=== PATIENT | female | born 1965 | race Two or more races ===

== ENCOUNTER → 2020-12-23 11:13 | Outpatient (BNVA) | payer OTHER, SELFPAY | PROVIDERS: PCP Pediatrics; Referring Provider Pediatrics; Visit Provider Nurse Practitioner | DX: Z76.89 Persons encountering health services in other specified circumstances (principal) | CPT/HCPCS: Q3014 ==

== ENCOUNTER 2020-12-27 15:46 | Outpatient (REF) | payer OTHER, SELFPAY ==
[2020-12-27 16:15] LABS: MANUAL DIFF FLAG NO
[2020-12-27 16:19] LABS: Basophils Percent Auto 0.4 % (0-2); Eosinophils Absolute Auto 0.1 X10*3/uL (0.0-0.4); Eosinophils Percent Auto 1.5 % (0-4); Hematocrit 36.5 % (37-47); Hemoglobin 11.9 g/dl (12.0-16.0); Imm Gran Abs Auto 0.01 X10*3/uL (0.00-0.03); Imm Gran Pct Auto 0.2 % (0.0-0.4); Lymphocytes Absolute Auto 1.8 X10*3/uL (1.2-4.9); Lymphocytes Percent Auto 39.9 % (20-40); Mean Corpuscular HGB Conc 32.6 g/dl (31.0-35.0); Mean Corpuscular Hemoglobin 30.1 pg (27.0-33.0); Mean Corpuscular Volume 92.4 fL (80-98); Mean Platelet Volume 10.5 fL (9.4-12.3); Monocytes Absolute Auto 0.4 X10*3/uL (0.1-1.2); Monocytes Percent Auto 9.3 % (2-11); Neutrophils Absolute Auto 2.2 X10*3/uL (2.0-8.3); Neutrophils Percent Auto 48.7 % (45-73); Platelet Count 189 X10*3/uL (160-400); Red Blood Count 3.95 X10*6/uL (4.20-5.50); Red Cell Distribution Width 12.8 % (11.0-16.0); White Blood Count 4.6 X10*3/uL (4.8-10.8)
[2020-12-27 16:40] LABS: Alanine Aminotransferase 29 U/L (0-31); Albumin Level 4.2 g/dL (3.5-5.0); Alkaline Phosphatase 90 U/L (39-117); Amylase 84 U/L (28-100); Anion Gap 12 (12-20); Aspartate Amino Transferase 21 U/L (5-31); Bilirubin Total 0.5 mg/dL (0.0-1.0); Blood Urea Nitrogen 18 mg/dL (9-16); Calcium 9.1 mg/dL (8.4-10.2); Carbon Dioxide 32 mmol/L (22-29); Chloride 103 mmol/L (96-108); Estimated Glomerular Filt Rate 47; Glucose Random 99 mg/dL (60-115); Lipase 49 U/L (8-78); Potassium 4.2 mmol/L (3.3-5.1); Sodium 143 mmol/L (135-145); Total Protein 6.7 g/dL (6.5-8.0)
== END 2020-12-27 15:47 | disposition home or self-care (01) ==
LOC: HO.LAB 15:46
PROVIDERS: Visit Provider Nurse Practitioner
DX: K21.9 Gastro-esophageal reflux disease without esophagitis (principal); K22.4 Dyskinesia of esophagus; R13.10 Dysphagia, unspecified; R63.4 Abnormal weight loss
CPT/HCPCS: 36415; 80053; 82150; 83690; 85025

== ENCOUNTER → 2021-03-09 09:37 | Outpatient (BNVA) | payer OTHER, SELFPAY | PROVIDERS: PCP Pediatrics; Visit Provider Nurse Practitioner | DX: R13.10 Dysphagia, unspecified (principal); K22.4 Dyskinesia of esophagus; K21.9 Gastro-esophageal reflux disease without esophagitis; K59.00 Constipation, unspecified; R63.4 Abnormal weight loss; R14.0 Abdominal distension (gaseous) | CPT/HCPCS: Q3014 ==

== ENCOUNTER 2021-07-07 11:04 | Outpatient (REF) | payer OTHER, SELFPAY ==
--- NOTE | ~2021-07-07 | XR_ITS ---
EXAMINATION: XR FOOT, LEFT CLINICAL INFORMATION: Left foot pain COMPARISON: None TECHNIQUE: AP, lateral, and oblique views of the left foot. FINDINGS: The bones and soft tissues are normal. No fracture. Alignment is anatomic. Joint spaces are maintained. XR/XR foot LT min 3V IMPRESSION: Normal left foot.
== END 2021-07-07 11:05 | disposition home or self-care (01) ==
LOC: HO.XRAY 11:04
PROVIDERS: PCP Pediatrics; Visit Provider Pediatrics
DX: M79.671 Pain in right foot (principal); M79.672 Pain in left foot
CPT/HCPCS: 73630

== ENCOUNTER → 2021-09-12 09:57 | Outpatient (BNVA) | payer OTHER, SELFPAY | PROVIDERS: PCP Pediatrics; Referring Provider Pediatrics; Visit Provider Nurse Practitioner | DX: K59.00 Constipation, unspecified (principal); K22.4 Dyskinesia of esophagus; K21.9 Gastro-esophageal reflux disease without esophagitis; R14.0 Abdominal distension (gaseous); R13.10 Dysphagia, unspecified | CPT/HCPCS: 99212 ==

== ENCOUNTER → 2021-12-14 10:23 | Outpatient (BNVA) | payer OTHER, SELFPAY | PROVIDERS: PCP Pediatrics; Referring Provider Pediatrics; Visit Provider Nurse Practitioner | DX: K22.4 Dyskinesia of esophagus (principal); K21.9 Gastro-esophageal reflux disease without esophagitis; K59.00 Constipation, unspecified; R13.10 Dysphagia, unspecified; R14.0 Abdominal distension (gaseous); R07.9 Chest pain, unspecified; M81.0 Age-related osteoporosis without current pathological fracture | CPT/HCPCS: 99212 ==

== ENCOUNTER 2022-02-06 10:11 | Outpatient (REF) | payer OTHER, SELFPAY ==
--- NOTE | ~2022-02-06 | FL_ITS ---
EXAMINATION: FL BARIUM SWALLOW CLINICAL INFORMATION: Dysphagia COMPARISON: None TECHNIQUE: Barium swallow examination is performed using fluoroscopic evaluation in addition to multiple fluoroscopic spot views. The patient is imaged both upright and prone and using both thick and thin sulfate along with effervescent granules. Barium was also administered. Fluoroscopy time: 0.7 minutes DAP: 7.4 Gycm2 Images: 37 FINDINGS: The swallowing mechanism is normal. No aspiration or penetration is seen. Esophageal motility is normal. There is a small sliding type hiatal hernia. No esophageal mass stricture or mucosal irregularity is seen. No reflux is seen. The barium tablet passed freely into the stomach. FL/FL barium swallow IMPRESSION: Small sliding hiatal hernia otherwise unremarkable exam.
== END 2022-02-06 10:12 | disposition home or self-care (01) ==
LOC: HO.XRAY 10:11
PROVIDERS: PCP Pediatrics; Visit Provider Nurse Practitioner
DX: R13.10 Dysphagia, unspecified (principal); R07.9 Chest pain, unspecified
CPT/HCPCS: 74220

== ENCOUNTER → 2022-08-24 14:31 | Outpatient (BNVA) | payer OTHER, SELFPAY | PROVIDERS: PCP Pediatrics; Visit Provider Nurse Practitioner | DX: K21.9 Gastro-esophageal reflux disease without esophagitis (principal); K59.00 Constipation, unspecified; K22.4 Dyskinesia of esophagus; R13.10 Dysphagia, unspecified | CPT/HCPCS: 99212 ==

== ENCOUNTER 2023-01-25 11:53 | Outpatient (REF) | payer OTHER, SELFPAY ==
--- NOTE | ~2023-01-25 | XR_ITS ---
EXAMINATION: XR THORACOLUMBAR SPINE CLINICAL INFORMATION: Mid back pain. COMPARISON: Chest radiograph 02/10/2019. TECHNIQUE: 3 views thoracic spine. FINDINGS: The vertebral alignment is normal. No intrinsic bony abnormality. The disc heights and neural foramina are well maintained. The endplates and posterior elements are normal. No fracture or subluxation. The surrounding prevertebral soft tissues are unremarkable. Since the prior study, a left chest wall pacemaker has been placed with three leads, one in the atria, one in the coronary sinus and one in the right ventricle. XR/XR thoracic spine 2V IMPRESSION: Unremarkable examination of the thoracic spine.
== END 2023-01-25 11:54 | disposition home or self-care (01) ==
LOC: HO.XRAY 11:53
PROVIDERS: PCP Pediatrics; Visit Provider Pediatrics
DX: M54.6 Pain in thoracic spine (principal)
CPT/HCPCS: 72070

== ENCOUNTER → 2023-02-22 13:54 | Outpatient (BNVA) | payer OTHER, SELFPAY | PROVIDERS: PCP Pediatrics; Visit Provider Nurse Practitioner | DX: K59.00 Constipation, unspecified (principal); K21.9 Gastro-esophageal reflux disease without esophagitis; K22.4 Dyskinesia of esophagus; R10.11 Right upper quadrant pain; R13.10 Dysphagia, unspecified; M54.2 Cervicalgia; M54.50 Low back pain, unspecified | CPT/HCPCS: 99212 ==

== ENCOUNTER 2023-02-26 16:07 | Outpatient (REF) | payer OTHER, SELFPAY ==
--- NOTE | ~2023-02-26 | XR_ITS ---
EXAMINATION: XR CERVICAL SPINE XR LUMBAR SPINE CLINICAL INDICATIONS: Neck pain and back pain. COMPARISON: Lumbar spine 06/13/2018. TECHNIQUE: Lumbar spine 3 views. Cervical spine 3 views. FINDINGS: LUMBAR SPINE: There is normal lumbar lordosis. There is loss of L2-L3 disc height with ventral spondylosis. The rest of the disc heights, vertebral heights and alignment is normal. No visible acute fracture, dislocation or subluxation seen. No aggressive lytic or sclerotic process. The SI joints are symmetrical and normal. The paravertebral soft tissues are normal. CERVICAL SPINE: There is normal cervical lordosis. The vertebral heights, alignment and disc heights are normal. There is a soft tissue density in the right mid neck on AP view, question neck mass. XR/XR cervical spine 2V IMPRESSION: Degenerative disc changes L2-L2 disc levels with mild ventral spondylosis. No visible acute fracture or dislocation seen. Unremarkable cervical spine exam except for a soft tissue mass right mid neck. Correlate with CT or ultrasound of the neck.
--- NOTE | ~2023-02-26 | XR_ITS ---
EXAMINATION: XR CERVICAL SPINE XR LUMBAR SPINE CLINICAL INDICATIONS: Neck pain and back pain. COMPARISON: Lumbar spine 06/13/2018. TECHNIQUE: Lumbar spine 3 views. Cervical spine 3 views. FINDINGS: LUMBAR SPINE: There is normal lumbar lordosis. There is loss of L2-L3 disc height with ventral spondylosis. The rest of the disc heights, vertebral heights and alignment is normal. No visible acute fracture, dislocation or subluxation seen. No aggressive lytic or sclerotic process. The SI joints are symmetrical and normal. The paravertebral soft tissues are normal. CERVICAL SPINE: There is normal cervical lordosis. The vertebral heights, alignment and disc heights are normal. There is a soft tissue density in the right mid neck on AP view, question neck mass. XR/XR lumbar spine 2-3V IMPRESSION: Degenerative disc changes L2-L2 disc levels with mild ventral spondylosis. No visible acute fracture or dislocation seen. Unremarkable cervical spine exam except for a soft tissue mass right mid neck. Correlate with CT or ultrasound of the neck.
== END 2023-02-26 16:08 | disposition home or self-care (01) ==
LOC: HO.XRAY 16:07
PROVIDERS: PCP Pediatrics; Visit Provider Nurse Practitioner
DX: M54.2 Cervicalgia (principal); M54.50 Low back pain, unspecified
CPT/HCPCS: 72040; 72100

== ENCOUNTER 2023-03-29 09:08 | Outpatient (REF) | payer OTHER, SELFPAY ==
--- NOTE | ~2023-03-29 | US_ITS ---
EXAMINATION: US ABDOMEN COMPLETE CLINICAL INFORMATION: Right upper quadrant pain. COMPARISON: CT abdomen and pelvis 10/17/2018. Ultrasound abdomen complete 09/17/2018. TECHNIQUE: Real-time imaging of the abdominal viscera. FINDINGS: PANCREAS: Normal. ABDOMINAL AORTA: The proximal, mid, and distal segments are normal in caliber. INFERIOR VENA CAVA: Visualized portions are normal. LIVER: The liver is normal in size. The liver contour is normal. There is diffuse increased liver parenchymal echogenicity. No focal hepatic lesion. There is no intrahepatic biliary duct dilatation seen. GALLBLADDER: The gallbladder is physiologically distended. Multiple mobile gallstones are present. No evidence of gallbladder wall thickening or pericholecystic fluid. COMMON BILE DUCT: Normal in caliber measuring 0.5 cm in diameter. RIGHT KIDNEY: At the interpolar aspect medially, a 2.5 cm in maximal diameter benign, simple cyst is seen, for which no imaging follow-up is recommended. No hydronephrosis or renal calculi. The kidney measures 11.4 cm in maximum dimension. LEFT KIDNEY: Normal. No hydronephrosis. No renal calculi or focal parenchymal lesions. The kidney measures 11.2 cm in maximum dimension. SPLEEN: Normal. The spleen measures 9.5 cm in maximum dimension. FREE FLUID: None. US/US abdomen complete IMPRESSION: 1. There is cholelithiasis, without cholecystitis or choledocholithiasis. 2. There is generalized increase in hepatic echotexture, consistent with fatty infiltration or hepatocellular disease. Please correlate clinically. No focal hepatic mass or intrahepatic biliary dilatation is seen. 3. A 2.5 cm benign, simple right renal cyst is seen, for which no imaging follow-up is recommended.
== END 2023-03-29 09:09 | disposition home or self-care (01) ==
LOC: HO.US 09:08
PROVIDERS: PCP Pediatrics; Visit Provider Nurse Practitioner
DX: R10.11 Right upper quadrant pain (principal)
CPT/HCPCS: 76700

== ENCOUNTER 2023-05-28 08:46 | Outpatient (REF) | payer OTHER, SELFPAY ==
--- NOTE | ~2023-05-28 | CT_ITS ---
EXAMINATION: CT SOFT TISSUE NECK WITH CONTRAST CLINICAL INFORMATION: Abnormal findings. Question mass on recent spinal radiographs. COMPARISON: No relevant prior imaging. TECHNIQUE: Following the intravenous administration of 60 mL of Omnipaque 350 intravenous contrast, helical imaging was performed in the axial plane with generation of coronal and sagittal reformatted images. This CT examination was performed using dose optimization techniques as appropriate, variously including the following: *Automated exposure control *Adjustment of mA and/or kV according to patient size (this includes techniques or standardized protocols for targeted exams where dose is matched to indication/reason for exam; i.e. extremities or head) *Use of iterative reconstruction technique DLP: 343 mGy-cm FINDINGS: Mucosal spaces are symmetric. Parapharyngeal and retromaxillary fat is preserved. Pharmacovigilance Safety Expert spaces are symmetric. The parotid and submandibular glands are normal. The tongue base and epiglottis are normal. Preepiglottic fat is preserved. Glottic and subglottic airways are widely patent. The thyroid gland is normal and the remainder of the visualized visceral soft tissues are normal. There are no pathologically enlarged cervical lymph nodes. No mediastinal or axillary adenopathy is visualized within the [id number] of this examination. Lung apices are clear. The aortic arch apex is normal. Cervical carotid and vertebral arteries are patent. Internal jugular veins fill symmetrically. There is no acute osseous finding. Specifically no worrisome lytic or blastic osseous lesion. Grossly no spinal canal compromise. The skull base is intact. No mastoid middle ear effusion. No active paranasal sinus disease. Limited visualization of the intracranial anatomy reveals no abnormal finding. CT/CT soft tissue neck w IV con IMPRESSION: Unremarkable soft tissue neck CT scan. No discrete enhancing soft tissue mass or adenopathy.
[2023-05-28] MEDS: iohexoL 350 MG/ML 100 ML INFUS..BTL IV (09:44)
[2023-05-29 11:18] LABS: Creatinine POC 0.9 mg/dL (0.5-1.4); GFR POC > 60
== END 2023-05-28 08:47 | disposition home or self-care (01) ==
LOC: HO.CT 08:46
PROVIDERS: Visit Provider Nurse Practitioner
DX: M54.2 Cervicalgia (principal); R13.10 Dysphagia, unspecified; R20.2 Paresthesia of skin; R63.4 Abnormal weight loss; R93.89 Abnormal findings on diagnostic imaging of other specified body structures
CPT/HCPCS: 70491; 82565; Q9967

== ENCOUNTER 2023-05-28 09:44 | Outpatient (REF) | payer OTHER, SELFPAY ==
[2023-05-28 10:22] LABS: MANUAL DIFF FLAG NO
[2023-05-28 11:33] LABS: Basophils Percent Auto 0.7 % (0-2); Eosinophils Absolute Auto 0.2 X10*3/uL (0.0-0.4); Eosinophils Percent Auto 2.8 % (0-4); Hematocrit 37.4 % (37.0-47.0); Hemoglobin 12.2 g/dl (12.0-16.0); Imm Gran Abs Auto 0.02 X10*3/uL (0.00-0.03); Imm Gran Pct Auto 0.4 % (0.0-0.4); Lymphocytes Absolute Auto 1.9 X10*3/uL (1.2-4.9); Lymphocytes Percent Auto 35.1 % (20-40); Mean Corpuscular HGB Conc 32.6 g/dl (31.0-35.0); Mean Corpuscular Hemoglobin 30.6 pg (27.0-33.0); Mean Corpuscular Volume 93.7 fL (80.0-98.0); Monocytes Absolute Auto 0.4 X10*3/uL (0.1-1.2); Monocytes Percent Auto 6.5 % (2-11); Neutrophils Percent Auto 54.5 % (45-73); Platelet Count 228 X10*3/uL (160-400); Red Blood Count 3.99 X10*6/uL (4.20-5.50); Red Cell Distribution Width 13.1 % (11.0-16.0); White Blood Count 5.4 X10*3/uL (4.8-10.8)
[2023-05-28 12:43] LABS: Blood Urea Nitrogen 20 mg/dL (9-16); Estimated Glomerular Filt Rate 45
[2023-05-28 13:08] LABS: Lipase 41 U/L (8-78); TSH reflex Free T4 1.28 uIU/mL (0.32-4.0)
== END 2023-05-28 09:45 | disposition home or self-care (01) ==
LOC: HO.LAB 09:44
PROVIDERS: Absent Provider Pediatrics; PCP Pediatrics; Visit Provider Nurse Practitioner
DX: I10 Essential (primary) hypertension (principal); E11.9 Type 2 diabetes mellitus without complications; R93.89 Abnormal findings on diagnostic imaging of other specified body structures
CPT/HCPCS: 36415; 82565; 83690; 84443; 84520; 85025

== ENCOUNTER 2023-06-04 10:55 | Outpatient (AMB) | payer OTHER, SELFPAY ==
--- NOTE | 2023-06-04 11:02 | A.OFFVIS_ITS ---
Intake Vital Signs 06/04/23 11:06 Height 5 ft 6 in Weight 233 lb 3.985 oz BMI 37.6 BP 123/63 Blood Pressure Location Rt brachial Position Sitting Pulse 81 Intake Visit Reasons: Follow up CT and US Intake Note: Patient presents to in office visit follow up of CT and US. CC: Patient c/o RUQ abdominal pain with nausea, vomiting, and diarrhea. She reports bloating, dizzinness, feeling short of breath when bending down, and blood when she wipes. Denies other GI Symptoms. 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 Now on Emgaly. Having pain that is described as tingling that starts in her tailbone and seems to her to go all the way up her spine in her neck. Her pcp gave her methocarbamol and ordered PT and a thoracic spine xray.? I will add cervical and lumbar spine xray for her convenience. She is having a sharp/pressure pain that starts in the right flank and goes around under my breast. It is worse with touching, laying on that side. It is unclear if it is r/t eating or BM's. I will get US to r/o GB disease. We reviewed the barium swallow in it does not show any severe findings or worsening of her known hiatal hernia that is small and sliding.? She continues on her pantoprazole with good control of her heartburn, on dicyclomine for control of her esophageal spasms, and bisacodyl with good control of her constipation. ROV 6 mos. (2) Constipation: ?Code(s): K59.00 - Constipation, unspecified (3) GERD (gastroesophageal reflux disease): ?Code(s): K21.9 - Gastro-esophageal reflux disease without esophagitis (4) Esophageal spasm: ?Code(s): K22.4 - Dyskinesia of esophagus (5) Low back pain: ?Code(s): M54.50 - Low back pain, unspecified (6) Neck pain: ?Code(s): M54.2 - Cervicalgia (7) Dysphagia: ?Comment: Most likely esophageal spasm/dysmotility as it resolved with dicyclomine ?Code(s): R13.10 - Dysphagia, unspecified ? ? ? Orders: Orders US abdomen complet e Today R10.11 - Right upp er quadrant pain ? XR cervical spine 2V Today M54.2 - Cervicalgi a, M54.50 - Low ba ck pain, unspecifi ed ? XR lumbar spine 2- 3V Today M54.2 - Cervicalgi a, M54.50 - Low ba ck pain, unspecifi ed ? Medications: Refilled dicyclomine 20 mg (2 x 10 mg) PO QID 30 days 240 caps 6RF K22.4 - Dyskinesia of esophagus, R13 .10 - Dysphagia, u nspecified ? pantoprazole 40 mg? PO BID 60 t abs 6RF K21.9 - Gastro-eso phageal reflux dis ease without esoph agitis ? simethicone 180 mg? PO QID 120 caps 6RF R14.0 - Abdominal distension (gaseou s) ? docusate sodium 100 mg? PO BID 60 caps 6RF K59.00 - Constipat ion, unspecified ? bisacodyl (Dulcola x (bisacodyl)) 10 mg (2 x 5 mg) P O BEDTIME 30 days 60 tabs 6RF K59.00 - Constipat ion, unspecified ? ULTRASOUND OF THE ABDOMEN 04/04/23 FINDINGS: PANCREAS: Normal. ABDOMINAL AORTA: The proximal, mid, and distal segments are normal in caliber. INFERIOR VENA CAVA: Visualized portions are normal. LIVER: The liver is normal in size. The liver contour is normal. There is diffuse increased liver parenchymal echogenicity.? No focal hepatic lesion. There is no intrahepatic biliary duct dilatation seen. GALLBLADDER: The gallbladder is physiologically distended. Multiple mobile gallstones are present. No evidence of gallbladder wall thickening or pericholecystic fluid. COMMON BILE DUCT: Normal in caliber measuring 0.5 cm in diameter. RIGHT KIDNEY: At the interpolar aspect medially, a 2.5 cm in maximal diameter benign, simple cyst is seen, for which no imaging follow-up is recommended. No hydronephrosis or renal calculi. The kidney measures 11.4 cm in maximum dimension. LEFT KIDNEY: Normal. No hydronephrosis. No renal calculi or focal parenchymal lesions. The kidney measures 11.2 cm in maximum dimension. SPLEEN: Normal. The spleen measures 9.5 cm in maximum dimension. FREE FLUID: None. US/US abdomen complete IMPRESSION: ? 1. There is cholelithiasis, without cholecystitis or choledocholithiasis. ? 2. There is generalized increase in hepatic echotexture, consistent with fatty infiltration or hepatocellular disease. Please correlate clinically. No focal hepatic mass or intrahepatic biliary dilatation is seen. ? 3. A 2.5 cm benign, simple right renal cyst is seen, for which no imaging follow-up is recommended. X-RAY OF THE CERVICAL THORACIC SPINE 03/07/23 FINDINGS: LUMBAR SPINE: There is normal lumbar lordosis. There is loss of L2-L3 disc height with ventral spondylosis. The rest of the disc heights, vertebral heights and alignment is normal. No visible acute fracture, dislocation or subluxation seen. No aggressive lytic or sclerotic process. The SI joints are symmetrical and normal. The paravertebral soft tissues are normal. CERVICAL SPINE: There is normal cervical lordosis. The vertebral heights, alignment and disc heights are normal. There is a soft tissue density in the right mid neck on AP view, question neck mass. XR/XR lumbar spine 2-3V IMPRESSION: Degenerative disc changes L2-L2 disc levels with mild ventral spondylosis. No visible acute fracture or dislocation seen. ? Unremarkable cervical spine exam except for a soft tissue mass right mid neck. Correlate with CT or ultrasound of the neck. ? CORRESPONDENCE . On 04/05/23 @ 09:39 Dania Laguerre Wrote To Mario PT CT scheduled for 04/16 and follow up in office was scheduled for 04/19. On 04/05/23 @ 08:08 MarioSharon Wrote To Dania Laguerre Please get her in to see me n the next week or 2 to go over her US. ? ? TODAY'S VISIT [place] #declines She is here today with her daughter who is supportive. We review the results and she has multiple mobile gallstones, so this COULD be the pain but I would like to get a HIDA scan. The pain does not present in the usual GB pattern, it is always there. Her T spine and C spine seem to be okay, had lumbar spondylosis worst at L2. Will print xrays for her PCP. She developed sudden N/V/D a few days ago, so will get a GI panel. NO fevers or chills, no known sick contacts, ate at [employer] (cheese and zambrano fries!!), no seafood or undercooked food, no new medications. She really has not eaten since, so no diarrhea r/t this. ROV 4 weeks PFSH Medical History Constipation Surgical History Hx of section Hx of colonoscopy Hx of endoscopy Family History Mother Thyroid condition Asthma Heart problem Diabetes Migraines Sister Thyroid condition Asthma Diabetes Migraines Father Asthma Diabetes Migraines Brother Asthma Diabetes Migraines Heart problem Social History Household Members: Children Alcohol intake: current Alcohol intake frequency: does not drink Current occupational status: disabled Review of Systems Const Denies fatigue, Denies fever(s), Denies night sweats, Denies poor appetite, Reports weakness and Denies weight loss ENT Reports Normal hearing present, Denies dental pain, Denies dysphagia, Denies hearing loss, Denies mouth pain, Denies odynophagia, Denies throat swelling, Denies tongue swelling and Reports other (Dentition adequate) Card Reports no additional complaints Resp Reports no additional complaints GI Reports abdominal pain, Denies melena, Denies bloating, Denies hematochezia, Denies constipation, Denies GI cramping, Denies dysphagia, Denies excessive flatus, Denies early satiety, Reports heartburn, Reports diarrhea, Reports nausea, Denies odynophagia, Denies vomiting and Denies hematemesis Skin/Breast Denies pruritus, Denies lesions, Denies rash and Denies jaundice Neuro Reports Normal hearing present, Denies Abnormal speech present and Reports weakness Endo Denies fatigue Aller/Immun Denies throat swelling and Denies tongue swelling Physical Exam Vital Signs: Last Vital Signs Pulse 81 06/04/23 11:06 BP 123/63 06/04/23 11:06 BMI result Body Mass Index 37.6 Const General: cooperative, no acute distress, well developed and well groomed Nutritional Appearance: well nourished and obese Orientation/consciousness: oriented to person, oriented to place and oriented to time Limitations: No language barrier, ambulation with cane, ambulation with walker and wheelchair HEENT Head: Yes normocephalic and Yes atraumatic Eyes General: appearance normal, both eyes and all related structures Pupils: Equal, round and reactive pupils present Neck Neck: Yes normal visual inspection and Yes no lymphadenopathy Thyroid: Thyroid normal Resp Effort & Inspection: normal respiratory effort and able to speak in complete sentences Auscultation: clear to auscultation bilaterally Cardio Rate: regular rate Rhythm: regular rhythm Heart sounds: Normal, physiologic split S2 sound present Peripheral pulses: radial pulses present and posterior tibial pulses present GI Inspection: No distended and No Abdominal panniculus present Palpation (GI): Soft to palpation, Tenderness to palpation present (GI) in the RUQ, no guarding, not rigid and No hepatosplenomegaly present Percussion: Yes normal to percussion Auscultation: normal bowel sounds Rectal Exam - Female: deferred Skin General skin exam: no rashes or lesions noted, turgor normal, skin not dry, no jaundice, No spider nevi and no striae Rashes: no rashes Nails: normal Neuro General: oriented to person, oriented to place and oriented to time Cranial nerves: Yes Equal, round and reactive pupils present and Yes Normal hearing present Speech: No Abnormal speech present Extrem General: Yes normal to inspection, No clubbing, No cyanosis and No edema Psych Appearance: grossly normal and well kempt Mental Status: mental status grossly normal Speech and movement: Normal speech and movement present Affect: normal affect Attitude: cooperative Thought process: Normal thought process present and not confabulating Thought content: Normal thought content present Insight: Limited insight present (Psych) Judgement: Limited judgement present (Psych) Assessment & Plan Assessment & Plan (1) RUQ abdominal pain: Code(s): R10.11 - Right upper quadrant pain Plan: [place] #declines She is here today with her daughter who is supportive. We review the results and she has multiple mobile gallstones, so this COULD be the pain but I would like to get a HIDA scan. The pain does not present in the usual GB pattern, it is always there. Her T spine and C spine seem to be okay, had lumbar spondylosis worst at L2. Will print xrays for her PCP. She developed sudden N/V/D a few days ago, so will get a GI panel. NO fevers or chills, no known sick contacts, ate at [employer] (cheese and zambrano fries!!), no seafood or undercooked food, no new medications. She really has not eaten since, so no diarrhea r/t this. ROV 4 weeks (2) Gallstones: Code(s): K80.20 - Calculus of gallbladder without cholecystitis without obstruction (3) Acute diarrhea: Code(s): R19.7 - Diarrhea, unspecified (4) Dysphagia: Comment: Most likely esophageal spasm/dysmotility as it resolved with dicyclomine Code(s): R13.10 - Dysphagia, unspecified (5) GERD (gastroesophageal reflux disease): Code(s): K21.9 - Gastro-esophageal reflux disease without esophagitis (6) Constipation: Code(s): K59.00 - Constipation, unspecified (7) Esophageal spasm: Code(s): K22.4 - Dyskinesia of esophagus Orders: Orders NM hepatobiliary w pharm Today R10.11 - Right upper quadrant pain GI Panel Today R10.11 - Right upper quadrant pain Coding Level of Care Code Est Pt Level 4 (22284) Diagnoses RUQ abdominal pain R10.11 Gallstones K80.20 Acute diarrhea R19.7 Dysphagia R13.10 GERD (gastroesophageal reflux disease) K21.9 Constipation K59.00 Esophageal spasm K22.4
[2023-06-04 11:06] VITALS: BP 123/63; PULSE 81; BMI 37.6
== END 2023-06-04 11:44 | disposition home or self-care (01) ==
PROVIDERS: PCP Pediatrics; Visit Provider Nurse Practitioner
DX: R10.11 Right upper quadrant pain (principal); K80.20 Calculus of gallbladder without cholecystitis without obstruction; R19.7 Diarrhea, unspecified; R13.10 Dysphagia, unspecified; K21.9 Gastro-esophageal reflux disease without esophagitis; K59.00 Constipation, unspecified; K22.4 Dyskinesia of esophagus
CPT/HCPCS: 99214

== ENCOUNTER → 2023-06-04 10:55 | Outpatient (BNVA) | payer OTHER, SELFPAY | PROVIDERS: PCP Pediatrics; Visit Provider Nurse Practitioner | DX: K80.20 Calculus of gallbladder without cholecystitis without obstruction (principal); R10.11 Right upper quadrant pain; R19.7 Diarrhea, unspecified; R13.10 Dysphagia, unspecified; K21.9 Gastro-esophageal reflux disease without esophagitis; K59.00 Constipation, unspecified; K22.4 Dyskinesia of esophagus | CPT/HCPCS: 99212 ==

== ENCOUNTER 2023-06-05 10:11 | Outpatient (REF) | payer OTHER, SELFPAY ==
[2023-06-06 10:26] LABS: Adenovirus F 40/41 Not Detected (Not Detect.); Astrovirus Not Detected (Not Detect.); Campylobacter Not Detected (Not Detect.); Cryptosporidium Not Detected (Not Detect.); Cyclospora cayetanensis Not Detected (Not Detect.); E. coli EAEC Not Detected (Not Detect.); E. coli EPEC Not Detected (Not Detect.); E. coli ETEC Not Detected (Not Detect.); E. coli STEC Not Detected (Not Detect.); Entamoeba histolytica Not Detected (Not Detect.); Giardia lamblia Not Detected (Not Detect.); Norovirus GI/GII Not Detected (Not Detect.); Plesiomonas shigelloides Not Detected (Not Detect.); Rotavirus A Not Detected (Not Detect.); Salmonella Not Detected (Not Detect.); Sapovirus Not Detected (Not Detect.); Shigella sp./EIEC Not Detected (Not Detect.); Vibrio Not Detected (Not Detect.); Vibrio Cholerae Not Detected (Not Detect.); Yersinia enterocolitica Not Detected (Not Detect.)
== END 2023-06-05 10:12 | disposition home or self-care (01) ==
LOC: HO.LAB 10:11
PROVIDERS: PCP Pediatrics; Visit Provider Nurse Practitioner
DX: R10.11 Right upper quadrant pain (principal)
CPT/HCPCS: 87507

== ENCOUNTER → 2023-06-28 10:46 | Outpatient (REF) | payer OTHER, SELFPAY ==
--- NOTE | ~2023-06-28 | NM_ITS ---
EXAMINATION: BILIARY TRACT IMAGING STUDY WITH CCK CLINICAL INFORMATION: Right upper quadrant abdominal pain.. COMPARISON: Abdominal ultrasound done on 03/29/2023. TECHNIQUE: Serial gamma scintillation camera images were obtained over the abdomen for a total observation period of 60 minutes following the intravenous administration of 5.0 mCi Tc-99m mebrofenin. The radiotracer was injected through right antecubital superficial vein without complications. FINDINGS: There is good concentration of activity in the liver by 5 minutes post injection. Biliary activity is visualized by 16 minutes. The gallbladder is well visualized by 55 minutes. Small bowel is well visualized by 18 minutes. At 60 minutes post radiopharmaceutical injection, a 30-minute infusion of 2.1 micrograms Sincalide was then begun and an additional 40 minutes of images were obtained. There is good emptying of the gallbladder. By the end of the study there is good clearance of activity from the liver and visualization of diffuse small bowel activity. The calculated gallbladder ejection fraction is 77% (normal gallbladder ejection fraction is greater than 35%). NM/NM hepatobiliary w pharm IMPRESSION: Visualization of the gallbladder is evidence of a patent cystic duct and strong evidence against the diagnosis of acute cholecystitis. The common bile duct is patent. Gallbladder emptying and ejection fraction are normal. Liver function appears normal.
== END ==
LOC: HO.NUCMED 10:46
PROVIDERS: Visit Provider Nurse Practitioner
DX: R10.11 Right upper quadrant pain (principal)
CPT/HCPCS: 78227; A9537; J2805

== ENCOUNTER 2023-07-02 11:16 | Outpatient (AMB) | payer OTHER, SELFPAY ==
--- NOTE | 2023-07-02 11:18 | A.OFFVIS_ITS ---
Intake Vital Signs 07/02/23 11:20 Height 5 ft 6 in Weight 231 lb 0.711 oz BMI 37.3 BP 125/66 Blood Pressure Location Rt brachial Position Sitting Pulse 79 Intake Visit Reasons: 3 week follow up Intake Note: Patient presents to in office visit today in 3 weeks follow up for NM hepatobiliary scan. CC: Patient c/o RLQ abdominal pain with radiation to her back and leg, nausea, and diarrhea. She reports bloating, vertigo, and shortness of breath. Hospital Laboratory Technician Required: No Accompanied by: Self / Same As Patient Allergies lamotrigine [LAMOTRIGINE] Allergy (Unknown, Verified 07/02/23 11:23) SEVERE RASH sumatriptan [SUMATRIPTAN] Allergy (Unknown, Verified 07/02/23 11:23) SEVERE RASH adhesive tape Allergy (Unknown, Uncoded 12/14/21 10:37) Rash HPI 3 week follow up HPI Details Assessment & Plan (1) RUQ abdominal pain: ?Code(s): R10.11 - Right upper quadrant pain ?Plan: [place] #declines She is here today with her daughter who is supportive. We review the results and she has multiple mobile gallstones, so this COULD be the pain but I would like to get a HIDA scan. The pain does not present in the usual GB pattern, it is always there. Her T spine and C spine seem to be okay, had lumbar spondylosis worst at L2. Will print xrays for her PCP. She developed sudden N/V/D a few days ago, so will get a GI panel. NO fevers or chills, no known sick contacts, ate at [employer] (cheese and zambrano fries!!), no seafood or undercooked food, no new medications. She really has not eaten since, so no diarrhea r/t this. ROV 4 weeks (2) Gallstones: ?Code(s): K80.20 - Calculus of gallbladder without cholecystitis without obstruction (3) Acute diarrhea: ?Code(s): R19.7 - Diarrhea, unspecified (4) Dysphagia: ?Comment: Most likely esophageal spasm/dysmotility as it resolved with dicyclomine ?Code(s): R13.10 - Dysphagia, unspecified (5) GERD (gastroesophageal reflux diseas e): ?Code(s): K21.9 - Gastro-esophageal reflux disease without esophagitis (6) Constipation: ?Code(s): K59.00 - Constipation, unspecified (7) Esophageal spasm: ?Code(s): K22.4 - Dyskinesia of esophagus ? ? ? Orders: Orders NM hepatobiliary w pharm Today R10.11 - Right upp er quadrant pain ? GI Panel Today R10.11 - Right upp er quadrant pain ? LABS: 06/05/23-[address]: Helen Marte MD ORDERED: GI Panel Test Result Flag Reference Site Campylobacter Not Detected Not Detect. P. shigelloides Not Detected Not Detect. Salmonella Not Detected Not Detect. Vibrio Not Detected Not Detect. Vibrio Cholerae Not Detected Not Detect. Y. enterocolit. Not Detected Not Detect. E. coli EAEC Not Detected Not Detect. E. coli EPEC Not Detected Not Detect. E. coli ETEC Not Detected Not Detect. E. coli STEC Not Detected Not Detect. E. coli O157 Not applicable Not Detect. E. coli containing the O157 antigen are a subset of Shiga-like toxin-producing E. coli (STEC). Shigella/EIEC Not Detected Not Detect. Cryptosporidium Not Detected Not Detect. Cyclospora Not Detected Not Detect. E. histolytica Not Detected Not Detect. Giardia lamblia Not Detected Not Detect. Adenovirus Not Detected Not Detect. Astrovirus Not Detected Not Detect. Norovirus Not Detected Not Detect. Rotavirus A Not Detected Not Detect. Sapovirus Not Detected Not Detect. HIDA SCAN 07/01/23 ? ?IMPRESSION: Visualization of the gallbladder is evidence of a patent cystic duct and strong evidence against the diagnosis of acute cholecystitis. The common bile duct is patent. Gallbladder emptying and ejection fraction are normal. Liver function appears normal. ? TODAY'S VISIT [place] #declines She continues to have pain in the RUQ that is worse with prolonged sitting. Diarrhea is lessening, but not the pain. GI panel neg. HIDA shows most leley pain is NOT from gallstones. She is a diabetic (unknown to me) and she is having early satiety, nausea, and poor appetite. She is also on Trulicity. I will get GES. She is on a lot of medications, so I will not treat until I have cedric test (multiple cardiac etc meds). Says she is on nortriptyline for my heart. (??). May consider CT going forward if no answers on the pain. Will get UA to see if any reason to suspect renal stones in pain syndrome. She is on bentyl bid for her esoph motility, and this has not effect on the pain (seems to lessen susp of bowel cramping). ROV 8 weeks. PFSH Medical History Constipation Surgical History Hx of section Hx of colonoscopy Hx of endoscopy Family History Mother Thyroid condition Asthma Heart problem Diabetes Migraines Sister Thyroid condition Asthma Diabetes Migraines Father Asthma Diabetes Migraines Brother Asthma Diabetes Migraines Heart problem Social History Household Members: Children Alcohol intake: current Alcohol intake frequency: does not drink Current occupational status: disabled Review of Systems Const Denies fatigue, Denies fever(s), Denies night sweats, Denies poor appetite and Denies weight loss ENT Reports Normal hearing present, Denies dental pain, Denies dysphagia, Denies hearing loss, Denies mouth pain, Denies odynophagia, Denies throat swelling, Denies tongue swelling and Reports other (Dentition adequate) Card Reports no additional complaints Resp Reports no additional complaints GI Reports abdominal pain, Denies melena, Denies bloating, Denies hematochezia, D enies constipation, Denies GI cramping, Denies dysphagia, Denies excessive flatus, Reports early satiety, Reports heartburn, Reports diarrhea, Reports nausea, Denies odynophagia, Denies vomiting and Denies hematemesis Skin/Breast Denies pruritus, Denies lesions, Denies rash and Denies jaundice Neuro Reports Normal hearing present and Denies Abnormal speech present Endo Denies fatigue Aller/Immun Denies throat swelling and Denies tongue swelling Physical Exam Vital Signs: Last Vital Signs Pulse 79 07/02/23 11:20 BP 125/66 07/02/23 11:20 BMI result Body Mass Index 37.3 Const General: cooperative, no acute distress, well developed and well groomed Nutritional Appearance: well nourished and obese Orientation/consciousness: oriented to person, oriented to place and oriented to time Limitations: language barrier HEENT Head: Yes normocephalic and Yes atraumatic Eyes General: appearance normal, both eyes and all related structures Pupils: Equal, round and reactive pupils present Neck Neck: Yes normal visual inspection and Yes no lymphadenopathy Thyroid: Thyroid normal Resp Effort & Inspection: normal respiratory effort and able to speak in complete sentences Auscultation: clear to auscultation bilaterally Cardio Rate: regular rate Rhythm: regular rhythm Heart sounds: Normal, physiologic split S2 sound present Peripheral pulses: radial pulses present and posterior tibial pulses present GI Inspection: No distended, Yes Abdominal panniculus present and Yes obesity Palpation (GI): Soft to palpation, Tenderness to palpation present (GI) in the RUQ, no guarding, not rigid and No hepatosplenomegaly present Percussion: Yes normal to percussion Auscultation: normal bowel sounds Rectal Exam - Female: deferred Skin General skin exam: no rashes or lesions noted, turgor normal, skin not dry, no jaundice, No spider nevi and no striae Rashes: no rashes Nails: normal Neuro General: oriented to person, oriented to place and oriented to time Cranial nerves: Yes Equal, round and reactive pupils present and Yes Normal hearing present Speech: No Abnormal speech present Extrem General: Yes normal to inspection, No clubbing, No cyanosis and No edema Psych Appearance: grossly normal and well kempt Mental Status: mental status grossly normal Speech and movement: Normal speech and movement present Affect: normal affect Attitude: cooperative Thought process: Normal thought process present and not confabulating Thought content: Normal thought content present Insight: Limited insight present (Psych) Judgement: Limited judgement present (Psych) Results Reviewed Results Reviewed: LABS: 06/05/23-[address]: Helen Marte MD ORDERED: GI Panel Test Result Flag Reference Site Campylobacter Not Detected Not Detect. P. shigelloides Not Detected Not Detect. Salmonella Not Detected Not Detect. Vibrio Not Detected Not Detect. Vibrio Cholerae Not Detected Not Detect. Y. enterocolit. Not Detected Not Detect. E. coli EAEC Not Detected Not Detect. E. coli EPEC Not Detected Not Detect. E. coli ETEC Not Detected Not Detect. E. coli STEC Not Detected Not Detect. E. coli O157 Not applicable Not Detect. E. coli containing the O157 antigen are a subset of Shiga-like toxin-producing E. coli (STEC). Shigella/EIEC Not Detected Not Detect. Cryptosporidium Not Detected Not Detect. Cyclospora Not Detected Not Detect. E. histolytica Not Detected Not Detect. Giardia lamblia Not Detected Not Detect. Adenovirus Not Detected Not Detect. Astrovirus Not Detected Not Detect. Norovirus Not Detected Not Detect. Rotavirus A Not Detected Not Detect. Sapovirus Not Detected Not Detect. HIDA SCAN 07/01/23 ? ?IMPRESSION: Visualization of the gallbladder is evidence of a patent cystic duct and strong evidence against the diagnosis of acute cholecystitis. The common bile duct is patent. Gallbladder emptying and ejection fraction are normal. Liver function appears normal. Assessment & Plan Assessment & Plan (1) RUQ abdominal pain: Code(s): R10.11 - Right upper quadrant pain Plan: [place] #declines She continues to have pain in the RUQ that is worse with prolonged sitting. Diarrhea is lessening, but not the pain. GI panel neg. HIDA shows most likely pain is NOT from gallstones. She is a diabetic (unknown to me) and she is having early satiety, nausea, and poor appetite. She is also on Trulicity. I will get GES. She is on a lot of medications, so I will not treat until I have the test (multiple cardiac etc meds). Says she is on nortriptyline for my heart. (??). May consider CT going forward if no answers on the pain. Will get UA to see if any reason to suspect renal stones in pain syndrome. She is on bentyl bid for her esoph motility, and this has not effect on the pain (seems to lessen susp of bowel cramping). ROV 8 weeks. (2) Early satiety: Code(s): R68.81 - Early satiety (3) Gallstones: Code(s): K80.20 - Calculus of gallbladder without cholecystitis without obstruction (4) Acute diarrhea: Code(s): R19.7 - Diarrhea, unspecified (5) Dysphagia: Comment: Most likely esophageal spasm/dysmotility as it resolved with dicyclomine Code(s): R13.10 - Dysphagia, unspecified (6) GERD (gastroesophageal reflux disease): Code(s): K21.9 - Gastro-esophageal reflux disease without esophagitis (7) Abdominal bloating: Code(s): R14.0 - Abdominal distension (gaseous) (8) Diabetes: Code(s): E11.9 - Type 2 diabetes mellitus without complications Orders: Orders NM gastric emptying study 07/02/23 R68.81 - Early satiety UA CC w/rflx Micro + Cult 07/02/23 R10.11 - Right upper quadrant pain Coding Level of Care Code Est Pt Level 4 (49200) Diagnoses RUQ abdominal pain R10.11 Early satiety R68.81 Gallstones K80.20 Acute diarrhea R19.7 Dysphagia R13.10 GERD (gastroesophageal reflux disease) K21.9 Abdominal bloating R14.0 Diabetes E11.9
[2023-07-02 11:20] VITALS: BP 125/66; PULSE 79; BMI 37.3
== END 2023-07-02 12:04 | disposition home or self-care (01) ==
PROVIDERS: PCP Pediatrics; Visit Provider Nurse Practitioner
DX: R10.11 Right upper quadrant pain (principal); R68.81 Early satiety; K80.20 Calculus of gallbladder without cholecystitis without obstruction; R19.7 Diarrhea, unspecified; R13.10 Dysphagia, unspecified; K21.9 Gastro-esophageal reflux disease without esophagitis; R14.0 Abdominal distension (gaseous); E11.9 Type 2 diabetes mellitus without complications
CPT/HCPCS: 99214

== ENCOUNTER → 2023-07-02 11:16 | Outpatient (BNVA) | payer OTHER, SELFPAY | PROVIDERS: PCP Pediatrics; Visit Provider Nurse Practitioner | DX: R10.11 Right upper quadrant pain (principal); R68.81 Early satiety; K80.20 Calculus of gallbladder without cholecystitis without obstruction; R19.7 Diarrhea, unspecified; R13.10 Dysphagia, unspecified; K21.9 Gastro-esophageal reflux disease without esophagitis; R14.0 Abdominal distension (gaseous); E11.9 Type 2 diabetes mellitus without complications | CPT/HCPCS: 99212 ==

== ENCOUNTER → 2023-08-01 07:45 | Outpatient (REF) | payer OTHER, SELFPAY ==
--- NOTE | ~2023-08-01 | NM_ITS ---
EXAMINATION: RADIONUCLIDE SOLID FOOD GASTRIC EMPTYING 4-HOUR STUDY CLINICAL INFORMATION: Early satiety. COMPARISON: Hepatobiliary scan done on 06/28/2023. TECHNIQUE: A standard meal consisting of 4 oz of Egg Beaters brand tagged with 1000 microcuries Tc-99m Sulfur Colloid, 8 oz water and 2 slices of toast with jelly was administered orally to the patient. Images were obtained using a dual head gamma camera in the anterior and posterior projections over of the stomach immediately post ingestion and at hourly intervals up to 4 hours post ingestion. The anterior and posterior counts at each time interval were averaged using the geometric mean and expressed as percentage of the immediate post ingestion counts. FINDINGS: There is good visualization of activity in the stomach immediately post ingestion. As the study progresses, there is delayed clearance of activity from the stomach and delayed visualization of progressively increasing small bowel activity. By the end of the study, there is significant retention noted in the stomach. Retention in the stomach at each time interval was: 1 hour 55% (normal 37%-90%) 2 hours 46% (normal 30%-60%) 3 hours 30% 4 hours 17% (normal 0%-10%) CT/CT gastric emptying study IMPRESSION: Abnormal grade 1 delayed 4 hour gastric emptying study. (For solid meal, rapid gastric emptying is less than 30% at 60 minutes. Delayed gastric emptying criteria is more than 60% remaining at 120 minutes or more than 10% at 240 minutes. The 4-hour value is the best discriminator of a normal or abnormal result). Gastric emptying study grading per JNMT Consensus Recommendations in 2008 (https://tech.snmjournals.org/content/36/44) Grade 1 (mild retention): 11-20% at 4h Grade 2 (moderate retention): 21-35% at 4h Grade 3 (severe retention): 36-50% at 4h Grade 4 (very severe retention): >50% retention at 4h
== END ==
LOC: HO.NUCMED 07:45
PROVIDERS: PCP Pediatrics; Visit Provider Nurse Practitioner
DX: R68.81 Early satiety (principal)
CPT/HCPCS: 78264; A9541

== ENCOUNTER 2023-08-23 12:55 | Outpatient (AMB) | payer OTHER, SELFPAY ==
[2023-08-23 13:11] VITALS: BP 145/78; PULSE 82; BMI 35.8
--- NOTE | 2023-08-23 13:11 | MHC.OFFVIS ---
Intake Vital Signs 08/23/23 13:11 Height 5 ft 6 in Weight 222 lb BMI 35.8 BP 145/78 H Blood Pressure Location Lt brachial Position Sitting Pulse 82 Intake Visit Reasons: 6 months F/u Intake Note: 6 month Follow up Patient cc: nauseas, between diarrhea and constipation and some swallowing problems. Devulcanizer Tender Required: No Accompanied by: Self / Same As Patient Allergies lamotrigine [LAMOTRIGINE] Allergy (Unknown, Verified 08/23/23 13:07) SEVERE RASH sumatriptan [SUMATRIPTAN] Allergy (Unknown, Verified 08/23/23 13:07) SEVERE RASH adhesive tape Allergy (Unknown, Uncoded 12/14/21 10:37) Rash HPI 6 months F/u HPI Details Assessment & Plan (1) RUQ abdominal pain: Code(s): R10.11 - Right upper quadrant pain Plan: [place] #declines She continues to have pain in the RUQ that is worse with prolonged sitting. Diarrhea is lessening, but not the pain. GI panel neg. HIDA shows most likely pain is NOT from gallstones. She is a diabetic (unknown to me) and she is having early satiety, nausea, and poor appetite. She is also on Trulicity. I will get GES. She is on a lot of medications, so I will not treat until I have the test (multiple cardiac etc meds). Says she is on nortriptyline for my heart. (??). May consider CT going forward if no answers on the pain. Will get UA to see if any reason to suspect renal stones in pain syndrome. She is on bentyl bid for her esoph motility, and this has not effect on the pain (seems to lessen susp of bowel cramping). ROV 8 weeks. (2) Early satiety: Code(s): R68.81 - Early satiety (3) Gallstones: Code(s): K80.20 - Calculus of gallbladder without cholecystitis without obstruction (4) Acute diarrhea: Code(s): R19.7 - Diarrhea, unspecified (5) Dysphagia: Comment: Most likely esophageal spasm/dysmotility as it resolved with dicyclomine Code(s): R13.10 - Dysphagia, unspecified (6) GERD (gastroesophageal reflux disease): Code(s): K21.9 - Gastro-esophageal reflux disease without esophagitis (7) Abdominal bloating: Code(s): R14.0 - Abdominal distension (gaseous) (8) Diabetes: Code(s): E11.9 - Type 2 diabetes mellitus without complications Orders: Orders NM gastric emptying study 07/02/23 R68.81 - Early satiety UA CC w/rflx Micro + Cult 07/02/23 R10.11 - Right upper quadrant pain GASTRIC EMPTYING STUDY 08/01/23 ? IMPRESSION: Abnormal grade 1 delayed 4 hour gastric emptying study. (For solid meal, rapid gastric emptying is less than 30% at 60 minutes. Delayed gastric emptying criteria is more than 60% remaining at 120 minutes or more than 10% at 240 minutes. The 4-hour value is the best discriminator of a normal or abnormal result). Gastric emptying study grading per JNMT Consensus Recommendations in 2008 (https://tech.snmjournals.org/content/36/44) Grade 1 (mild retention): 11-20% at 4h Grade 2 (moderate retention): 21-35% at 4h Grade 3 (severe retention): 36-50% at 4h Grade 4 (very severe retention): >50% retention at 4h . TODAY'S VISIT [place] #declines She is so happy she wants to hug me! The reglan at 5mg solved her pain problems. She is having no s/e. Now she is only moving her bowels q3 days, at first the bisacodyl worked well not not now. We will progress to LInzess 145mcg and titrate. ROV 3 weeks. [facility] Medical History (Updated 09/20/23 @ 16:12 by BRIAN Castañeda) Early satiety Acute diarrhea Abnormal x-ray examination Constipation Constipation Surgical History Hx of endoscopy Hx of colonoscopy Hx of section Family History Mother Thyroid condition Asthma Heart problem Diabetes Migraines Sister Thyroid condition Asthma Diabetes Migraines Father Asthma Diabetes Migraines Brother Asthma Diabetes Migraines Heart problem Social History Household Members: Children Alcohol intake: current Alcohol intake frequency: does not drink Current occupational status: disabled Review of Systems Const Denies fatigue, Denies fever(s), Denies night sweats, Denies poor appetite and Denies weight loss ENT Reports Normal hearing present, Denies dental pain, Reports dysphagia, Denies hearing loss, Denies mouth pain, Denies odynophagia, Denies throat swelling, Denies tongue swelling and Reports other (Dentition adequate) Card Reports no additional complaints Resp Reports no additional complaints GI Denies abdominal pain, Denies melena, Reports bloating, Denies hematochezia, Reports constipation, Denies GI cramping, Reports dysphagia, Denies excessive flatus, Reports early satiety, Reports heartburn, Denies diarrhea, Denies nausea, Denies odynophagia, Denies vomiting and Denies hematemesis Skin/Breast Denies pruritus, Denies lesions, Denies rash and Denies jaundice Neuro Reports Normal hearing present and Denies Abnormal speech present Endo Denies fatigue Aller/Immun Denies throat swelling and Denies tongue swelling Physical Exam Vital Signs: Last Vital Signs Pulse 82 08/23/23 13:11 BP 145/78 H 08/23/23 13:11 BMI result Body Mass Index 35.8 Const General: cooperative, no acute distress, well developed and well groomed Nutritional Appearance: well nourished and obese Orientation/consciousness: oriented to person, oriented to place and oriented to time Limitations: No language barrier HEENT Head: Yes normocephalic and Yes atraumatic Eyes General: appearance normal, both eyes and all related structures Pupils: Equal, round and reactive pupils present Neck Neck: Yes normal visual inspection and Yes no lymphadenopathy Thyroid: Thyroid normal Resp Effort & Inspection: normal respiratory effort and able to speak in complete sentences Auscultation: clear to auscultation bilaterally Cardio Rate: regular rate Rhythm: regular rhythm Heart sounds: Normal, physiologic split S2 sound present Peripheral pulses: radial pulses present and posterior tibial pulses present GI Inspection: No distended, Yes Abdominal panniculus present and Yes obesity Palpation (GI): Soft to palpation, nontender, no guarding, not rigid and No hepatosplenomegaly present Percussion: Yes normal to percussion Auscultation: normal bowel sounds Rectal Exam - Female: deferred Skin General skin exam: no rashes or lesions noted, turgor normal, skin not dry, no jaundice, No spider nevi and no striae Rashes: no rashes Nails: normal Neuro General: oriented to person, oriented to place and oriented to time Cranial nerves: Yes Equal, round and reactive pupils present and Yes Normal hearing present Speech: No Abnormal speech present Extrem General: Yes normal to inspection, No clubbing, No cyanosis and No edema Psych Appearance: grossly normal and well kempt Mental Status: mental status grossly normal Speech and movement: Normal speech and movement present Affect: normal affect Attitude: cooperative Thought process: Normal thought process present and not confabulating Thought content: Normal thought content present Insight: Limited insight present (Psych) Judgement: Limited judgement present (Psych) Assessment & Plan Assessment & Plan (1) Gastroparesis: Comment: 2022 GES=mild but significant delay Code(s): K31.84 - Gastroparesis Plan: [place] #declines She is so happy she wants to hug me! The reglan at 5mg solved her pain problems. She is having no s/e. Now she is only moving her bowels q3 days, at first the bisacodyl worked well not not now. We will progress to LInzess 145mcg and titrate. ROV 3 weeks. . (2) Chronic idiopathic constipation: Code(s): K59.04 - Chronic idiopathic constipation (3) RUQ abdominal pain: Code(s): R10.11 - Right upper quadrant pain (4) Dysphagia: Comment: Most likely esophageal spasm/dysmotility as it resolved with dicyclomine Code(s): R13.10 - Dysphagia, unspecified (5) Esophageal spasm: Code(s): K22.4 - Dyskinesia of esophagus (6) GERD (gastroesophageal reflux disease): Code(s): K21.9 - Gastro-esophageal reflux disease without esophagitis (7) Constipation: Code(s): K59.00 - Constipation, unspecified (8) Gallstones: Comment: 2022- HIDA scan Code(s): K80.20 - Calculus of gallbladder without cholecystitis without obstruction Plan [place] #declines She is so happy she wants to hug me! The reglan at 5mg solved her pain problems. She is having no s/e. Now she is only moving her bowels q3 days, at first the bisacodyl worked well not not now. We will progress to LInzess 145mcg and titrate. She continues on her dicyclomine for esophageal spasm and is also on diltiazem. Her pantoprazole twice a day is controlling her GERD well along with her simethicone. ROV 3 weeks. Medications: New linaclotide (Linzess) 145 mcg PO QAM 30 caps 6RF K59.04 - Chronic idiopathic constipation Refilled dicyclomine 20 mg (2 x 10 mg) PO QID 240 caps 6RF 30 days K22.4 - Dyskinesia of esophagus, R13.10 - Dysphagia, unspecified metoclopramide HCl (Reglan) provider aware of possible interaction with citalopram and is monitoring 5 mg PO QIDACHS 120 tabs 6RF K31.84 - Gastroparesis docusate sodium 100 mg PO BID 60 caps 6RF K59.00 - Constipation, unspecified bisacodyl (Dulcolax (bisacodyl)) 10 mg (2 x 5 mg) PO BEDTIME 60 tabs 6RF 30 days K59.00 - Constipation, unspecified pantoprazole 40 mg PO BID 60 tabs 6RF K21.9 - Gastro-esophageal reflux disease without esophagitis Coding Level of Care Code Est Pt Level 3 (47085) Diagnoses Gastroparesis K31.84 Chronic idiopathic constipation K59.04 RUQ abdominal pain R10.11 Dysphagia R13.10 Esophageal spasm K22.4 GERD (gastroesophageal reflux disease) K21.9 Constipation K59.00 Gallstones K80.20
== END 2023-08-23 14:20 | disposition home or self-care (01) ==
PROVIDERS: Visit Provider Nurse Practitioner
DX: K31.84 Gastroparesis (principal); K59.04 Chronic idiopathic constipation; R10.11 Right upper quadrant pain; R13.10 Dysphagia, unspecified; K22.4 Dyskinesia of esophagus; K21.9 Gastro-esophageal reflux disease without esophagitis; K59.00 Constipation, unspecified; K80.20 Calculus of gallbladder without cholecystitis without obstruction
CPT/HCPCS: 99213

== ENCOUNTER → 2023-08-23 12:55 | Outpatient (BNVA) | payer OTHER, SELFPAY | PROVIDERS: Visit Provider Nurse Practitioner | DX: K59.04 Chronic idiopathic constipation (principal); K31.84 Gastroparesis; K80.20 Calculus of gallbladder without cholecystitis without obstruction; R10.11 Right upper quadrant pain; R13.10 Dysphagia, unspecified; K22.4 Dyskinesia of esophagus; K21.9 Gastro-esophageal reflux disease without esophagitis | CPT/HCPCS: 99212 ==

== ENCOUNTER 2023-09-20 15:05 | Outpatient (AMB) | payer OTHER, SELFPAY ==
[2023-09-20 15:08] VITALS: BP 122/68; PULSE 81; BMI 36.4
--- NOTE | 2023-09-20 15:08 | MHC.OFFVIS ---
Intake Vital Signs 09/20/23 15:08 Height 5 ft 6 in Weight 225 lb 4.999 oz BMI 36.4 BP 122/68 Blood Pressure Location Lt brachial Position Sitting Pulse 81 Intake Visit Reasons: Follow up GERD Intake Note: Patient returns to in office visit today in medication follow up. CC: Patient placed in Linzess at her last visit, reports the medication is a bomb and it's helping her with constipation. She states she continues to have trouble swallowing and was found to have and esophageal hernia. 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 Diarrhea is lessening, but not the pain. GI panel neg. HIDA shows most likely pain is NOT from gallstones. She is a diabetic (unknown to me) and she is having early satiety, nausea, and poor appetite. She is also on Trulicity. I will get GES. She is on a lot of medications, so I will not treat until I have the test (multiple cardiac etc meds). Says she is on nortriptyline for my heart. (??). May consider CT going forward if no answers on the pain. Will get UA to see if any reason to suspect renal stones in pain syndrome. She is on bentyl bid for her esoph motility, and this has not effect on the pain (seems to lessen susp of bowel cramping). ROV 8 weeks. (2) Early satiety: Code(s): R68.81 - Early satiety (3) Gallstones: Code(s): K80.20 - Calculus of gallbladder without cholecystitis without obstruction (4) Acute diarrhea: Code(s): R19.7 - Diarrhea, unspecified (5) Dysphagia: Comment: Most likely esophageal spasm/dysmotility as it resolved with dicyclomine Code(s): R13.10 - Dysphagia, unspecified (6) GERD (gastroesophageal reflux disease): Code(s): K21.9 - Gastro-esophageal reflux disease without esophagitis (7) Abdominal bloating: Code(s): R14.0 - Abdominal distension (gaseous) (8) Diabetes: Code(s): E11.9 - Type 2 diabetes mellitus without complications Orders: Orders NM gastric emptying study 07/02/23 R68.81 - Early satiety UA CC w/rflx Micro + Cult 07/02/23 R10.11 - Right upper quadrant pain GASTRIC EMPTYING STUDY 08/01/23 ? IMPRESSION: Abnormal grade 1 delayed 4 hour gastric emptying study. (For solid meal, rapid gastric emptying is less than 30% at 60 minutes. Delayed gastric emptying criteria is more than 60% remaining at 120 minutes or more than 10% at 240 minutes. The 4-hour value is the best discriminator of a normal or abnormal result). Gastric emptying study grading per JNMT Consensus Recommendations in 2008 (https://tech.snmjournals.org/content/36/44) Grade 1 (mild retention): 11-20% at 4h Grade 2 (moderate retention): 21-35% at 4h Grade 3 (severe retention): 36-50% at 4h Grade 4 (very severe retention): >50% retention at 4h . TODAY'S VISIT [place]ian #declines She is doing very well with the reglan!! No more abd pain, eating well, no more diarrhea but some soft stools at times. She is very happy with this and we will continue. She continues on her dicyclomine which is for her esophageal dysmotility and her swallowing has been good. She has gallstones but had a prior HIDA scan that was negative and she is asymptomatic for this. She continues on pantoprazole twice a day and simethicone with good control of her GERD.. She has occasional constipation that is treated well with Colace. ROV 6 mos. [facility] Medical History (Updated 09/20/23 @ 16:12 by BRIAN Castañeda) Early satiety Acute diarrhea Abnormal x-ray examination Constipation Constipation Surgical History Hx of endoscopy Hx of colonoscopy Hx of section Family History Mother Thyroid condition Asthma Heart problem Diabetes Migraines Sister Thyroid condition Asthma Diabetes Migraines Father Asthma Diabetes Migraines Brother Asthma Diabetes Migraines Heart problem Social History Household Members: Children Alcohol intake: current Alcohol intake frequency: does not drink Current occupational status: disabled Review of Systems Const Denies fatigue, Denies fever(s), Denies night sweats, Denies poor appetite and Denies weight loss ENT Reports Normal hearing present, Denies dental pain, Denies dysphagia, Denies hearing loss, Denies mouth pain, Denies odynophagia, Denies throat swelling, Denies tongue swelling and Reports other (Dentition adequate) Card Reports no additional complaints Resp Reports no additional complaints GI Denies abdominal pain, Denies melena, Denies bloating, Denies hematochezia, Denies constipation, Denies GI cramping, Denies dysphagia, Denies excessive flatus, Reports early satiety, Reports heartburn, Denies diarrhea, Denies nausea, Denies odynophagia, Denies vomiting and Denies hematemesis Skin/Breast Denies pruritus, Denies lesions, Denies rash and Denies jaundice Neuro Reports Normal hearing present and Denies Abnormal speech present Endo Denies fatigue Aller/Immun Denies throat swelling and Denies tongue swelling Physical Exam Vital Signs: Last Vital Signs Pulse 81 09/20/23 15:08 BP 122/68 09/20/23 15:08 BMI result Body Mass Index 36.4 Const General: cooperative, no acute distress, well developed and well groomed Nutritional Appearance: well nourished and obese morbidly obese Orientation/consciousness: oriented to person, oriented to place and oriented to time Limitations: No language barrier HEENT Head: Yes normocephalic and Yes atraumatic Eyes General: appearance normal, both eyes and all related structures Pupils: Equal, round and reactive pupils present Neck Neck: Yes normal visual inspection and Yes no lymphadenopathy Thyroid: Thyroid normal Resp Effort & Inspection: normal respiratory effort and able to speak in complete sentences Auscultation: clear to auscultation bilaterally Cardio Rate: regular rate Rhythm: regular rhythm Heart sounds: Normal, physiologic split S2 sound present Peripheral pulses: radial pulses present and posterior tibial pulses present GI Inspection: No distended, No Abdominal panniculus present and Yes obesity Palpation (GI): Soft to palpation, nontender, no guarding, not rigid and No hepatosplenomegaly present Percussion: Yes normal to percussion Auscultation: normal bowel sounds Rectal Exam - Female: deferred Skin General skin exam: no rashes or lesions noted, turgor normal, skin not dry, no jaundice, No spider nevi and no striae Rashes: no rashes Nails: normal Neuro General: oriented to person, oriented to place and oriented to time Cranial nerves: Yes Equal, round and reactive pupils present and Yes Normal hearing present Speech: No Abnormal speech present Extrem General: Yes normal to inspection, No clubbing, No cyanosis and No edema Psych Appearance: grossly normal and well kempt Mental Status: mental status grossly normal Speech and movement: Normal speech and movement present Affect: normal affect Attitude: cooperative Thought process: Normal thought process present and not confabulating Thought content: Normal thought content present Insight: Limited insight present (Psych) Judgement: Limited judgement present (Psych) Assessment & Plan Assessment & Plan (1) Gastroparesis: Comment: 2022 GES=mild but significant delay Code(s): K31.84 - Gastroparesis (2) Chronic idiopathic constipation: Code(s): K59.04 - Chronic idiopathic constipation (3) Gallstones: Comment: 2022- HIDA scan Code(s): K80.20 - Calculus of gallbladder without cholecystitis without obstruction (4) Dysphagia: Comment: Most likely esophageal spasm/dysmotility as it resolved with dicyclomine Code(s): R13.10 - Dysphagia, unspecified (5) GERD (gastroesophageal reflux disease): Code(s): K21.9 - Gastro-esophageal reflux disease without esophagitis Plan [place]ian #declines She is doing very well with the reglan!! No more abd pain, eating well, no more diarrhea but some soft stools at times. She is very happy with this and we will continue. She continues on her dicyclomine which is for her esophageal dysmotility and her swallowing has been good. She has gallstones but had a prior HIDA scan that was negative and she is asymptomatic for this. She continues on pantoprazole twice a day and simethicone with good control of her GERD.. She has occasional constipation that is treated well with Colace. ROV 6 mos. Medications: Refilled dicyclomine 20 mg (2 x 10 mg) PO QID 240 caps 6RF 30 days K22.4 - Dyskinesia of esophagus, R13.10 - Dysphagia, unspecified metoclopramide HCl (Reglan) provider aware of possible interaction with citalopram and is monitoring 5 mg PO QIDACHS 120 tabs 6RF K31.84 - Gastroparesis pantoprazole 40 mg PO BID 60 tabs 6RF K21.9 - Gastro-esophageal reflux disease without esophagitis simethicone 180 mg PO QID 120 caps 6RF R14.0 - Abdominal distension (gaseous) docusate sodium 100 mg PO BID 60 caps 6RF K59.00 - Constipation, unspecified linaclotide (Linzess) 145 mcg PO QAM 30 caps 6RF K59.04 - Chronic idiopathic constipation Coding Level of Care Code Est Pt Level 3 (64247) Diagnoses Gastroparesis K31.84 Chronic idiopathic constipation K59.04 Gallstones K80.20 Dysphagia R13.10 GERD (gastroesophageal reflux disease) K21.9
== END 2023-09-20 15:28 | disposition home or self-care (01) ==
PROVIDERS: PCP Pediatrics; Visit Provider Nurse Practitioner
DX: K31.84 Gastroparesis (principal); K59.04 Chronic idiopathic constipation; K80.20 Calculus of gallbladder without cholecystitis without obstruction; R13.10 Dysphagia, unspecified; K21.9 Gastro-esophageal reflux disease without esophagitis
CPT/HCPCS: 99213

== ENCOUNTER → 2023-09-20 15:05 | Outpatient (BNVA) | payer OTHER, SELFPAY | PROVIDERS: PCP Pediatrics; Visit Provider Nurse Practitioner | DX: K31.84 Gastroparesis (principal); K59.04 Chronic idiopathic constipation; K80.20 Calculus of gallbladder without cholecystitis without obstruction; K21.9 Gastro-esophageal reflux disease without esophagitis; R13.10 Dysphagia, unspecified | CPT/HCPCS: 99212 ==

== ENCOUNTER 2023-11-25 09:09 | Outpatient (REF) | payer OTHER, SELFPAY ==
--- NOTE | ~2023-11-25 | XR_ITS ---
EXAMINATION: XR LUMBOSACRAL SPINE CLINICAL INFORMATION: Chronic right hip pain COMPARISON: Lumbar spine 02/26/2023 TECHNIQUE: Three views of the lumbosacral spine. FINDINGS: There 5 nonrib-bearing lumbar-type vertebral bodies. The height of vertebral bodies is well-maintained. There is mild disc space narrowing with marginal osteophyte formation at L2-L3. There is mild retrolisthesis of L3 with respect to L4. There is mild degenerative facet joint disease at L5-S1. The sacroiliac joints are symmetrical and normal. The paravertebral soft tissues are normal. XR/XR lumbar spine 2-3V IMPRESSION: 1. Degenerative disc disease at L2-L3. 2. Mild retrolisthesis of L3 with respect to L4. 3. Mild degenerative facet joint disease L5-S1.
--- NOTE | ~2023-11-25 | XR_ITS ---
EXAMINATION: XR HIP, RIGHT CLINICAL INFORMATION: Right hip and low back pain COMPARISON: None available. TECHNIQUE: Two views of the right hip. FINDINGS: No fracture. Alignment is anatomic. Hip joint space is maintained. Soft tissues are unremarkable. XR/XR hip RT min 2V IMPRESSION: No bony abnormality of the right hip.
== END 2023-11-25 09:10 | disposition home or self-care (01) ==
LOC: HO.XRAY 09:09
PROVIDERS: PCP Pediatrics; Visit Provider Pediatrics
DX: M25.551 Pain in right hip (principal); M54.50 Low back pain, unspecified
CPT/HCPCS: 72100; 73502

== ENCOUNTER 2024-02-26 11:22 | Outpatient (REF) | payer OTHER, SELFPAY ==
[2024-02-26 14:53] LABS: MANUAL DIFF FLAG NO
[2024-02-26 14:56] LABS: Basophils Percent Auto 0.3 % (0-2); Eosinophils Absolute Auto 0.2 X10*3/uL (0.0-0.4); Eosinophils Percent Auto 2.5 % (0-4); Hematocrit 35.4 % (37.0-47.0); Hemoglobin 11.9 g/dl (12.0-16.0); Imm Gran Abs Auto 0.02 X10*3/uL (0.00-0.03); Imm Gran Pct Auto 0.3 % (0.0-0.4); Lymphocytes Absolute Auto 1.9 X10*3/uL (1.2-4.9); Lymphocytes Percent Auto 28.9 % (20-40); Mean Corpuscular HGB Conc 33.6 g/dl (31.0-35.0); Mean Corpuscular Hemoglobin 30.4 pg (27.0-33.0); Mean Corpuscular Volume 90.3 fL (80.0-98.0); Mean Platelet Volume 11.2 fL (9.4-12.3); Monocytes Absolute Auto 0.5 X10*3/uL (0.1-1.2); Monocytes Percent Auto 7.2 % (2-11); Neutrophils Absolute Auto 3.9 x10*3/uL (2.0-8.3); Neutrophils Percent Auto 60.8 % (45-73); Platelet Count 239 X10*3/uL (160-400); Red Blood Count 3.92 X10*6/uL (4.20-5.50); Red Cell Distribution Width 13.2 % (11.0-16.0); White Blood Count 6.4 X10*3/uL (4.8-10.8)
[2024-02-26 14:57] LABS: Appearance Urine Clear; Color Urine Dark Yellow; Glucose Urine UA 250 mg/dL (Negative); Leukocyte Esterase Urine Negative (Negative); Nitrite Urine Negative (Negative); PH 5.5 (5.0-9.0); Specific Gravity - Urine 1.025 (1.005-1.025); UMIC TRIGGER UACC YES; Urine Blood Negative (Negative); Urine Ketones Trace mg/dL (Negative); Urine Protein 30 (1+) mg/dL (Neg-Trace)
[2024-02-26 15:04] LABS: Bacteria Urine None Seen (None Seen); RBC Urine 0-2 /HPF (0-2); WBC Urine 0-5 /HPF (0-5)
[2024-02-26 17:01] LABS: Alanine Aminotransferase 30 U/L (0-31); Albumin Level 3.8 g/dL (3.5-5.0); Alkaline Phosphatase 102 U/L (39-117); Anion Gap 12 (12-20); Aspartate Amino Transferase 25 U/L (5-31); Bilirubin Direct 0.2 mg/dL (0.0-0.5); Bilirubin Total 0.4 mg/dL (0.0-1.0); Blood Urea Nitrogen 18 mg/dL (9-16); Calcium 9.3 mg/dL (8.4-10.2); Carbon Dioxide 30 mmol/L (22-29); Chloride 101 mmol/L (96-108); Cholesterol 151 mg/dL (<200); Estimated Glomerular Filt Rate 49; Glucose Random 250 mg/dL (60-115); HDL Cholesterol 40 mg/dL (>40); LDL Cholesterol Calculated 78 mg/dL (<100); Potassium 3.8 mmol/L (3.3-5.1); Sodium 139 mmol/L (135-145); Total Protein 6.5 g/dL (6.5-8.0); Triglycerides 166 mg/dL (<150)
[2024-02-26 17:18] LABS: Creatinine Urine 309.93 mg/dL; Microalbum/Creatinine Ratio Ur 15.8 ug/mg cr (<30)
== END 2024-02-26 11:23 | disposition home or self-care (01) ==
LOC: HO.CHCLDS 11:22
PROVIDERS: Visit Provider Pediatrics
DX: E11.9 Type 2 diabetes mellitus without complications (principal); I10 Essential (primary) hypertension; I42.0 Dilated cardiomyopathy; G47.33 Obstructive sleep apnea (adult) (pediatric); Z95.0 Presence of cardiac pacemaker
CPT/HCPCS: 36415; 80048; 80061; 80076; 81001; 82043; 82306; 82570; 84443; 85025

== ENCOUNTER 2024-04-09 11:45 | Outpatient (AMB) | payer OTHER, SELFPAY ==
--- NOTE | 2024-04-09 11:49 | A.OFFVIS_ITS ---
Vital Signs 04/09/24 11:51 Height 5 ft 6 in Weight 212 lb 15.465 oz BMI 34.4 BP 107/55 L Blood Pressure Location Rt brachial Position Sitting Pulse 80 Intake Visit Reasons: 6 months follow up Intake Note: Patient returns to in office visit today in 6 months follow up . CC: Patient reports feeling better and denies having any new GI symptoms. Retail Manager In Training Required: No Retail Manager In Training Name: Patient declined call box wirer. Accompanied by: Self / Same As Patient Allergies lamotrigine [LAMOTRIGINE] Allergy (Unknown, Verified 08/23/23 13:07) SEVERE RASH sumatriptan [SUMATRIPTAN] Allergy (Unknown, Verified 08/23/23 13:07) SEVERE RASH adhesive tape Allergy (Unknown, Uncoded 12/14/21 10:37) Rash HPI HPI 6 months follow up: Details: Assessment & Plan (1) Gastroparesis: Comment: 2022 GES=mild but significant delay Code(s): K31.84 - Gastroparesis (2) Chronic idiopathic constipation: Code(s): K59.04 - Chronic idiopathic constipation (3) Gallstones: Comment: 2022- HIDA scan Code(s): K80.20 - Calculus of gallbladder without cholecystitis without obstruction (4) Dysphagia: Comment: Most likely esophageal spasm/dysmotility as it resolved with dicyclomine Code(s): R13.10 - Dysphagia, unspecified (5) GERD (gastroesophageal reflux disease): Code(s): K21.9 - Gastro-esophageal reflux disease without esophagitis Plan [place]ian #declines She is doing very well with the reglan!! No more abd pain, eating well, no more diarrhea but some soft stools at times. She is very happy with this and we will continue. She continues on her dicyclomine which is for her esophageal dysmotility and her swallowing has been good. She has gallstones but had a prior HIDA scan that was negative and she is asymptomatic for this. She continues on pantoprazole twice a day and simethicone with good control of her GERD.. She has occasional constipation that is treated well with Colace. ROV 6 mos. Medications: Refilled dicyclomine 20 mg (2 x 10 mg) PO QID 240 caps 6RF 30 days K22.4 - Dyskinesia of esophagus, R13.10 - Dysphagia, unspecified metoclopramide HCl (Reglan) provider aware of possible interaction with citalopram and is monitoring 5 mg PO QIDACHS 120 tabs 6RF K31.84 - Gastroparesis pantoprazole 40 mg PO BID 60 tabs 6RF K21.9 - Gastro-esophageal reflux disease without esophagitis simethicone 180 mg PO QID 120 caps 6RF R14.0 - Abdominal distension (gaseous) docusate sodium 100 mg PO BID 60 caps 6RF K59.00 - Constipation, unspecified linaclotide (Linzess) 145 mcg PO QAM 30 caps 6RF K59.04 - Chronic idiopathic constipati . TODAY'S VISIT Jordanian #declines She continues to do well. She continues on her pantoprazole twice a day, Linzess 145 micro g, Colace, simethicone, dicyclomine, and Reglan 5 mg 4 times a day. She remains satisfied with her GI regimen. Return office visit in 6 months [facility] Medical History (Updated 09/20/23 @ 16:12 by BRIAN Castañeda) Early satiety Acute diarrhea Abnormal x-ray examination Constipation Constipation Surgical History Hx of endoscopy Hx of colonoscopy Hx of section Family History Mother Thyroid condition Asthma Heart problem Diabetes Migraines Sister Thyroid condition Asthma Diabetes Migraines Father Asthma Diabetes Migraines Brother Asthma Diabetes Migraines Heart problem Social History Household Members: Children Alcohol intake: current Alcohol intake frequency: does not drink Current occupational status: disabled Review of Systems Const Denies fatigue, Denies fever(s), Denies night sweats, Denies poor appetite and Denies weight loss ENT Reports Normal hearing present, Denies dental pain, Denies dysphagia, Denies hearing loss, Denies mouth pain, Denies odynophagia, Denies throat swelling, Denies tongue swelling and Reports other (Dentition adequate) Card Reports no additional complaints Resp Reports no additional complaints GI Details: Denies abdominal pain, Denies melena, Denies bloating, Denies hematochezia, Reports constipation, Denies GI cramping, Denies dysphagia, Denies excessive flatus, Reports early satiety, Reports heartburn, Denies diarrhea, Denies nausea, Denies odynophagia, Denies vomiting and Denies hematemesis Skin/Breast Denies pruritus, Denies lesions, Denies rash and Denies jaundice Neuro Reports Normal hearing present and Denies Abnormal speech present Endo Denies fatigue Aller/Immun Denies throat swelling and Denies tongue swelling Physical Exam Vital Signs: Last Vital Signs Pulse 80 04/09/24 11:51 BP 107/55 L 04/09/24 11:51 BMI result Body Mass Index 34.4 Const General: cooperative, no acute distress, well developed and well groomed Nutritional Appearance: well nourished and obese Orientation/consciousness: oriented to person, oriented to place and oriented to time Limitations: No language barrier HEENT Head: Yes normocephalic and Yes atraumatic Eyes General: appearance normal, both eyes and all related structures Pupils: Equal, round and reactive pupils present Neck Neck: Yes normal visual inspection and Yes no lymphadenopathy Thyroid: Thyroid normal Resp Effort & Inspection: normal respiratory effort and able to speak in complete sentences Auscultation: clear to auscultation bilaterally Cardio Rate: regular rate Rhythm: regular rhythm Heart sounds: Normal, physiologic split S2 sound present Peripheral pulses: radial pulses present and posterior tibial pulses present GI Inspection: No distended, No Abdominal panniculus present and Yes obesity Palpation (GI): Soft to palpation, nontender, no guarding, not rigid and No hepatosplenomegaly present Percussion: Yes normal to percussion Auscultation: normal bowel sounds Rectal Exam - Female: deferred Skin General skin exam: no rashes or lesions noted, turgor normal, skin not dry, no jaundice, No spider nevi and no striae Rashes: no rashes Nails: normal Neuro General: oriented to person, oriented to place and oriented to time Cranial nerves: Yes Equal, round and reactive pupils present and Yes Normal hearing present Speech: No Abnormal speech present Extrem General: Yes normal to inspection, No clubbing, No cyanosis and No edema Psych Appearance: grossly normal and well kempt Mental Status: mental status grossly normal Speech and movement: Normal speech and movement present Affect: normal affect Attitude: cooperative Thought process: Normal thought process present and not confabulating Thought content: Normal thought content present Insight: Fair insight present (Psych) Judgement: Fair judgement present (Psych) Assessment & Plan Assessment & Plan (1) Gastroparesis: Comment: 2022 GES=mild but significant delay Code(s): K31.84 - Gastroparesis Category: Medical (2) Chronic idiopathic constipation: Code(s): K59.04 - Chronic idiopathic constipation Category: Medical (3) Gallstones: Comment: 2022- HIDA scan Code(s): K80.20 - Calculus of gallbladder without cholecystitis without obstruction Category: Medical (4) GERD (gastroesophageal reflux disease): Code(s): K21.9 - Gastro-esophageal reflux disease without esophagitis Category: Medical (5) Esophageal spasm: Code(s): K22.4 - Dyskinesia of esophagus Category: Medical (6) Dysphagia: Comment: Most likely esophageal spasm/dysmotility as it resolved with dicyclomine Code(s): R13.10 - Dysphagia, unspecified Category: Medical Plan Jordanian #declines She continues to do well. She continues on her pantoprazole twice a day, Linzess 145 micro g, Colace, simethicone, dicyclomine, and Reglan 5 mg 4 times a day. She remains satisfied with her GI regimen. Return office visit in 6 months Medications: Refilled simethicone 180 mg PO QID 120 caps 6RF R14.0 - Abdominal distension (gaseous) metoclopramide HCl (Reglan) provider aware of possible interaction with citalopram and is monitoring 5 mg PO QIDACHS 120 tabs 6RF K31.84 - Gastroparesis dicyclomine 20 mg (2 x 10 mg) PO QID 240 caps 6RF 30 days K22.4 - Dyskinesia of esophagus, R13.10 - Dysphagia, unspecified pantoprazole 40 mg PO BID 60 tabs 6RF K21.9 - Gastro-esophageal reflux disease without esophagitis linaclotide (Linzess) 145 mcg PO QAM 30 caps 6RF K59.04 - Chronic idiopathic constipation bisacodyl 10 mg (2 x 5 mg) PO BEDTIME 60 tabs 6RF K59.00 - Constipation, unspecified Coding Level of Care Code Est Pt Level 3 (69515) Diagnoses Gastroparesis K31.84 Chronic idiopathic constipation K59.04 Gallstones K80.20 GERD (gastroesophageal reflux disease) K21.9 Esophageal spasm K22.4 Dysphagia R13.10
[2024-04-09 11:51] VITALS: BP 107/55; PULSE 80; BMI 34.4
== END 2024-04-09 12:12 | disposition home or self-care (01) ==
PROVIDERS: PCP Pediatrics; Visit Provider Nurse Practitioner
DX: K31.84 Gastroparesis (principal); K59.04 Chronic idiopathic constipation; K80.20 Calculus of gallbladder without cholecystitis without obstruction; K21.9 Gastro-esophageal reflux disease without esophagitis; K22.4 Dyskinesia of esophagus; R13.10 Dysphagia, unspecified
CPT/HCPCS: 99213

== ENCOUNTER → 2024-04-09 11:45 | Outpatient (BNVA) | payer OTHER, SELFPAY | PROVIDERS: PCP Pediatrics; Visit Provider Nurse Practitioner | DX: K31.84 Gastroparesis (principal); K59.04 Chronic idiopathic constipation; K80.20 Calculus of gallbladder without cholecystitis without obstruction; K21.9 Gastro-esophageal reflux disease without esophagitis; K22.4 Dyskinesia of esophagus; R13.10 Dysphagia, unspecified | CPT/HCPCS: 99212 ==

== ENCOUNTER 2024-04-15 18:33 | Outpatient (REF) | payer OTHER, SELFPAY ==
[2024-04-20 10:48] LABS: Alphahydroxymidazolam,GCMS Ur NEGATIVE; Alphahydroxytriazolam, GCMS Ur NEGATIVE; Alprazolam, GCMS Urine NEGATIVE; Aminoclonazepam, GCMS Urine NEGATIVE; Flurazepam Metabolite,GCMS Ur NEGATIVE; Lorazepam GCMS Urine NEGATIVE; Nordiazepam, GCMS Urine NEGATIVE; Oxazepam, GCMS Urine NEGATIVE; Temazepam, GCMS Urine NEGATIVE
== END 2024-04-15 18:34 | disposition home or self-care (01) ==
LOC: HO.HHCLNP 18:33
PROVIDERS: Visit Provider Pediatrics
DX: F41.9 Anxiety disorder, unspecified (principal)
CPT/HCPCS: 80346

== ENCOUNTER 2024-09-25 11:54 | Outpatient (REF) | payer OTHER, SELFPAY ==
--- NOTE | ~2024-09-25 | MM_ITS ---
EXAMINATION: MM SCREENING DIGITAL BREAST TOMOSYNTHESIS, BILATERAL CLINICAL INFORMATION: Screening. Asymptomatic. COMPARISON: Mammography: Comparison is made with available priors TECHNIQUE: Digital breast mammography with tomosynthesis is performed in both the craniocaudal and mediolateral oblique views along with computer-aided detection (CAD). FINDINGS: There are scattered areas of fibroglandular density (ACR BI-RADS breast composition Category b). Pacemaker overlies and obscures the superior posterior left breast on MLO view. There are no significant masses, abnormal calcifications, or other abnormalities. MM/MM tomosynthesis screening BI IMPRESSION: No mammographic evidence of malignancy. ASSESSMENT: BI-RADS BI-RADS 2 - Benign Findings RECOMMENDATION: Routine annual mammography screening. 1 year F/U This examination should not preclude the clinical evaluation of a suspicious palpable abnormality. This patient's information was entered into a reminder system with a target due date for their next mammogram. Electronically signed by: María Smalls DO 10/06/2024 12:47 PM JAMIE
== END 2024-09-25 11:55 | disposition home or self-care (01) ==
LOC: HO.MAMMO 11:54
PROVIDERS: PCP Pediatrics; Visit Provider Pediatrics
DX: Z12.31 Encounter for screening mammogram for malignant neoplasm of breast (principal)
CPT/HCPCS: 77063; 77067

== ENCOUNTER → 2024-09-25 12:30 | Outpatient (BNV) | payer OTHER, SELFPAY | PROVIDERS: PCP Pediatrics; Visit Provider Internal Medicine | DX: Z12.31 Encounter for screening mammogram for malignant neoplasm of breast (principal) | CPT/HCPCS: 77063; 77067 ==

== ENCOUNTER 2025-02-04 11:26 | Outpatient (AMB) | payer OTHER, SELFPAY ==
--- NOTE | 2025-02-04 11:30 | A.OFFVIS_ITS ---
Vital Signs 02/04/25 11:38 Height 5 ft 6 in Weight 201 lb 15.095 oz BMI 32.6 BP 118/76 Blood Pressure Location Rt brachial Position Sitting Pulse 80 Intake Visit Reasons: F/u CIC Intake Note: Patient in office today in follow up of CIC. CC: The patient reports not having appetite and having diarrhea the day after taking Mounjaro. Machine Feller Required: No Machine Feller Services: Machine Feller Offered & Declined Accompanied by: Self / Same As Patient Allergies lamotrigine [LAMOTRIGINE] Allergy (Unknown, Verified 08/23/23 13:07) SEVERE RASH sumatriptan [SUMATRIPTAN] Allergy (Unknown, Verified 08/23/23 13:07) SEVERE RASH adhesive tape Allergy (Unknown, Uncoded 12/14/21 10:37) Rash HPI HPI F/u CIC: Details: Assessment & Plan (1) Gastroparesis: Comment: 2022 GES=mild but significant delay Code(s): K31.84 - Gastroparesis Category: Medical (2) Chronic idiopathic constipation: Code(s): K59.04 - Chronic idiopathic constipation Category: Medical (3) Gallstones: Comment: 2022- HIDA scan Code(s): K80.20 - Calculus of gallbladder without cholecystitis without obstruction Category: Medical (4) GERD (gastroesophageal reflux disease): Code(s): K21.9 - Gastro-esophageal reflux disease without esophagitis Category: Medical (5) Esophageal spasm: Code(s): K22.4 - Dyskinesia of esophagus Category: Medical (6) Dysphagia: Comment: Most likely esophageal spasm/dysmotility as it resolved with dicyclomine Code(s): R13.10 - Dysphagia, unspecified Category: Medical Plan [place] Islander #declines She continues to do well. She continues on her pantoprazole twice a day, Linz ess 145 micro g, Colace, simethicone, dicyclomine, and Reglan 5 mg 4 times a day. She remains satisfied with her GI regimen. Return office visit in 6 months Medications: Refilled simethicone 180 mg PO QID 120 caps 6RF R14.0 - Abdominal distension (gaseous) metoclopramide HCl (Reglan) provider aware of possible interaction with citalopram and is monitoring 5 mg PO QIDACHS 120 tabs 6RF K31.84 - Gastroparesis dicyclomine 20 mg (2 x 10 mg) PO QID 240 caps 6RF 30 days K22.4 - Dyskinesia of esophagus, R13.10 - Dysphagia, unspecified pantoprazole 40 mg PO BID 60 tabs 6RF K21.9 - Gastro-esophageal reflux disease without esophagitis linaclotide (Linzess) 145 mcg PO QAM 30 caps 6RF K59.04 - Chronic idiopathic constipation bisacodyl 10 mg (2 x 5 mg) PO BEDTIME 60 tabs 6RF K59.00 - Constipation, unspecified . TODAY'S VISIT [place] Islander #declines She is c/o malodorous flatulance. Will tx for SIBO and recommend a probiotic. She continues to do well on her medications. She continues on her pantoprazole twice a day, Linzess 145 micro g, Colace, simethicone, dicyclomine, and Reglan 5 mg 4 times a day. ROV 6 mos per pt preference. PFSH Medical History Weight loss RUQ abdominal pain Early satiety Acute diarrhea Abnormal x-ray examination Constipation Constipation Surgical History Hx of endoscopy Hx of colonoscopy Hx of section Family History Mother Thyroid condition Asthma Heart problem Diabetes Migraines Sister Thyroid condition Asthma Diabetes Migraines Father Asthma Diabetes Migraines Brother Asthma Diabetes Migraines Heart problem Social History Household Members: Children Alcohol intake: current Alcohol intake frequency: does not drink Current occupational status: disabled Review of Systems Const Denies fatigue, Denies fever(s), Denies night sweats, Denies poor appetite and Denies weight loss Eyes Details: glasses Reports requires corrective lenses ENT Reports Normal hearing present, Denies dental pain, Denies dysphagia, Denies hearing loss, Denies mouth pain, Denies odynophagia, Denies throat swelling, Denies tongue swelling and Reports other (Dentition adequate) Card Reports no additional complaints Resp Reports no additional complaints GI Details: Denies abdominal pain, Denies melena, Denies bloating, Denies hematochezia, Denies constipation, Denies GI cramping, Denies dysphagia, Reports excessive flatus, Denies early satiety, Reports heartburn, Reports diarrhea, Denies nausea, Denies odynophagia, Denies vomiting and Denies hematemesis Skin/Breast Denies pruritus, Denies lesions, Denies rash and Denies jaundice Neuro Reports Normal hearing present and Denies Abnormal speech present Endo Denies fatigue Aller/Immun Denies throat swelling and Denies tongue swelling Physical Exam Vital Signs: Last Vital Signs Pulse 80 02/04/25 11:38 BP 118/76 02/04/25 11:38 BMI result Body Mass Index 32.6 Const General: cooperative, no acute distress, well developed and well groomed Nutritional Appearance: well nourished and obese Orientation/consciousness: oriented to person, oriented to place and oriented to time Limitations: language barrier HEENT Head: Yes normocephalic and Yes atraumatic Eyes General: appearance normal, both eyes and all related structures Pupils: Equal, round and reactive pupils present Neck Neck: Yes normal visual inspection and Yes no lymphadenopathy Thyroid: Thyroid normal Resp Effort & Inspection: normal respiratory effort and able to speak in complete sentences Auscultation: clear to auscultation bilaterally Cardio Rate: regular rate Rhythm: regular rhythm Heart sounds: Normal, physiologic split S2 sound present Peripheral pulses: radial pulses present and posterior tibial pulses present GI Inspection: No distended, No Abdominal panniculus present and Yes obesity Palpation (GI): Soft to palpation, nontender, no guarding, not rigid and No hepatosplenomegaly present Percussion: Yes normal to percussion Auscultation: normal bowel sounds Rectal Exam - Female: deferred Skin General skin exam: no rashes or lesions noted, turgor normal, skin not dry, no jaundice, No spider nevi and no striae Rashes: no rashes Nails: normal Neuro General: oriented to person, oriented to place and oriented to time Cranial nerves: Yes Equal, round and reactive pupils present and Yes Normal hearing present Speech: No Abnormal speech present Extrem General: Yes normal to inspection, No clubbing, No cyanosis and No edema Psych Appearance: grossly normal and well kempt Mental Status: mental status grossly normal Speech and movement: Normal speech and movement present Affect: normal affect Attitude: cooperative Thought process: Normal thought process present and not confabulating Thought content: Normal thought content present Insight: Limited insight present (Psych) Judgement: Limited judgement present (Psych) Assessment & Plan Assessment & Plan (1) Chronic idiopathic constipation: Code(s): K59.04 - Chronic idiopathic constipation Category: Medical (2) Gastroparesis: Comment: 2022 GES=mild but significant delay Code(s): K31.84 - Gastroparesis Category: Medical (3) GERD (gastroesophageal reflux disease): Code(s): K21.9 - Gastro-esophageal reflux disease without esophagitis Category: Medical (4) Gallstones: Comment: 2022- HIDA scan Code(s): K80.20 - Calculus of gallbladder without cholecystitis without obstruction Category: Medical Plan [place] Islander #declines She is c/o malodorous flatulance. Will tx for SIBO and recommend a probiotic. She continues to do well on her medications. She continues on her pantoprazole twice a day, Linzess 145 micro g, Colace, simethicone, dicyclomine, and Reglan 5 mg 4 times a day. ROV 6 mos per pt preference. Medications: New metronidazole 500 mg PO TID 10 days 30 tabs 0RF Refilled dicyclomine 20 mg (2 x 10 mg) PO QID 30 days 240 caps 6RF K22.4 - Dyskinesia of esophagus, R13.10 - Dysphagia, unspecified simethicone 180 mg PO QID 120 caps 6RF R14.0 - Abdominal distension (gaseous) linaclotide (Linzess) 145 mcg PO QAM 30 caps 6RF K59.04 - Chronic idiopathic constipation bisacodyl 10 mg (2 x 5 mg) PO BEDTIME 60 tabs 6RF K59.00 - Constipation, unspecified docusate sodium 100 mg PO BID 60 caps 6RF K59.00 - Constipation, unspecified metoclopramide HCl 5 mg PO QID 120 tabs 6RF K31.84 - Gastroparesis pantoprazole 40 mg PO BID 60 tabs 6RF K21.9 - Gastro-esophageal reflux disease without esophagitis Coding Level of Care Code Est Pt Level 3 (57917) Diagnoses Chronic idiopathic constipation K59.04 Gastroparesis K31.84 GERD (gastroesophageal reflux disease) K21.9 Gallstones K80.20
[2025-02-04 11:38] VITALS: BP 118/76; PULSE 80; BMI 32.6
--- OUTSIDE RECORDS SUMMARY | 2025-02-04 12:43 | XMS_ITS | Encounter Summary ---
Author Organization [employer] Address [address] [facility] 7t [place] [address] Care Team Providers Care Brusher Warp Name Role Phone Helen Marte MD Primary Care Provider [phone] Malka Travis PharmD Unavailable Reason for Visit * Reason Comments Med Refill Encounter Details Date Type Department Care Team ([facility] Contact Info) Description 01/30/2024 Refill [facility] MED & PEDS [address] [place], [place] [phone] Helen Marte MD [address] [place] [address] Back pain, unspecified back location, unspecified back pain laterality, unspecified chronicity; Anxiety state Social History Tobacco Use Types Packs/Day Years Used Date Smoking Tobacco: Never Passive Smoke Exposure: Never Smokeless Tobacco: Never Depression Answer Date Recorded Patient Health Questionnaire-9 Score 3 01/23/2023 Housing Stability Answer Date Recorded What is your housing situation today? I have jluis oh 08/21/[address] you li ve. Do you have problems with any of the following? None of the above 08/21/2023 Food Insecurity Answer Date Recorded Within the past 12 months, y ou worried that your food would run out before you got money to buy more: Never True 08/21/2023 Within the past 12 months,th e food you bought just didn't last and you didn't have enough money to get more: Never True Transportation Answer Date Recorded In the past 12 months, has l ack of transportation kept you from medical appts, meetings, work or from getting things needed for daily living? No 08/21/2023 Utilities Answer Date Recorded In the past 12 months, has t he electric, gas, oil or water company threatened to shut off services in your home? No 08/21/2023 Depression Answer Date Recorded Patient Health Questionnaire-2 Score 0 01/23/2023 Comments Unknown Sex and Gender Information Value Date Recorded Sex Assigned at Female 09/03/2022 10:15 AM EDT Legal Sex Female 10:15 AM EDT Gender Identity Female 09/03/2022 10:15 AM EDT Sexual Orientation Straight 09/03/2022 10 :15 AM EDT documented as of this encounter Plan of Treatment Upcoming Encounters Date Type Department Care Team ([facility] st Contact Info) Description 02/11/2025 11:00 AM EDT Office Visit [facility] MED & PEDS [address] [place] [address] Helen Marte MD [address] [place] [address] 03/11/2025 11:00 AM EDT Medication Management [facility] MED & PEDS [address] [place] [address] Malka Travis, StefanoD [address] [place] [address] 04/20/2025 11:00 AM EDT Clinical Support [facility] MED & PEDS [address] [place] [address] Dora Matute, YOSHI [address] [place] [address] documented as of this encounter Visit Diagnoses Diagnosis Back pain, unspecified back location, unspecified back pain laterality, unspecified chronicity Anxiety state Anxiety state, unspecified documented in this encounter Additional Health Concerns Assessment Noted Time PHQ-9 Depression Total Score: 3 01/24/20 23 10:25 AM EDT documented as of this encounter Care Teams Brusher Warp Relationship Specialty Start Date End Date Helen Marte MD [address] [place] [address] PCP - General Family Medicine 11/04/18 Malka Travis, StefanoD [address] [place] [address] Pharmacist Internal Medicine 01/14/25 documented as of this encounter
--- OUTSIDE RECORDS SUMMARY | 2025-02-04 12:44 | XMS_ITS | Encounter Summary ---
Author Organization [employer] Address [address] [facility] 7t [place] [address] Care Team Providers Care Credit Reporting Clerk Name Role Phone Helen Marte MD Primary Care Provider [phone] Malka Travis PharmD Unavailable [phone] Reason for Visit * Reason Comments Med Refill Encounter Details Date Type Department [facility] ([facility] Contact Info[facility] Description 09/03/2023 Refill [facility] MED & PEDS [address] [place], [place] [phone] Helen Marte MD [address] [place] [address] Back pain, unspecified back location, unspecified back pain laterality, unspecified chronicity Social History Tobacco Use Types Packs/Day Years [...] Upcoming Encounters Date Type Department Care Team (Late st Contact Info) Description 02/11/2025 11:00 AM EDT Office Visit [facility] MED & PEDS [address] [place] [address] Helen Marte MD [address] [place] [address] 03/11/2025 11:00 AM EDT Medication Management [facility] MED & PEDS [address] [place] [address] Malka Travis PharmD [address] [place] [address] 04/20/2025 11:00 AM EDT Clinical Support [facility] MED & PEDS [address] [place] [address] Dora Matute, YOSHI [address] [place] [address] documented as of this encounter Visit Diagnoses Diagnosis Back pain, unspecified back location, unspecified back pain laterality, unspecified chronicity documented in this encounter Additional Health Concerns Assessment Noted Time PHQ-9 Depression Total Score: 3 01/24/20 23 10:25 AM EDT documented as of this encounter Care Teams Credit Reporting Clerk Relationship Specialty Start Date End Date Helen Marte MD [address] [place] [address] PCP - General Family Medicine 11/04/18 Malka Travis, Afshin [address] [place] [address] Pharmacist Internal Medicine 01/14/25 documented as of this encounter
--- OUTSIDE RECORDS SUMMARY | 2025-02-04 12:44 | XMS_ITS | Encounter Summary ---
Author Organization [employer] Address [address] [facility] 7 [place] [address] Care Team Providers Care Oleo Hasher And Renderer Name Role Phone Helen Marte MD Primary Care Provider [phone] Malka Travis PharmD Unavailable [phone] Reason for Visit * Reason Onset Date Comments Med Refill 12/15/2024 Encounter Details Date Type Department Care Team (Late st Contact Info) Description 12/15/2024 Telephone [facility] MEDICINE [address] [place] [address] Helen Marte MD [address] [place] [address] Med Refill Social History Tobacco Use Types Packs/Day Years Used Date Smoking Tobacco: Never Passive Smoke Exposure: Never Smokeless Tobacco: Never Depression Answer Date Recorded Patient Health Questionnaire-9 Score 7 12/17/2024 Patient Health Questionnaire-9 Score 7 12/17/2024 Last PHQ-9: Questionnaire Data Not on file 0 12/17/2024 Housing Stability Answer Date Recorded What is your housing situation today? I have jluis oh 12/17/[address] you li ve. Do you have problems with any of the following? None of the above 12/17/2024 Food Insecurity Answer Date Recorded Within the past 12 months, y ou worried that your food would run out before you got money to buy more: Never True 12/17/2024 Within the past 12 months,th e food you bought just didn't last and you didn't have enough money to get more: Never True Transportation Answer Date Recorded In the past 12 months, has l ack of transportation kept you from medical appts, meetings, work or from getting things needed for daily living? No 12/17/2024 Utilities Answer Date Recorded In the past 12 months, has t he electric, gas, oil or water company threatened to shut off services in your home? No 12/17/2024 Depression Answer Date Recorded Patient Health Questionnaire-2 Score 2 12/17/2024 Internet Access Answer Date Recorded Internet Access Q1 Yes 12/17/2024 Internet Access Q2 Not on file 12/17/2024 Comments Unknown Sex and Gender Information Value Date Recorded Sex Assigned at Female 09/03/2022 10:15 AM EDT Legal Sex Female 10:15 AM EDT Gender Identity Female 09/03/2022 10:15 AM EDT Sexual Orientation Straight 09/03/2022 10 :15 AM EDT documented as of this encounter Miscellaneous Notes * Telephone Encounter - Mali Dawkins - 12/15/2024 1:36 PM EST TC from pt requesting medication refill. Medications needing refill : - LORazepam (Ativan) 0.5 MG tablet - HYDROcodone-acetaminophen ([place]) 7.5-325 MG tablet To be sent to: [facility] documented in this encounter Plan of Treatment Upcoming Encounters Date Type Department Care Team (Late st Contact Info) Description 02/11/2025 11:00 AM EDT Office Visit [facility] MED & PEDS [address] [place] [address] Helen Marte MD [address] [place] [address] 03/11/2025 11:00 AM EDT Medication Management [facility] MED & PEDS [address] [place] [address] Malka Travis, PharmD [address] [place] [address] 04/20/2025 11:00 AM EDT Clinical Support [facility] MED [facility] PEDS [address] [place] [address] Dora Matute, RN [address] [place] [address] documented as of this encounter Visit Diagnoses Not on filedocumented in this encounter Additional Health Concerns Assessment Noted Time PHQ-9 Depression Total Score: 6 02/26/20 24 11:09 AM EDT documented as of this encounter Care Teams Oleo Hasher And Renderer Relationship Specialty Start Date End Date Helen Marte MD [address] [place] [address] PCP - General Family Medicine 11/04/18 Malka Travis PharmD [address] [place] [address] Pharmacist Internal Medicine 01/14/25 documented as of this encounter
--- OUTSIDE RECORDS SUMMARY | 2025-02-04 12:44 | XMS_ITS | Encounter Summary ---
Author Organization [employer] Address [address] [facility] 7 [place] [address] Care Team Providers Care Creative Designer Name Role Phone Helen Marte MD Primary Care Provider [phone] Malka Travis PharmD Unavailable [phone] Reason for Visit * Reason Onset Date Comments Reschedule 11/15/2023 Encounter Details Date Type Department Care Team ([facility] st Contact Info) Description 11/15/2023 Telephone [facility] MEDICINE [address] [place] [address] Helen Marte MD [address] [place] [address] Reschedule Social History Tobacco Use Types Packs/Day Years [...] encounter Miscellaneous Notes * Telephone Encounter - Yasmeen Capps RN - 11/27/2023 2:02 PM EST Yes, pt had acupuncture location and days and times reviewed. Thank you. * Telephone Encounter - Yasmeen Capps RN - 11/27/2023 1:49 PM EST Placed call to pt regarding message from PCP. Pt informed of XR results and PCP recommendations. Ptstates she would like referral to pain management but in the interim she will try the acupuncture clinic. Pt informed message would be sent to PCP for referral placement. * Telephone Encounter - Yasmeen Capps RN - 11/27/2023 1:49 PM EST ----- Message from Helen Marte MD sent at 11/26/2023 7:58 PM EST ----- Please inform patient that her hip xray is completely normal but her back xrays show arthritic changes everywhere which is causing her pain and discomfort.I can refer her to PT or pain medicine clinic if she would like to.Acupuncture at [facility] could also help.Thanks * Telephone Encounter - Nuria Vail - 11/15/2023 12:05 PM EST Tc from pt requesting r/s [facility] [employer] [facility] appt. documented in this encounter Plan of Treatment Upcoming Encounters Date Type Department Care Team ([facility] st Contact Info) Description 02/11/2025 11:00 AM EDT Office Visit [facility] MED & PEDS [address] [place] [address] Helen Marte MD [address] [place] [address] 03/11/2025 11:00 AM EDT Medication Management [facility] MED & PEDS [address] [place] [address] Malka Travis PharmD [address] [place] [address] 04/20/2025 11:00 AM EDT Clinical Support [facility] MED & PEDS [address] [place] [address] Dora Matute, YOSHI [address] [place] [address] documented as of this encounter Visit Diagnoses Not on filedocumented in this encounter Additional Health Concerns Assessment Noted Time PHQ-9 Depression Total Score: 3 01/24/20 23 10:25 AM EDT documented as of this encounter Care Teams Creative Designer Relationship Specialty Start Date End Date Helen Marte MD [address] [place] [address] PCP - General Family Medicine 11/04/18 Malka Travis, PharmD [address] [place] [address] Pharmacist Internal Medicine 01/14/25 documented as of this encounter
--- OUTSIDE RECORDS SUMMARY | 2025-02-04 12:44 | XMS_ITS | Encounter Summary ---
Author Organization [employer] Address [address] [facility] 7t [place] [address] Care Team Providers Care Manager Reporting Name Role Phone Helen Marte MD Primary Care Provider [phone] Malka Travis PharmD Unavailable [phone] Reason for Visit * Reason Comments Med Refill Encounter Details Date Type Department Care Team ([facility] st Contact Info) Description 08/22/2023 Refill [facility] MEDICINE [address] [place] [address] Helen Marte MD [address] [place] [address] Primary fibromyalgia syndrome Social History Tobacco Use Types Packs/Day Years [...] Description 02/11/2025 11:00 AM EDT Office Visit [facility] MED & PEDS [address] [place] [address] Helen Marte MD [address] [place] [address] 03/11/2025 11:00 AM EDT Medication Management [facility] MED & PEDS [address] [place] [address] Malka Travis PharmD [address] [place] [address] 04/20/2025 11:00 AM EDT Clinical Support [facility] MED & PEDS [address] [place] [address] Dora Matute, RN [address] [place] [address] documented as of this encounter Visit Diagnoses Diagnosis Primary fibromyalgia syndrome Unspecified myalgia and myositis documented in this encounter Additional Health Concerns Assessment Noted Time PHQ-9 Depression Total Score: 3 01/24/20 23 10:25 AM EDT documented as of this encounter Care Teams Manager Reporting Relationship Specialty Start Date End Date Helen Marte MD [address] [place] [address] PCP - General Family Medicine 11/04/18 Malka Travis PharmD [address] [place] [address] Pharmacist Internal Medicine 01/14/25 documented as of this encounter
--- OUTSIDE RECORDS SUMMARY | 2025-02-04 12:44 | XMS_ITS | Encounter Summary ---
Author Organization [employer] Address [address] [facility] 7t [place] [address] Care Team Providers Care Risk Control Product Liability Director Name Role Phone Helen Marte MD Primary Care Provider [phone] Malka Travis PharmD Unavailable [phone] Reason for Visit * Reason Comments Med Refill Encounter Details Date Type Department Care Team ([facility] Contact Info) Description 12/11/2023 Refill [facility] MED & PEDS [address] [place], [place] [phone] Helen Marte MD [address] [place] [address] Back pain, unspecified back location, unspecified back [...] Description 02/11/2025 11:00 AM EDT Office Visit [facility] MED & PEDS [address] [place] [address] Helen Marte MD [address] [place] [address] 03/11/2025 11:00 AM EDT Medication Management [facility] MED & PEDS [address] [place] [address] Malka Travis PharmD [address] [place] [address] 04/20/2025 11:00 AM EDT Clinical Support [facility] MED & PEDS [address] [place] [address] Dora Matute, YOSHI [address] [place] [address] documented as of this encounter Visit Diagnoses Diagnosis Back pain, unspecified back location, unspecified back pain laterality, unspecified chronicity documented in this encounter Additional Health Concerns Assessment Noted Time PHQ-9 Depression Total Score: 3 01/24/20 23 10:25 AM EDT documented as of this encounter Care Teams Risk Control Product Liability Director Relationship Specialty Start Date End Date Helen Maret MD [address] [place] [address] PCP - General Family Medicine 11/04/18 Malka Travis, Afshin [address] [place] [address] Pharmacist Internal Medicine 01/14/25 documented as of this encounter
--- OUTSIDE RECORDS SUMMARY | 2025-02-04 12:44 | XMS_ITS | Encounter Summary ---
Author Organization [employer] Address 75 [facility] 7t [place] [address] Care Team Providers Care Soil Fertility Extension Specialist Name Role Phone Helen Marte MD Primary Care Provider [phone] Malka Travis PharmD Unavailable [phone] Reason for Visit * Reason Comments controlled substance treatment Encounter Details Date Type Department Care Team ([facility] Contact Info) Description 02/01/2025 10:30 AM EDT Telemedicine [facility] [address] [place] [address] Dora Matute, RN [address] [place] [address] Long-term current use of opiate analgesic Social History Tobacco Use Types Packs/Day Years [...] AM EDT documented as of this encounter Progress Notes * Dora Matute RN - 02/01/2025 10:30 AM EDT S: MANUAL WINDER Televisit. Patient is taking Hydrocodone-Acetaminophen 7.5-325mg tid PRN and Lorazepam 0.5 mg at bedtime PRN. Pt denies any adverse events. Uses Lidocaine cream, Lidocaine patches, Bengay and heat PRN with very minimal pain relief. Patient denies smoking, ETOH or illicit drugs use. Reports current pain level as 2/10 located mostly in the back, knees. Patient states Vicodin provides about 50% pain relief. Patient f/u with neurologist for migraine headaches. Last PCP visit 12/17/24, next 02/11/25. No questions/ concerns at this time. O: EXECUTIVE SERVICES ADMINISTRATOR checked on No discrepancies noted. Pill count performed over the phone, Patient states she has 8 pills left for Lorazepam, 7 expected and 23 hydrocodone- acetaminophen, 22 expected. Medications are not being overused. A: Chronic opioid use r/t chronic pain. P: Patient to cont. with current medication regimen as needed and take medication only as directed.f/u for next MANUAL WINDER NV scheduled for 04/20/25 @11am. F/u with PCP 02/11/25. F/u sooner PRN. Patient verbalized understanding and agreed to plan documented in this encounter Plan of Treatment Upcoming Encounters Date Type Department Care Team (Late st Contact Info) Description 02/11/2025 11:00 AM EDT Office Visit [facility] [address] [place] [address] Helen Marte MD [address] [place] [address] 03/11/2025 11:00 AM EDT Medication Management [facility] [address] [place] [address] Malka Travis PharmD [address] [place] [address] 04/20/2025 11:00 AM EDT Clinical Support [facility] [address] [place] [address] Dora Matute RN [address] [place] [address] documented as of this encounter Visit Diagnoses Diagnosis Long-term current use of opiate analgesic Encounter for long-term (current) use of other medications documented in this encounter Additional Health Concerns Assessment Noted Time PHQ-9 Depression Total Score: 7 12/17/19 25 1:03 PM EST documented as of this encounter Care Teams Soil Fertility Extension Specialist Relationship Specialty Start Date End Date Helen Marte MD [address] [place] [address] PCP - General Family Medicine 11/04/18 Malka Travis PharmD [address] [place], [place] [id number] Pharmacist Internal Medicine 01/14/25 documented as of this encounter
--- OUTSIDE RECORDS SUMMARY | 2025-02-04 12:44 | XMS_ITS | Encounter Summary ---
Author Organization [employer] Address 75 [facility] 7 [place] [address] Care Team Providers Care Acquisition Analyst Name Role Phone Helen Marte MD Primary Care Provider [phone] Malka Travis PharmD Unavailable [phone] Reason for Visit * Reason Comments Med Refill Encounter Details Date Type Department Care Team ([facility] st Contact Info) Description 06/24/2024 Refill [facility] [address] [place] [address] Helen Marte MD 505 [place] [address] Back pain, unspecified back location, unspecified back pain laterality, unspecified chronicity; Anxiety state Social History Tobacco Use Types Packs/Day Years Used Date Smoking Tobacco: Never Passive Smoke Exposure: Never Smokeless Tobacco: Never Depression Answer Date Recorded Patient Health Questionnaire-9 Score 6 02/26/2024 Patient Health Questionnaire-9 Score 6 02/26/2024 Last PHQ-9: Questionnaire Data Not on file 0 02/26/2024 Housing Stability Answer Date Recorded What is your housing situation today? I have jluis althea 08/21/[address] you li [...] Answer Date Recorded Patient Health Questionnaire-2 Score 3 02/26/2024 Comments Unknown Sex and Gender Information Value Date Recorded Sex Assigned at Female 09/03/2022 10:15 AM EDT Legal Sex Female 10:15 AM EDT Gender Identity Female 09/03/2022 10:15 AM EDT Sexual Orientation Straight 09/03/2022 10 :15 AM EDT documented as of this encounter Plan of Treatment Upcoming Encounters Date Type Department Care Team ([facility] st Contact Info) Description 02/11/2025 11:00 AM EDT Office Visit [facility] MED & PEDS [address] [place] [address] Helen Marte MD [address] [place] [address] 03/11/2025 11:00 AM EDT Medication Management [facility] [address] [place] [address] Malka Travis, PharmD [address] [place] [address] 04/20/2025 11:00 AM EDT Clinical Support [facility] [address] [place] [address] Dora Matute, RN [address] [place] [address] documented as of this encounter Visit Diagnoses Diagnosis Back pain, unspecified back location, unspecified back pain laterality, unspecified chronicity Anxiety state Anxiety state, unspecified documented in this encounter Additional Health Concerns Assessment Noted Time PHQ-9 Depression Total Score: 6 02/26/20 24 11:09 AM EDT documented as of this encounter Care Teams Acquisition Analyst Relationship Specialty Start Date End Date Helen Marte MD [address] [place] [address] PCP - General Family Medicine 11/04/18 Malka Travis PharmD [address] [place] [address] Pharmacist Internal Medicine 01/14/25 documented as of this encounter
--- OUTSIDE RECORDS SUMMARY | 2025-02-04 12:44 | XMS_ITS | Encounter Summary ---
Author Organization [employer] Address 75 [facility] 7t [place] [address] Care Team Providers Care Production Welder Name Role Phone Helen Marte MD Primary Care Provider [phone] Malka Travis PharmD Unavailable [phone] Encounter Details Date Type Department Care Team ([facility] st Contact Info) Description 02/01/2025 Telephone [facility] MED & PEDS [address] [place], [place] [phone] Dora Matute, RN [address] [place] [address] Social History Tobacco Use Types Packs/Day Years [...] encounter Miscellaneous Notes * Telephone Encounter - Dora Matute RN - 02/01/2025 10:58 AM EDT .What WASTEWATER TREATMENT PLANT OPERATOR Tier would you like this patient to be? Tier 1 = HIGH RISK, Monthly WASTEWATER TREATMENT PLANT OPERATOR visits Tier 2 = MODerate RISK, Q3 Month visits Tier 3 = LOW RISK = Q4-6 month visits documented in this encounter Plan of Treatment Upcoming Encounters Date Type Department Care Team ([facility] st Contact Info) Description 02/11/2025 11:00 AM EDT Office Visit [facility] MED [facility] PEDS [address] [place] [address] Helen Marte MD [address] [place] [address] 03/11/2025 11:00 AM EDT Medication Management [facility]ED[facility] [address] [place] [address] Malka Travis, StefanoD [address] [place] [address] 04/20/2025 11:00 AM EDT Clinical Support [facility] [address] [place] [address] Dora Matute, RN [address] [place] [address] documented as of this encounter Visit Diagnoses Not on filedocumented in this encounter Additional Health Concerns Assessment Noted Time PHQ-9 Depression Total Score: 7 12/17/19 25 1:03 PM EST documented as of this encounter Care Teams Production Welder Relationship Specialty Start Date End Date Helen Marte MD [address] [place] [address] PCP - General Family Medicine 11/04/18 Malka Travis PharmD [address] [place] [address] Pharmacist Internal Medicine 01/14/25 documented as of this encounter
--- OUTSIDE RECORDS SUMMARY | 2025-02-04 12:44 | XMS_ITS | Encounter Summary ---
Author Organization [employer] Address 75 [facility] 7 [place] [address] Care Team Providers Care Boil Off Machine Operator Cloth Name Role Phone Helen Marte MD Primary Care Provider [phone] Malka Travis PharmD Unavailable [phone] Encounter Details Date Type Department Care Team ([facility] st Contact Info) Description 11/15/2023 Telephone [facility] MED[facility] [address] [place] [address] Helen Marte MD [address] [place] [address] Social History Tobacco Use Types Packs/Day Years Used Date Smoking Tobacco: Never Passive Smoke Exposure: Never Smokeless Tobacco: Never Depression Answer Date Recorded Patient Health Questionnaire-9 Score 3 01/23/2023 Housing Stability Answer Date Recorded What is your housing situation today? I have jluisbuzz oh 08/21/[address] you [...] Description 02/11/2025 11:00 AM EDT Office Visit [facility] MED & PEDS [address] [place] [address] Helen Marte MD [address] [place] [address] 03/11/2025 11:00 AM EDT Medication Management [facility] MED [facility] PEDS [address] [place] [address] Malka Travis PharmD [address] [place] [address] 04/20/2025 11:00 AM EDT Clinical Support [facility] PEDS [address] [place] [address] Dora Matute, YOSHI [address] [place] [address] documented as of this encounter Visit Diagnoses Not on filedocumented in this encounter Additional Health Concerns Assessment Noted Time PHQ-9 Depression Total Score: 3 01/24/20 23 10:25 AM EDT documented as of this encounter Care Teams Boil Off Machine Operator Cloth Relationship Specialty Start Date End Date Helen Marte MD [address] [place] [address] PCP - General Family Medicine 11/04/18 Malka Travis, PharmD [address] [place] [address] Pharmacist Internal Medicine 01/14/25 documented as of this encounter
--- OUTSIDE RECORDS SUMMARY | 2025-02-04 12:44 | XMS_ITS | Encounter Summary ---
Author Organization [employer] Address [address] [place] [address] 7 [place] [address] Care Team Providers Care Hotel Or Motel Room Service Supervisor Name Role Phone Helen Marte MD Primary Care Provider [phone] Malka Travis PharmD Unavailable [phone] Encounter Details Date Type Department Care Team ([facility] Contact Info) Description 06/10/2023 Orders Only [facility] MED & PEDS [address] [place] [address] Helen Marte MD [address] [place] [address] Back pain, unspecified back location, unspecified back pain laterality, unspecified chronicity (Primary Dx) Social History Tobacco Use Types Packs/Day Years Used Date Smoking Tobacco: Never Passive Smoke Exposure: Never Smokeless Tobacco: Never Depression Answer Date Recorded Patient Health Questionnaire-9 Score 3 01/23/2023 Depression Answer Date Recorded Patient Health Questionnaire-2 [...] Encounters Date Type Department Care Team (Late Contact Info) Description 02/11/2025 11:00 AM EDT Office Visit [facility] MED & PEDS [address] [place] [address] Helen Marte MD [address] [place] [address] 03/11/2025 11:00 AM EDT Medication Management [facility] [address] [place] [address] Malka Travis PharmD [address] [place] [address] 04/20/2025 11:00 AM EDT Clinical Support [facility] P[facility] [address] [place] [address] Dora Matute, YOSHI [address] [place] [address] documented as of this encounter Visit Diagnoses Diagnosis Back pain, unspecified back location, unspecified back pain laterality, unspecified chronicity- Primary documented in this encounter Additional Health Concerns Assessment Noted Time PHQ-9 Depression Total Score: 3 01/24/20 23 10:25 AM EDT documented as of this encounter Care Teams Hotel Or Motel Room Service Supervisor Relationship Specialty Start Date End Date Helen Marte MD [address] [place] [address] PCP - General Family Medicine 11/04/18 Malka Travis, StefanoD [address] [place] [address] Pharmacist Internal Medicine 01/14/25 documented as of this encounter
--- OUTSIDE RECORDS SUMMARY | 2025-02-04 12:44 | XMS_ITS | Encounter Summary ---
Author Organization [employer] Address 75 [facility] 7 [place] [address] Care Team Providers Care Labor And Employment Paralegal Name Role Phone Helen Marte MD Primary Care Provider [phone] Malka Travis PharmD Unavailable [phone] Reason for Visit * Reason Onset Date Comments Med Refill 11/06/2022 Encounter Details Date Type Department Care Team (Late Contact Info) Description 11/06/[address] [facility] MEDICINE [address] [place] [address] Helen Marte MD [address] [place] [address] Med Refill Social History Tobacco Use Types Packs/Day Years Used Date Smoking Tobacco: Never Assessed Comments Unknown Sex and Gender Information Value Date Recorded Sex Assigned at Female 09/03/2022 10:15 AM EDT Legal Sex Female 10:15 AM EDT Gender Identity Female 09/03/2022 10:15 AM EDT Sexual Orientation Straight 09/03/2022 10 :15 AM EDT documented as of this encounter Miscellaneous Notes * Telephone Encounter - Zuleima Alvares - 11/06/2022 9:57 AM EST TC from pt calling requesting a med refill for Hydrocone- aceta 5mg-325mg. PCP DR. Marte documented in this encounter Plan of Treatment Upcoming Encounters Date Type Department Care Team (Late Contact Info) Description 02/11/2025 11:00 AM EDT Office Visit [facility] MED & PEDS [address] [place] [address] Helen Marte MD [address] [place] [address] 03/11/2025 11:00 AM EDT Medication Management [facility] MED & PEDS [address] [place] [address] Malka Travis PharmD [address] [place] [address] 04/20/2025 11:00 AM EDT Clinical Support [facility] MED & PEDS [address] [place] [address] Dora Matute, YOSHI [address] [place] [address] documented as of this encounter Visit Diagnoses Not on filedocumented in this encounter Care Teams Labor And Employment Paralegal Relationship Specialty Start Date End Date Helen Marte MD [address] [place] [address] PCP - General Family Medicine 11/04/18 Malka Travis PharmD [address] [place] [address] Pharmacist Internal Medicine 01/14/25 documented as of this encounter
--- OUTSIDE RECORDS SUMMARY | 2025-02-04 12:44 | XMS_ITS | Encounter Summary ---
Author Organization [employer] Address 75 [facility] 7t [place] [address] Care Team Providers Care V Belt Inspector Name Role Phone Helen Marte MD Primary Care Provider [phone] Malka Travis PharmD Unavailable [phone] Encounter Details Date Type Department Care Team (Late st Contact Info) Description 09/13/2023 Abstract [facility] MEDICINE [address] [place] [address] Maritza Dinero Social History Tobacco Use Types Packs/Day Years [...] Upcoming Encounters Date Type Department Care Team ([facility] st Contact Info) Description 02/11/2025 11:00 AM EDT Office Visit [facility] MED & PEDS [address] [place] [address] Helen Marte MD [address] [place] [address] 03/11/2025 11:00 AM EDT Medication Management [facility] MED & PEDS [address] [place] [address] Malka Travis, PharmD [address] [place] [address] 04/20/2025 11:00 AM EDT Clinical Support [facility] MED & PEDS [address] [place] [address] Dora Matute, RN [address] [place], [place] [phone] documented as of this encounter Procedures Procedure Name Priority Date/Time Associated Diagnosis Comments COLONOSCOPY Routine 10/20/2018 documented in this encounter Results * Colonoscopy (10/20/2018) Colonoscopy Normal Normal Narrative Maritza Dinero - 10/20/2018 Recommended 10 year follow up us Historical Provider HEALTH MAINTENANCE Final Result documented in this encounter Visit Diagnoses Not on filedocumented in this encounter Additional Health Concerns Assessment Noted Time PHQ-9 Depression Total Score: 3 01/24/20 23 10:25 AM EDT documented as of this encounter Care Teams V Belt Inspector Relationship Specialty Start Date End Date Helen Marte MD [address] [place] [address] PCP - General Family Medicine 11/04/18 Malka Travis PharmD [address] [place] [address] Pharmacist Internal Medicine 01/14/25 documented as of this encounter
--- OUTSIDE RECORDS SUMMARY | 2025-02-04 12:44 | XMS_ITS | Encounter Summary ---
Author Organization [employer] Address 75 [facility] 7 [place] [address] Care Team Providers Care Transfer Agent Name Role Phone Helen Marte MD Primary Care Provider [phone] Malka Travis PharmD Unavailable [phone] Reason for Visit * Reason Onset Date Comments Med Refill 04/28/2024 Encounter Details Date Type Department Care Team (Late st Contact Info) Description 04/28/2024 Telephone [facility] MEDICINE [address] [place] [address] Helen Marte MD [address] [place] [address] Med Refill Social History Tobacco Use Types [...] enough money to get more: Never True 10/ Transportation Answer Date Recorded In the past [...] encounter Miscellaneous Notes * Telephone Encounter - [place]ito Sunshine - 04/28/2024 8:51 AM EDT TC from pt requesting medication refill. Medications needing refill : HYDROcodone-acetaminophen ([place]) 7.5-325 MG tablet and LORazepam (Ativan) 0.5 MG tablet To be sent to: [facility] - [place], [place] - [address] [place] [address] documented in this encounter Plan of Treatment Upcoming Encounters Date Type Department Care Team ([facility] st Contact Info) Description 02/11/2025 11:00 AM EDT Office Visit [facility] MED & PEDS [address] [place] [address] Helen Marte MD [address] [place] [address] 03/11/2025 11:00 AM EDT Medication Management [facility] MED & PEDS [address] [place] [address] Malka Travis, StefanoD [address] [place] [address] 04/20/2025 11:00 AM EDT Clinical Support [facility] MED & PEDS [address] [place], [place] [phone] Dora Matute, YOSHI [address] [place] [address] documented as of this encounter Visit Diagnoses Not on filedocumented in this encounter Additional Health Concerns Assessment Noted Time PHQ-9 Depression Total Score: 6 02/26/20 24 11:09 AM EDT documented as of this encounter Care Teams Transfer Agent Relationship Specialty Start Date End Date Helen Marte MD [address] [place] [address] PCP - General Family Medicine 11/04/18 Malka Travis PharmD [address] [place] [address] Pharmacist Internal Medicine 01/14/25 documented as of this encounter
--- OUTSIDE RECORDS SUMMARY | 2025-02-04 12:44 | XMS_ITS | Encounter Summary ---
Author Organization [employer] Address [address] [place] [address] 7 [place] [address] Care Team Providers Care Trial Manager Name Role Phone Helen Marte MD Primary Care Provider [phone] Malka Travis PharmD Unavailable [phone] Reason for Visit * Reason Onset Date Comments Results 02/04/2023 Encounter Details Date Type Department Care Team ([facility] st Contact Info) Description 02/04/2023 Telephone [facility] [address] [place], [place] [phone] Helen Marte MD [address] [place], [place] [phone] Results Social History Tobacco Use Types Packs/Day Years Used Date Smoking Tobacco: Never Assessed Depression Answer Date Recorded Patient Health Questionnaire-9 Score 3 01/23/2023 Depression Answer Date Recorded Patient Health Questionnaire-2 Score 0 01/23/2023 Comments Unknown Sex and Gender Information Value Date Recorded Sex Assigned at Female 09/03/2022 10:15 AM EDT Legal Sex Female 10:15 AM EDT Gender Identity Female 09/03/2022 10:15 AM EDT Sexual Orientation Straight 09/03/2022 10 :15 AM EDT COVID-19 Exposure Response Date Recorded In the last 10 days, have yo u been in contact with someone who was confirmed or suspected to have Coronavirus/COVID-19? No / Unsure 01/23/2023 9:58 AM EDT documented as of this encounter Miscellaneous Notes * Telephone Encounter - Chana Smith RN - 02/06/2023 3:11 PM EDT Incoming message from PCP I can prescribe her muscle relaxant or topical ointments.She is alreadyon COT so I wouldn't add pain meds for this matter.Can refer to PT as well if she wants to. RN called pt via [employer] scrap drop crane operator ID# [id number] and inform of above message, pt verbalizes understanding and agrees to plan. * Telephone Encounter - Chana Smith RN - 02/06/2023 10:33 AM EDT RN called pt and informed of normal X ray result of the thoracolumbar x ray. Pt reports pain persist. Pt will like to know what the care of plan is since she is still experiencing the pain. * Telephone Encounter - Karolyn Medina - 02/04/2023 10:24 AM EDT Tc from [facility] with N requesting for pt to be call with her X-ray results. Please contact pt at [phone] documented in this encounter Plan of Treatment Upcoming Encounters Date Type Department Care Team ([facility] st Contact Info) Description 02/11/2025 11:00 AM EDT Office Visit [facility] MED & PEDS [address] [place] [address] Helen Marte MD [address] [place] [address] 03/11/2025 11:00 AM EDT Medication Management [facility] MED & PEDS [address] [place] [address] Malka Travis, StefanoD [address] [place] [address] 04/20/2025 11:00 AM EDT Clinical Support [facility]EDS [address] [place] [address] Dora Matute, YOSHI [address] [place] [address] documented as of this encounter Visit Diagnoses Not on filedocumented in this encounter Additional Health Concerns Assessment Noted Time PHQ-9 Depression Total Score: 3 01/24/20 23 10:25 AM EDT documented as of this encounter Care Teams Trial Manager Relationship Specialty Start Date End Date Helen Marte MD [address] [place] [address] PCP - General Family Medicine 11/04/18 Malka Travis, StefanoD [address] [place] [address] Pharmacist Internal Medicine 01/14/25 documented as of this encounter
--- OUTSIDE RECORDS SUMMARY | 2025-02-04 12:44 | XMS_ITS | Encounter Summary ---
Author Organization [employer] Address [address] [facility] 7 [place] [address] Care Team Providers Care Autism Teacher Name Role Phone Helen Marte MD Primary Care Provider [phone] Malka Travis PharmD Unavailable Reason for Visit * Reason Onset Date Comments Med Refill 11/17/2024 Encounter Details Date Type Department Care Team (Late st Contact Info) Description 11/17/2024 Telephone [facility] MEDICINE [address] [place] [address] Helen Marte MD [address] [place] [address] Med Refill Social History Tobacco Use Types [...] encounter Miscellaneous Notes * Telephone Encounter - Miguel Reina - 11/17/2024 9:51 AM EST TC from pt requesting medication refill. Medications needing refill : LORazepam (Ativan) 0.5 MG tablet HYDROcodone-acetaminophen ([place]) 7.5-325 MG tablet To be sent to: [facility] - [address] documented in this encounter Plan of Treatment Upcoming Encounters Date Type Department Care Team ([facility] st Contact Info) Description 02/11/2025 11:00 AM EDT Office Visit [facility] MED [facility] PEDS [address] [place] [address] Helen Marte MD [address] [place] [address] 03/11/2025 11:00 AM EDT Medication Management [facility] [address] [place] [address] Malka Travis, Afshin [address] [place] [address] 04/20/2025 11:00 AM EDT Clinical Support [facility] [address] [place] [address] Dora Matute, YOSHI [address] [place] [address] documented as of this encounter Visit Diagnoses Not on filedocumented in this encounter Additional Health Concerns Assessment Noted Time PHQ-9 Depression Total Score: 6 02/26/20 24 11:09 AM EDT documented as of this encounter Care Teams Autism Teacher Relationship Specialty Start Date End Date Helen Marte MD [address] [place] [address] PCP - General Family Medicine 11/04/18 Malka Travis PharmD [address] [place] [address] Pharmacist Internal Medicine 01/14/25 documented as of this encounter
--- OUTSIDE RECORDS SUMMARY | 2025-02-04 12:44 | XMS_ITS | Encounter Summary ---
Author Organization [employer] Address [address] [facility] 7 [place] [address] Care Team Providers Care Fur Dry Cleaner Name Role Phone Helen Marte MD Primary Care Provider [phone] Malka Travis PharmD Unavailable [phone] Reason for Visit * Reason Onset Date Comments Med Refill 01/29/2023 Encounter Details Date Type Department Care Team (Late st Contact Info) Description 01/29/2023 Telephone [facility] MEDICINE [address] [place] [address] Helen Marte MD [address] [place] [address] Med Refill Social History Tobacco Use Types [...] encounter Miscellaneous Notes * Telephone Encounter - Jonn Johnson - 01/29/2023 11:47 AM EDT Tc from pt requesting med refill Hydrocodone 5 mg documented in this encounter Plan of Treatment Upcoming Encounters Date Type Department Care Team (Late st Contact Info) Description 02/11/2025 11:00 AM EDT Office Visit [facility] MED & PEDS [address] [place] [address] Helen Marte MD [address] [place] [address] 03/11/2025 11:00 AM EDT Medication Management [facility] [address] [place] [address] Malka Travis PharmD [address] [place] [address] 04/20/2025 11:00 AM EDT Clinical Support [facility] [address] [place] [address] Dora Matute, RN [address] [place] [address] documented as of this encounter Visit Diagnoses Not on filedocumented in this encounter Additional Health Concerns Assessment Noted Time PHQ-9 Depression Total Score: 3 01/24/20 23 10:25 AM EDT documented as of this encounter Care Teams Fur Dry Cleaner Relationship Specialty Start Date End Date Helen Marte MD [address] [place] [address] PCP - General Family Medicine 11/04/18 Malka Travis PharmD [address] [place] [address] Pharmacist Internal Medicine 01/14/25 documented as of this encounter
--- OUTSIDE RECORDS SUMMARY | 2025-02-04 12:44 | XMS_ITS | Encounter Summary ---
Author Organization [employer] Address [address] [facility] 7 [place] [address] Care Team Providers Care Purchasing Manager Name Role Phone Helen Marte MD Primary Care Provider [phone] Malka Travis PharmD Unavailable [phone] Reason for Visit * Reason Comments Med Refill Encounter Details Date Type Department Care Team ([facility] st Contact Info) Description 09/17/2024 Refill [facility] MEDICINE [address] [place] [address] Helen Marte MD [address] [place] [address] Primary fibromyalgia syndrome; Anxiety state; Back pain, unspecified back location, unspecified back [...] Description 02/11/2025 11:00 AM EDT Office Visit [facility] MED & PEDS [address] [place] [address] Helen Marte MD [address] [place] [address] 03/11/2025 11:00 AM EDT Medication Management [facility] MED [facility] PEDS [address] [place] [address] Malka Travis, PharmD [address] [place] [address] 04/20/2025 11:00 AM EDT Clinical Support [facility] MED [facility] PEDS [address] [place] [address] Dora Matute, YOSHI [address] [place] [address] documented as of this encounter Visit Diagnoses Diagnosis Primary fibromyalgia syndrome Unspecified myalgia and myositis Anxiety state Anxiety state, unspecified Back pain, unspecified back location, unspecified back pain laterality, unspecified chronicity documented in this encounter Additional Health Concerns Assessment Noted Time PHQ-9 Depression Total Score: 6 02/26/20 24 11:09 AM EDT documented as of this encounter Care Teams Purchasing Manager Relationship Specialty Start Date End Date Helen Marte MD [address] [place] [address] PCP - General Family Medicine 11/04/18 Malka Travis PharmD [address] [place] [address] Pharmacist Internal Medicine 01/14/25 documented as of this encounter
--- OUTSIDE RECORDS SUMMARY | 2025-02-04 12:44 | XMS_ITS | Clinical Summary ---
Author Organization [employer] Address [address] [facility] [address] [place] [address] Care Team Providers Care Engraver Lettering Name Role Phone Helen Marte MD Primary Care Provider [phone] Malka Travis PharmD Unavailable [phone] Allergies Active Allergy Reactions Criticality Noted Date Comments Lamotrigine Rash Low 10/05/2014 Other reaction(s): Itching Sumatriptan Rash Low 10/05/2014 Other reaction(s): Itching, throat closing, SOB Medications * This document contains information received from the source organization and may not represent a complete record from that organization. Simethicone Ultra Strength 180 MG capsule TAKE ONE CAPSULE in the morning, at noon, in the evening, and at bedtime 01/04/20 23 Active pantoprazole (ProtoNix) 40 MG EC tablet TAKE ONE TABLET TWICE DAILY IN THE MORNING AND AT BEDTIME 01/04/20 23 Active ondansetron (Zofran) 4 MG tablet TAKE 1 TABLET EVERY 8 HOURS NEEDED NAUSEA TAKE FOR NAUSEA RELATED MIGRAINE HEADACHES. 12/07/19 23 Active nortriptyline (Pamelor) 10 MG capsule Take 10 mg by mouth 2 times daily. 11/14/19 23 Active losartan (Cozaar) 50 MG tablet Take 50 mg by mouth in the morning. 01/04/20 23 Active Emgality 120 MG/ML auto-injector 01/18/20 23 Active furosemide (Lasix) 40 MG tablet Take 40 mg by mouth in the morning. 01/04/20 23 Active flecainide (Tambocor) 100 MG tablet Take 100 mg by mouth 2 times daily. 01/04/20 23 Active docusate sodium (Colace) 100 MG capsule TAKE ONE CAPSULE IN THE MORNING AND EVENING 01/04/20 23 Active dicyclomine (Bentyl) 10 MG capsule TAKE TWO CAPSULES FOUR TIMES DAILY IN THE MORNING, AT NOON, IN THE EVENING AND AT BEDTIME 01/04/20 23 Active calcitonin, salmon, (Miacalcin) 200 UNIT/ACT nasal spray INHALE ONE SPRAY nasally daily, altrenating nostrils 01/04/20 23 Active Eliquis 5 MG tablet TAKE ONE TABLET TWICE DAILY IN THE MORNING AND AT BEDTIME 12/10/19 23 Active [facility] BLOOD SUGAR THREE TIMES DAILY 100 each 1 06/04/20 23 Active metoclopramide (Reglan) 5 MG tablet Take 5 mg by mouth 4 times daily. Active Bisacodyl EC 5 MG EC tablet TAKE TWO TABLETS EVERY DAY AT BEDTIME 11/11/19 24 Active Linzess 145 MCG capsule Take 145 mcg by mouth in the morning. 10/13/20 23 Active nystatin (Mycostatin) creamIndication s:Diabetes mellitus without complication (CMS/HCC) APPLY TO THE AFFECTED AREA(S) TWICE DAILY 90 g 3 03/04/20 24 Active loratadine (Claritin) 10 MG tablet TAKE ONE TABLET DAILY 90 tablet 3 06/15/20 24 Active Alcohol Swabs (Alcohol Prep) 70 % pads USE TWO DAILY 100 each 11 07/24/20 24 Active FREESTYLE LITE test stripIndication s:Diabetes mellitus without complication (CMS/HCC) TEST BLOOD SUGAR FOUR TIMES DAILY 100 strip 11 07/27/20 24 Active empagliflozin (Jardiance) 25 MG Take 1 tablet (25 mg) by mouth Once per day. 30 tablet 11 08/25/20 24 2024 Active citalopram (CeleXA) 40 MG tablet Take 1 tablet (40 mg) by mouth Once per day. 30 tablet 11 08/25/20 24 2024 Active lidocaine-prilo eduar (Emla) 2.5-2.5 % creamIndication s:Primary fibromyalgia syndrome APPLY TO THE AFFECTED AREA(S) EVERY DAY NEEDED 60 g 3 09/18/20 24 Active atorvastatin (Lipitor) 20 MG tabletIndicatio ns:Benign essential hypertension TAKE 1 TABLET EVERY EVENING 90 tablet 3 09/25/20 24 Active ketoconazole (NIZOral) 2 % cream APPLY TO THE AFFECTED AREA(S) EVERY MORNING 60 g 3 10/19/20 24 Active cholecalciferol VITAMIN D (Vitamin D-3) 50 MCG (1999 UT) capsule TAKE ONE CAPSULE TWICE DAILY IN THE MORNING AND AT BEDTIME 180 capsule 3 10/19/20 24 Active metFORMIN (Glucophage) 500 MG tablet TAKE ONE TABLET TWICE DAILY WITH BREAKFAST AND SUPPER 60 tablet 11 11/17/19 25 Active traZODone (Desyrel) 100 MG tabletIndicatio ns:Chronic recurrent major depressive disorder (CMS/HCC) TAKE ONE TABLET EVERY NIGHT AT BEDTIME 30 tablet 3 11/17/19 25 Active metoprolol tartrate (Lopressor) 100 MG tablet TAKE 1 TABLET TWICE DAILY IN THE MORNING AND AT BEDTIME 180 tablet 1 12/10/19 25 Active glipiZIDE (Glucotrol) 10 MG tabletIndicatio ns:Diabetes mellitus without complication (CMS/HCC) TAKE ONE TABLET BY MOUTH TWICE DAILY 60 tablet 3 12/10/19 25 Active dilTIAZem CD (Cardizem CD) 180 MG 24 hr capsule TAKE ONE CAPSULE EVERY MORNING 90 capsule 1 12/11/19 25 Active Nutritional Supplements (Glucerna 1.0 Wilder) liquidIndicatio ns:Diabetes mellitus without complication (CMS/HCC) Take 1 Bottle by mouth 2 times daily. 1000 mL 11 12/17/19 25 Active Blood Glucose Monitoring Suppl (HedgeableStyle Aurelia Lite) w/Device kit TEST BLOOD SUGAR TWICE DAILY 1 kit 12/23/19 25 Active HYDROcodone-sriram taminophen ([place]) 7.5-325 MG tabletIndicatio ns:Back pain, unspecified back location, unspecified back pain laterality, unspecified chronicity Take 1 tablet by mouth every 8 (eight) hours if needed for severe pain. 84 tablet 01/12/20 25 Active LORazepam (Ativan) 0.5 MG tabletIndicatio ns:Anxiety state TAKE ONE TABLET EVERY DAY NEEDED FOR ANXIETY 28 tablet 01/12/20 25 Active Tirzepatide (Mounjaro) 7.5 MG/0.5ML solution auto-injector Inject 7.5 mg under the skin 1 (one) time per week. 2 mL 2 01/15/20 25 Active albuterol 108 (90 Base) MCG/ACT inhalerIndicati ons:Mild intermittent asthma, unspecified whether complicated Inhale 1-2 puffs every 6 hours as needed for shortness of breath 18 g 1 01/15/20 25 Active Continuous Blood Gluc Plumbing Inspector (FreeStyle Miguel A 2 [place]) device Use to check BS tid 1 each 02/23/20 23 2024 Discontinued(C ost of medication) Continuous Blood Gluc Sensor (FreeStyle Miguel A 2 Sensor) misc Check BS tid 1 each 02/23/20 23 2024 Discontinued(C ost of medication) Lidoderm 5 % patch APPLY 1 PATCH TO SKIN. LEAVE ON FOR 12 HOURS, THEN OFF FOR 12 HOURS DIRECTED. 30 patch 5 03/07/20 23 2024 Discontinued(M ed list cleanup (will not trigger notification to Pharmacy)) methocarbamol (Robaxin) 750 MG tablet TAKE ONE TABLET THREE TIMES DAILY NEEDED FOR NECK AND BACK PAIN 30 tablet 1 03/13/20 23 2024 Discontinued(M ed list cleanup (will not trigger notification to Pharmacy)) HYDROcodone-sriram taminophen ([place]) 5-325 MG tabletIndicatio ns:Back pain, unspecified back location, unspecified back pain laterality, unspecified chronicity Take 1 tablet by mouth every 8 (eight) hours if needed for severe pain. 84 tablet 12/11/19 24 2024 Discontinued(M ed list cleanup (will not trigger notification to Pharmacy)) alendronate (Fosamax) 70 MG tablet TAKE 1 TABLET ONCE A WEEK WITH 6 TO 8 OZ OF WATER 30 MINUTES BEFORE FIRST FOOD OF THE DAY. DO NOT LIE DOWN FOR 30 MINUTES. 12 tablet 3 01/07/20 24 2024 Discontinued(M ed list cleanup (will not trigger notification to Pharmacy)) LORazepam (Ativan) 0.5 MG tabletIndicatio ns:Anxiety state TAKE ONE TABLET EVERY DAY NEEDED FOR ANXIETY 28 tablet 12/15/19 25 2024 Discontinued(R eorder (will not trigger notification to Pharmacy)) HYDROcodone-sriram taminophen ([place]) 7.5-325 MG tabletIndicatio ns:Back pain, unspecified back location, unspecified back pain laterality, unspecified chronicity TAKE ONE TABLET EVERY 8 HOURS NEEDED FOR SEVERE PAIN 84 tablet 12/15/19 25 2024 Discontinued(R eorder (will not trigger notification to Pharmacy)) Tirzepatide (Mounjaro) 5 MG/0.5ML solution auto-injectorIn dications:Diabe christian mellitus without complication ([facility]) Inject 5 mg under the skin 1 (one) time per week. 2 mL 11 12/17/19 25 2024 Discontinued(D ose adjustment) Ubrelvy 100 MG tablet 10/30/20 24 2024 Discontinued(M ed list cleanup (will not trigger notification to Pharmacy)) Active Problems Problem Noted Date Diagnosed Date Long-term current use of opiate analgesic 2024 Asthma 08/12/2024 Gastroesophageal reflux disease 08/12/2024 Hypertension 08/12/2024 Anxiety 08/12/2024 Nonischemic cardiomyopathy 08/12/2024 Severe obesity 08/12/2024 Presence of permanent cardiac pacemaker 01/05/20 Cardiomyopathy 11/12/2019 Primary dilated cardiomyopathy 05/28/2019 Chronic recurrent major depressive disorder 03/05 Diabetes mellitus without complication 7 Obstructive sleep apnea of adult 10/31/2016 Primary fibromyalgia syndrome 04/10/2016 Central obesity 01/03/2016 Elevated hemoglobin A1c 01/03/2016 Benign neoplasm of meninges 12/07/2015 Osteoporosis 12/07/2015 Aortic valve regurgitation 11/20/2013 Anxiety state 02/21/2012 Benign essential hypertension 02/21/2012 Depressive disorder 02/21/2012 Epidermoid cyst of skin 02/21/2012 Migraine 02/21/2012 Obesity 02/21/2012 Vitamin D deficiency 02/21/2012 Encounters * This document contains information received from the source organization and may not represent a complete record from that organization. Date Type Department Care Team Description 02/01/2025 10:30 AM EDT Telemedicine [facility] [address] [place] [address] Dora Matute, RN Long-term current use of opiate analgesic 02/01/2025 Telephone [facility] [address] [place] [address] Dora Matute RN 02/01/2025 Travel 01/15/2025 Telephone [facility] [address] [place] [address] Helen Marte MD Durable Medical Equipment 01/14/2025 Travel 01/11/2025 Refill [facility] [address] [place] [phone] Helen Marte MD Back pain, unspecified back location, unspecified back pain laterality, unspecified chronicity; Anxiety state 01/11/2025 Refill [facility] [address] [place] [phone] Helen Marte MD Back pain, unspecified back location, unspecified back pain laterality, unspecified chronicity; Anxiety state 12/23/2024 Refill [facility] [address] [place] [address] Helen Marte MD 12/17/2024 11:30 AM EST Office Visit [facility] [address] [place] [address] Helen Marte MD Chronic recurrent major depressive disorder (CMS/HCC) (Primary Dx); Diabetes mellitus without complication (CMS/HCC); Dietary counseling; Exercise counseling; Nonischemic cardiomyopathy (CMS/HCC) 12/17/2024 Travel 12/16/2024 Telephone [facility] [address] [place] [address] Helen Marte MD Chart Prep 12/16/2024 Telephone [facility] [address] [place] [address] Helen Marte MD Chart Prep 12/15/2024 Telephone [facility] [address] [place] [phone] Helen Marte MD Med Refill 12/11/2024 Refill [facility] [address] [place] [phone] Eneida Connelly MD Anxiety state; Back pain, unspecified back location, unspecified back pain laterality, unspecified chronicity 12/11/2024 Refill [facility] [address] [place] [address] Helen Marte MD 12/08/2024 Refill [facility] [address] [place] [address] Helen Marte MD Diabetes mellitus without complication ([facility]) 11/17/2024 Telephone [facility] [address] [place] [phone] Helen Marte MD Med Refill 11/16/2024 Refill [facility] [address] [place] [address] Helen Marte MD Back pain, unspecified back location, unspecified back pain laterality, unspecified chronicity; Anxiety state 11/13/2024 Refill [facility] [address] [place] [address] Helen Marte MD Chronic recurrent major depressive disorder ([facility]) 11/12/2024 10:30 AM EST Clinical Support [facility] [address] [place] [address] Dora Matute RN Back pain, unspecified back location, unspecified back pain laterality, unspecified chronicity 11/12/2024 Travel from Last 3 Months Immunizations Name Administration Dates Next Due Influenza injectable quadriv alent preservative free 08/21/2022,10/06/2021,07/27/2020 Influenza, seasonal, injecta ble, preservative free 08/25/2024 Pneumococcal Conjugate PCV 20 01/14/2025 TD (adult), 2 Lf tetanus tox oid, preservative free, adsorbed 03/04/1995 Social History Tobacco Use Types Packs/Day Years Used Date Smoking Tobacco: Never Passive Smoke Exposure: Never Smokeless Tobacco: Never Tobacco Cessation:Counseling Given: Not Answered Depression Answer Date Recorded Patient Health Questionnaire-9 [...] Orientation Straight 09/03/2022 10 :15 AM EDT Last Filed Vital Signs Vital Sign Reading Time Taken Comments Blood Pressure 128/52 01/14/2025 11:20 AM EDT Pulse 78 01/14/2025 11:20 AM EDT Temperature 36.7 ??C (98.1 ??F) 12/17/2024 11:[address] Respiratory Rate 20 12/17/2024 11:54 AM EST Oxygen Saturation 97% 12/17/2024 11:54 AM EST Inhaled Oxygen Concentration - - Weight 93 kg (205 lb) 12/17/2024 11:54 AM EST Height 165.1 cm (5' 5 ) 12/17/2024 11:54 AM EST Body Mass Index 34.11 12/17/2024 11:54 AM EST Plan of Treatment Upcoming Encounters Date Type Department Care Team (Late st Contact Info) Description 02/11/2025 11:00 AM EDT Office Visit [facility] [address] [place], [place] [phone] Helen Marte MD [address] [place] [address] 03/11/2025 11:00 AM EDT Medication Management [facility] [address] [place] [address] Malka Travis, PharmD [address] [place] [address] 04/20/2025 11:00 AM EDT Clinical Support [facility] [address] [place] [address] Dora Matute, RN [address] [place] [address] Health Maintenance Due Date Last Done Comments CT Colonography 1966 FIT DNA/Cologuard 1966 FIT 1966 FOBT 1966 HIV Screening 1966 Sigmoidoscopy 1966 Eye Exam 1976 Hepatitis C Screening 1984 Hepatitis B Vaccines (1 of 3 - 19+ 3-dose series) 1985 Pap Smear 1987 DTaP/Tdap/Td Vaccines (1 - Tdap) 03/05/1995 03/04/1995 Cervical Cancer Screening 1996 HPV/Cotest 1996 Zoster Vaccines (1 of 2) 2016 Dental Prophylaxis 02/15/2017 08/16/2016, 1 11/19/2014, 02/11/2015 Dental Oral Exam 10/23/2019 04/22/2019, , 12/22/2014 Dental X-Ray: Full Mouth 04/23/2022 04/22/2019, 12/05 COVID-19 Vaccine ( season) 2024 Diabetes: Hemoglobin A1C 11/25/202408/25/ 024, 02/26/2024, 11/20/2023, Additional history exists Diabetes: Foot Exam 02/25/2025 02/26/2024, 02/26/2024, 02/26/2024, Additional history exists Diabetes: Urine Protein Screening 02/25/2025 02/26/2024, 08/21/2022, 12/07/2020, Additional history exists Lipid Panel 02/25/2025 02/26/2024, 08/04, 12/07/2020 Dental X-Ray: Bitewings 08/13/2025 08/12/20 24, 04/22/2019, 03/02/2019, Additional history exists Alcohol/Substance Use Screening 12/17/2025 12/17/2024 Depression Screening 12/17/2025 12/17/2024, 12/17/19 SDOH Screening 12/17/2025 12/17/2024 Tobacco Screening 12/17/2025 12/17/2024 Mammogram 09/25/2026 09/25/2024, 11/05, 11/05/2017 Colonoscopy 10/20/2028 10/20/2018 Colorectal Cancer Screening 10/20/2028 RSV Patients and Patients Aged 60 years or older (1 - 1-dose 75+ series) 2041 Influenza Vaccine Completed 08/25/2024, , 10/06/2021, Additional history exists Pneumococcal Vaccine: 50+ Years Completed 01/14/2025 HIB Vaccines Aged Out No longer eligi ble based on patient's age to complete this topic HPV Vaccines Aged Out No longer eligi ble based on patient's age to complete this topic Hepatitis A Vaccines Aged Out No long er eligible based on patient's age to complete this topic IPV Vaccines Aged Out No longer eligi ble based on patient's age to complete this topic Meningococcal Vaccine Aged Out No robert joesph eligible based on patient's age to complete this topic RSV under 20 months Aged Out No longe r eligible based on patient's age to complete this topic Rotavirus Vaccines Aged Out No longer eligible based on patient's age to complete this topic Procedures Procedure Name Priority Date/Time Associated Diagnosis Comments POCT DERIC-14 URINE DRUG SCREEN Routine 11/12/2024 11:02 AM EST Back pain, unspecified back location, unspecified back pain laterality, unspecified chronicity BI MAMMOGRAM SCREENING TOMOSYNTHESIS BILATERAL Routine 09/25/2024 12:00 PM EST Breast cancer screening by mammogram POCT GLYCATED HEMOGLOBIN, TOTAL Routine 08/25/2024 11:17 AM EDT Diabetes mellitus without complication (CMS/HCC) BITEWING - SINGLE RADIOGRAPHIC IMAGE Routine 08/12/2024 11:30 AM EDT Closed fracture of tooth, initial encounter ALBUMIN, RANDOM URINE W/CREATININE Routine 02/26/2024 11:30 AM EDT Diabetes mellitus without complication (CMS/HCC) Benign essential hypertension Primary dilated cardiomyopathy (CMS/HCC) Obstructive sleep apnea of adult Presence of permanent cardiac pacemaker LIPID PANEL, STANDARD Routine 02/26/2024 11:24 AM EDT Diabetes mellitus without complication (CMS/HCC) Benign essential hypertension Primary dilated cardiomyopathy (CMS/HCC) Obstructive sleep apnea of adult Presence of permanent cardiac pacemaker INTRAORAL - COMPLETE SERIES OF RADIOGRAPHIC IMAGES Routine 04/22/2019 12:00 AM EDT PERIODIC ORAL EVALUATION - ESTABLISHED PATIENT Routine 04/22/2019 12:00 AM EDT HM COLONOSCOPY Routine 10/20/2018 PROPHYLAXIS - ADULT Routine 08/16/2016 1 2:00 AM EDT from Last 3 Months or Most Recently Relevant to Health Maintenance Results * POCT DERIC-14 Urine Drug Screen (11/12/2024 11:02 AM EST) Opiate Screen, Urine Positive Benzodiazepines Screen, Urine Positive Urine Urine specimen obtained by clean catch procedure / Unknown 11/12/2024 11:02 AM EST Narrative Dora Matute RN - 11/12/2024 11:02 AM EST Lot# [id number] Exp: 10-10-25 us Helen Marte MD POINT OF CARE TEST ENTER/EDIT ORDERABLES Final Result * BI Mammogram Screening Tomosynthesis Bilateral (09/25/2024 12:00 PM EST) Anatomical Region Laterality Modality Breast Bilateral Mammography 09/25/2024 12:0 0 PM EST Narrative 10/06/2024 12:50 PM EST ? [facility] ? [address] ?[place] [address] ? Mammography Report ? Signed ? Patient: Louise,Reba ?MR#: [id number] ?? 2 ? : 1965 ?Acct:[id number] ? Age/Sex: 59 / F ?ADM Date: 09/25/24 ? Loc: HO.MAMMO ? Attending Dr: Helen Marte MD ? Ordering Physician: Helen Marte MD ?Results: 2Be ?? nign Findings ? Date of Service: 09/25/24 ?Follow Up: 1 Year From Orig ?? inal Mammogram ? Procedure(s): MM tomosynthesis screening BI ?? Accession Number(s): [id number] ? cc: Helen Marte MD ? EXAMINATION: ?? MM SCREENING DIGITAL BREAST TOMOSYNTHESIS, BILATERAL ? CLINICAL INFORMATION: ? Screening. Asymptomatic. ? COMPARISON: ?? Mammography: Comparison is made with available priors ? TECHNIQUE: ?? Digital breast mammography with tomosynthesis is performed in both the ?? craniocaudal and mediolateral oblique views along with computer-aided ?? detection (CAD). ? FINDINGS: ?? There are scattered areas of fibroglandular density (ACR BI-RADS breast ?? composition Category b). ?? Pacemaker overlies and obscures the superior posterior left breast on ?? MLO view. ?? There are no significant masses, abnormal calcifications, or other ?? abnormalities. ? MM/MM tomosynthesis screening BI ?? IMPRESSION: ?? No mammographic evidence of malignancy. ? ASSESSMENT: ? BI-RADS BI-RADS 2 - Benign Findings ? RECOMMENDATION: ?? Routine annual mammography screening. ? 1 year F/U ? This examination should not preclude the clinical evaluation of a ?? suspicious palpable abnormality. ? This patient's information was entered into a reminder system with a ?? target due date for their next mammogram. ? Electronically signed by: ??María Smalls DO ??10/06/2024 12:47 PM EST ?? RP ? Dictated By: ?María Smalls DO ? Signed By: ?<Electronically signed by María Smalls, DO in OV> ? 10/06/24 1247 ? DD/ 1200 ? TD/TT: 09/25/24 1218 ? Banquet Prep Cook: ? Procedure Note Donpollyter, Image - 10/06/2024 [facility] [address] [place] [address] Mammography Report Signed Patient: Carisa Louise#: [id number] 2 : 1965Acct:[id number] Age/Sex: 59 / FADM Date: 09/25/24 Loc: HO.MAMMO Attending Dr: Helen Marte MD Ordering Physician: Helen Marte MDResults: 2Be nign Findings Date of Service: 09/25/24Follow Up: 1 Year From Orig ina Mammogram Procedure(s): MM tomosynthesis screening BI Accession Number(s): [id number] cc: Helen Marte MD EXAMINATION: MM SCREENING DIGITAL BREAST TOMOSYNTHESIS, BILATERAL CLINICAL INFORMATION: Screening. Asymptomatic. COMPARISON: Mammography: Comparison is made with available priors TECHNIQUE: Digital breast mammography with tomosynthesis is performed in both the craniocaudal and mediolateral oblique views along with computer-aided detection (CAD). FINDINGS: There are scattered areas of fibroglandular density (ACR BI-RADS breast composition Category b). Pacemaker overlies and obscures the superior posterior left breast on MLO view. There are no significant masses, abnormal calcifications, or other abnormalities. MM/MM tomosynthesis screening BI IMPRESSION: No mammographic evidence of malignancy. ASSESSMENT: BI-RADS BI-RADS 2 - Benign Findings RECOMMENDATION: Routine annual mammography screening. 1 year F/U This examination should not preclude the clinical evaluation of a suspicious palpable abnormality. This patient's information was entered into a reminder system with a target due date for their next mammogram. Electronically signed by: María Smalls DO 10/06/2024 12:47 PM [facility] Dictated By: María Smalls DO Signed By: <Electronically signed by María Smalls DO in OV> 10/06/24 1247 DD/ 1200 TD/TT: 09/25/24 1218 Banquet Prep Cook: us Helen Marte MD IMG BI PROCEDURES Final Resul t * (ABNORMAL) POCT HGB A1C (08/25/2024 11:17 AM EDT) Hemoglobin A1C 8.4(A) 4.0 - 6.0 % QC Media Lot # [id number] Lot# Expiration Date 62 Blood 08/25/2024 11:1 7 AM EDT us Helen Marte MD POINT OF CARE TEST ENTER/EDIT ORDERABLES Final Result * Albumin, Random Urine W/Creatinine (02/26/2024 11:30 AM EDT) Creatinine, Urine 309.93 mg/dL [facility] Microalbumin Urine 49.0 mg/L [facility] Microalbum Creatinine Ratio Ur 15.8 <30 ug/mg cr [facility] Comment:Albumin/Creatinine R atio Reference Ranges: Normal: < 30 ug/mg creatinine Microalbuminuria: 30 - 300 ug/mg creatinineClinical Albuminuria: > 300 ug/mg creatinine Urine (Urine, Random) 02/26/2024 11:30 AM EDT 02/26/2024 2:46 PM EDT Helen Marte MD LAB URINE ORDERABLES Final Re sult [facility] [address] [place] [address] [phone] * (ABNORMAL) Lipid Panel, Standard (02/26/2024 11:24 AM EDT) Triglycerides 166(H) <150 mg/dL [facility] Comment:Desirable Triglyceri de: less than 150 mg/dLBorderline High Triglyceride 150-199 mg/dLHigh Triglyceride: 200-499 mg/dLVery High Triglyceride: greater than or equal to 5OO mg/dL Cholesterol 151 <200 mg/dL [facility] Comment:Desirable Cholestero l: less than 200 mg/dLBorderline High Cholesterol: 200-239 mg/dLHigh Cholesterol: greater than 239 mg/dL LDL Cholesterol Calculated 78 <100 mg/dL [facility] Comment:Desirable LDL: less than 100 mg/dLNear Optimal/Above Optimal LDL: 110- 129 mg/dLBorderline High LDL: 130-159 mg/dLHigh LDL: 160-189 mg/dLVery High LDL: greater than or equal to 190 mg/dL HDL Cholesterol 40(L) >40 mg/dL [facility] Comment:Desirable HDL: great er than 40 mg/dL Note: This HDL assay may give artificially low results in patients with liver disease. Blood Venous blood specimen / Unknown 02/26/2024 11:24 AM EDT 02/26/2024 2:49 PM EDT us Helen Marte MD LAB BLOOD ORDERABLES Final Re sult [facility] [address] [place] [address] [phone] * Hm Colonoscopy (10/20/2018) Colonoscopy Normal Normal Narrative Maritza Dinero - 10/20/2018 Recommended 10 year follow up Historical Provider HEALTH MAINTENANCE Final Result from Last 3 Months or Most Recently Relevant to Health Maintenance [place] [address] [place] [address] - [facility] Care Teams Engraver Lettering Relationship Specialty Start Date End Date Helen Marte MD [address] [place] [phone] PCP - General Family Medicine 11/04/18 Malka Travis, PharmD [address] [place] [phone] Pharmacist Internal Medicine 01/14/25
--- OUTSIDE RECORDS SUMMARY | 2025-02-04 12:44 | XMS_ITS | Encounter Summary ---
Author Organization [employer] Address [address] [facility] 7t [place] [address] Care Team Providers Care Clinical Trial Assistant Name Role Phone Helen Marte MD Primary Care Provider [phone] Malka Travis PharmD Unavailable [phone] Reason for Visit * Reason Comments Med Refill Encounter Details Date Type Department Care Team (Late Contact Info) Description 01/30/2023 Refill [facility] MEDICINE [address] [place] [address] Helen Marte MD 505 [place] [address] Social History Tobacco Use Types Packs/Day Years [...] Description 02/11/2025 11:00 AM EDT Office Visit [facility] MED & PEDS 505 [place] [address] Helen Marte MD 505 [place] [address] 03/11/2025 11:00 AM EDT Medication Management [facility] MED & PEDS 505 [place] [address] Malka Travis PharmD 230 [place] [address] 04/20/2025 11:00 AM EDT Clinical Support [facility] MED & PEDS 505 [place] [address] Dora Matute RN 505 [place] [address] documented as of this encounter Visit Diagnoses Not on filedocumented in this encounter Additional Health Concerns Assessment Noted Time PHQ-9 Depression Total Score: 3 01/24/20 23 10:25 AM EDT documented as of this encounter Care Teams Clinical Trial Assistant Relationship Specialty Start Date End Date Helen Marte MD 505 [place] [address] PCP - General Family Medicine 11/04/18 Malka Travis PharmD 230 [place] [address] Pharmacist Internal Medicine 01/14/25 documented as of this encounter
--- OUTSIDE RECORDS SUMMARY | 2025-02-04 12:44 | XMS_ITS | Encounter Summary ---
Author Organization [employer] Address [address] [facility] 7t [place] [address] Care Team Providers Care Char Filter Tank Tender Name Role Phone Helen Marte MD Primary Care Provider [phone] Malka Travis PharmD Unavailable [phone] Reason for Visit * Reason Comments Med Refill Encounter Details Date Type Department Care Team ([facility] st Contact Info) Description 12/11/[address] [facility] MEDICINE 230 [place] [address] Pacheco Green MD 505 [place] [address] Back pain, unspecified back location, unspecified back [...] Description 02/11/2025 11:00 AM EDT Office Visit [facility] MED & PEDS [address] [place] [address] Helen Marte MD 505 [place] [address] 03/11/2025 11:00 AM EDT Medication Management [facility] MED & PEDS 505 [place] [address] Malka Travis PharmD [address] [place], [place] [address] 04/20/2025 11:00 AM EDT Clinical Support [facility] MED & PEDS 505 [place] [address] Dora Matute, YOSHI 505 [place] [address] documented as of this encounter Visit Diagnoses Diagnosis Back pain, unspecified back location, unspecified back pain laterality, unspecified chronicity documented in this encounter Additional Health Concerns Assessment Noted Time PHQ-9 Depression Total Score: 3 01/24/20 23 10:25 AM EDT documented as of this encounter Care Teams Char Filter Tank Tender Relationship Specialty Start Date End Date Helen Marte MD 505 [place] [address] PCP - General Family Medicine 11/04/18 Malka Travis, StefanoD [address] [place] [address] Pharmacist Internal Medicine 01/14/25 documented as of this encounter
--- OUTSIDE RECORDS SUMMARY | 2025-02-04 12:44 | XMS_ITS | Encounter Summary ---
Author Organization [employer] Address 75 [facility] 7t [place] [address] Care Team Providers Care House Worker Name Role Phone Helen Marte MD Primary Care Provider [phone] Malka Travis PharmD Unavailable [phone] Reason for Visit * Reason Comments Med Refill Encounter Details Date Type Department Care Team ([facility] Contact Info) Description 10/19/2024 Refill [facility] MED & PEDS 505 [place], [place] [phone] Connie Yepez MD 505 [place] [address] Anxiety state; Back pain, unspecified back location, [...] Upcoming Encounters Date Type Department Care Team ([facility] st Contact Info) Description 02/11/2025 11:00 AM EDT Office Visit [facility] MED & PEDS 505 [place] [address] Helen Marte MD 505 [place] [address] 03/11/2025 11:00 AM EDT Medication Management [facility] MED & PEDS 505 [place] [address] Malka Travis, PharmD [address] [place] [address] 04/20/2025 11:00 AM EDT Clinical Support [facility] MED & PEDS 505 [place] [address] Dora Matute, YOSHI 505 [place] [address] documented as of this encounter Visit Diagnoses Diagnosis Anxiety state Anxiety state, unspecified Back pain, unspecified back location, unspecified back pain laterality, unspecified chronicity documented in this encounter Additional Health Concerns Assessment Noted Time PHQ-9 Depression Total Score: 6 02/26/20 24 11:09 AM EDT documented as of this encounter Care Teams House Worker Relationship Specialty Start Date End Date Helen Marte MD 505 [place] [address] PCP - General Family Medicine 11/04/18 Malka Travis, StefanoD [address] [place] [address] Pharmacist Internal Medicine 01/14/25 documented as of this encounter
--- OUTSIDE RECORDS SUMMARY | 2025-02-04 12:44 | XMS_ITS | Encounter Summary ---
Author Organization [employer] Address [address] [facility] 7 [place] [address] Care Team Providers Care Automotive Refinish Technician Name Role Phone Helen Marte MD Primary Care Provider [phone] Malka Travis PharmD Unavailable [phone] Reason for Visit * Reason Comments Med Refill Encounter Details Date Type Department Care Team ([facility] Contact Info) Description 05/26/2024 Refill [facility] CH[facility] MED & PEDS 505 [place], [place] [phone] Helen Marte MD 505 [place] [address] Back pain, unspecified back location, unspecified back [...] Upcoming Encounters Date Type Department Care Team ([facility] st Contact Info) Description 02/11/2025 11:00 AM EDT Office Visit [facility] MED & PEDS [address] [place] [address] Helen Marte MD 505 [place] [address] 03/11/2025 11:00 AM EDT Medication Management [facility] MED & PEDS 505 [place] [address] Malka Travis, PharmD 230 [place], [place] [id number] 04/20/2025 11:00 AM EDT Clinical Support [facility] MED & PEDS 505 [place] [address] Dora Matute, YOSHI 505 [place] [address] documented as of this encounter Visit Diagnoses Diagnosis Back pain, unspecified back location, unspecified back pain laterality, unspecified chronicity Anxiety state Anxiety state, unspecified documented in this encounter Additional Health Concerns Assessment Noted Time PHQ-9 Depression Total Score: 6 02/26/20 24 11:09 AM EDT documented as of this encounter Care Teams Automotive Refinish Technician Relationship Specialty Start Date End Date Helen Marte MD 505 [place] [address] PCP - General Family Medicine 11/04/18 Malka Travis, StefanoD [address] [place] [address] Pharmacist Internal Medicine 01/14/25 documented as of this encounter
--- OUTSIDE RECORDS SUMMARY | 2025-02-04 12:44 | XMS_ITS | Encounter Summary ---
Author Organization [employer] Address [address] [place] [address] 7 [place] [address] Care Team Providers Care Women'S Swim Coach Name Role Phone Helen Marte MD Primary Care Provider [phone] Malka Travis PharmD Unavailable [phone] Encounter Details Date Type Department Care Team (Late st Contact Info) Description 11/16/[address] [facility] MED & PEDS 505 [place] [address] Chioma Neely LPN Social History Tobacco Use Types Packs/Day Years [...] AM EDT Office Visit [facility] MED & PEDS 505 [place] [address] Helen Marte MD 505 [place] [address] 03/11/2025 11:00 AM EDT Medication Management [facility] MED & PEDS 505 [place] [address] Malka Travis, PharmD 230 [place], [place] [id number] 04/20/2025 11:00 AM EDT Clinical Support [facility] CHC MED & PEDS 505 [place] [address] Dora Matute, RN 505 [place] [address] documented as of this encounter Visit Diagnoses Not on filedocumented in this encounter Care Teams Women'S Swim Coach Relationship Specialty Start Date End Date Helen Marte MD 505 [place] [address] PCP - General Family Medicine 11/04/18 Malka Travis PharmD [address] [place] [address] Pharmacist Internal Medicine 01/14/25 documented as of this encounter
--- OUTSIDE RECORDS SUMMARY | 2025-02-04 12:44 | XMS_ITS | Encounter Summary ---
Author Organization [facility] [employer] Address 75 [facility] 7t [place] [address] Care Team Providers Care Violin Restorer Name Role Phone Helen aMrte MD Primary Care Provider [phone] Malka Travis PharmD Unavailable [phone] Encounter Details Date Type Department Care Team (Latest Contact Info) Description 02/01/2025 Travel Social History Tobacco Use Types Packs/Day Years [...] 02/11/2025 11:00 AM EDT Office Visit [facility] MED & PEDS 505 [place] [address] Helen Marte MD 505 [place] [address] 03/11/2025 11:00 AM EDT Medication Management [facility] MED & PEDS 505 [place] [address] Malka Travis PharmD 230 [place] [address] 04/20/2025 11:00 AM EDT Clinical Support [facility] MED & PEDS 505 [place] [address] Dora Matute, RN 505 [place] [address] documented as of this encounter Visit Diagnoses Not on filedocumented in this encounter Additional Health Concerns Assessment Noted Time PHQ-9 Depression Total Score: 7 12/17/19 25 1:03 PM EST documented as of this encounter Care Teams Violin Restorer Relationship Specialty Start Date End Date Helen Marte MD 505 [place] [address] PCP - General Family Medicine 11/04/18 Malka Travis, PharmD 230 [place] [address] Pharmacist Internal Medicine 01/14/25 documented as of this encounter
--- OUTSIDE RECORDS SUMMARY | 2025-02-04 12:44 | XMS_ITS | Encounter Summary ---
Author Organization [employer] Address [address] [place] [address] [address] [place] [address] Care Team Providers Care Mva Operator Name Role Phone Helen Marte MD Primary Care Provider [phone] Malka Travis PharmD Unavailable [phone] Encounter Details Date Type Department Care Team ([facility] Contact Info) Description 12/19/2022 Telephone [facility] MED & PEDS 505 [place], [place] [phone] Helen Marte MD 505 [place] [address] Social History Tobacco Use Types Packs/Day Years [...] suspected to have Coronavirus/COVID-19? No / Unsure 12/11/2022 2:07 PM EST documented as of this encounter Plan of Treatment Upcoming Encounters Date Type Department Care Team ([facility] Contact Info) Description 02/11/2025 11:00 AM EDT Office Visit [facility] MED & PEDS 505 [place], [place] [phone] Helen Marte MD 505 [place] [address] 03/11/2025 11:00 AM EDT Medication Management [facility] MED & PEDS [address] [place] [address] Malka Travis PharmD 230 [place] [address] 04/20/2025 11:00 AM EDT Clinical Support [facility] MED & PEDS 505 [place] [address] Dora Matute, RN 505 [place] [address] documented as of this encounter Visit Diagnoses Not on filedocumented in this encounter Care Teams Mva Operator Relationship Specialty Start Date End Date Helen Marte MD 505 [place] [address] PCP - General Family Medicine 11/04/18 Malka Travis PharmD 230 [place] [address] Pharmacist Internal Medicine 01/14/25 documented as of this encounter
--- OUTSIDE RECORDS SUMMARY | 2025-02-04 12:44 | XMS_ITS | Encounter Summary ---
Author Organization [employer] Address 75 [facility] 7 [place] [address] Care Team Providers Care Cafeteria Director Name Role Phone Helen Marte MD Primary Care Provider [phone] Malka Travis PharmD Unavailable [phone] Reason for Visit * Reason Comments Med Refill Encounter Details Date Type Department Care Team ([facility] Contact Info) Description 04/16/2024 Refill [facility] MED & PEDS 505 [place], [place] [phone] Helen Marte MD 505 [place] [address] Social History Tobacco Use Types Packs/Day Years [...] Upcoming Encounters Date Type Department Care Team ([facility] st Contact Info) Description 02/11/2025 11:00 AM EDT Office Visit [facility] MED & PEDS [address] [place] [address] Helen Marte MD 505 [place] [address] 03/11/2025 11:00 AM EDT Medication Management [facility] MED & PEDS [address] [place] [address] Malka Travis, PharmD 230 [place] [address] 04/20/2025 11:00 AM EDT Clinical Support [facility] MED & PEDS [address] [place] [address] Dora Matute, YOSHI 505 [place] [address] documented as of this encounter Visit Diagnoses Not on filedocumented in this encounter Additional Health Concerns Assessment Noted Time PHQ-9 Depression Total Score: 6 02/26/20 24 11:09 AM EDT documented as of this encounter Care Teams Cafeteria Director Relationship Specialty Start Date End Date Helen Marte MD 505 [place], [place] PCP - General Family Medicine 11/04/18 Malka Travis, StefanoD 230 [place] [address] Pharmacist Internal Medicine 01/14/25 documented as of this encounter
--- OUTSIDE RECORDS SUMMARY | 2025-02-04 12:45 | XMS_ITS | Encounter Summary ---
Author Organization [employer] Address [address] [facility] 7 [place] [address] Care Team Providers Care Combination Man Name Role Phone Helen Marte MD Primary Care Provider [phone] Malka Travis PharmD Unavailable [phone] Encounter Details Date Type Department Care Team ([facility] st Contact Info) Description 09/18/2024 Orders Only [facility] CHC MED & PEDS 505 [place], [place] [phone] NegronPacheco Noel MD 505 [place] [address] Social History Tobacco Use Types Packs/Day Years [...] Upcoming Encounters Date Type Department Care Team ([facility] st Contact Info) Description 02/11/2025 11:00 AM EDT Office Visit [facility] MED & PEDS [address] [place] [address] Helen Marte MD 505 [place] [address] 03/11/2025 11:00 AM EDT Medication Management [facility] MED & PEDS 505 [place] [address] Malka Travis, PharmD 230 [place] [address] 04/20/2025 11:00 AM EDT Clinical Support [facility] MED & PEDS [address] [place] [address] Dora Matute, RN 505 [place] [address] documented as of this encounter Visit Diagnoses Not on filedocumented in this encounter Additional Health Concerns Assessment Noted Time PHQ-9 Depression Total Score: 6 02/26/20 24 11:09 AM EDT documented as of this encounter Care Teams Combination Man Relationship Specialty Start Date End Date Helen Marte MD 505 [place] [address] PCP - General Family Medicine 11/04/18 Malka Travis, PharmD 230 [place] [address] Pharmacist Internal Medicine 01/14/25 documented as of this encounter
--- OUTSIDE RECORDS SUMMARY | 2025-02-04 12:45 | XMS_ITS | Encounter Summary ---
Author Organization [employer] Address [address] [place] [address] 7 [place] [address] Care Team Providers Care Upper Marker Name Role Phone Helen Marte MD Primary Care Provider [phone] Malka Travis PharmD Unavailable [phone] Encounter Details Date Type Department Care Team ([facility] Contact Info) Description 04/30/2023 Orders Only [facility] CHC MED & PEDS 505 [place] [address] Chioma Neely LPN Social History Tobacco Use [...] Description 02/11/2025 11:00 AM EDT Office Visit [facility] CH[facility] MED & PEDS 505 [place] [address] Helen Marte MD 505 [place] [address] 03/11/2025 11:00 AM EDT Medication Management [facility] MED & PEDS 505 [place] [address] Malka Travis PharmD 230 [place] [address] 04/20/2025 11:00 AM EDT Clinical Support [facility] MED & PEDS 505 [place] [address] Dora Matute, RN 505 [place] [address] documented as of this encounter Visit Diagnoses Not on filedocumented in this encounter Additional Health Concerns Assessment Noted Time PHQ-9 Depression Total Score: 3 01/24/20 23 10:25 AM EDT documented as of this encounter Care Teams Upper Marker Relationship Specialty Start Date End Date Helen Marte MD 505 [place] [address] PCP - General Family Medicine 11/04/18 Malka Travis, PharmD 230 [place] [address] Pharmacist Internal Medicine 01/14/25 documented as of this encounter
--- OUTSIDE RECORDS SUMMARY | 2025-02-04 12:45 | XMS_ITS | Encounter Summary ---
Author Organization [employer] Address 75 [facility] 7 [place] [address] Care Team Providers Care Camp Dining Room Attendant Name Role Phone Helen Marte MD Primary Care Provider [phone] Malka Travis PharmD Unavailable [phone] Reason for Visit * Reason Onset Date Comments Med Refill 09/17/2024 Encounter Details Date Type Department Care Team (Late st Contact Info) Description 09/17/2024 Telephone [facility] MEDICINE 230 [place] [address] Helen Marte MD 505 [place] [address] Med Refill Social History Tobacco Use Types [...] encounter Miscellaneous Notes * Telephone Encounter - Stef Cazares - 09/18/2024 12:22 PM EST TC from son requesting update on narc. States pt out of medication as of today . Will not have for tomorrow LORazepam (Ativan) 0.5 MG tablet HYDROcodone-acetaminophen ([place]) 7.5-325 MG tablet * Telephone Encounter - Miguel Reina - 09/17/2024 9:38 AM EST TC from pt requesting medication refill. Medications needing refill : LORazepam (Ativan) 0.5 MG tablet HYDROcodone-acetaminophen ([place]) 7.5-325 MG tablet To be sent to: [facility] - [place], [place] - [address] [facility] documented in this encounter Plan of Treatment Upcoming Encounters Date Type Department Care Team (Late st Contact Info) Description 02/11/2025 11:00 AM EDT Office Visit [facility] MED & PEDS [address] [place] [address] Helen Marte MD 505 [place] [address] 03/11/2025 11:00 AM EDT Medication Management [facility] MED & PEDS [address] [place] [address] Malka Travis PharmD 230 [place] [address] 04/20/2025 11:00 AM EDT Clinical Support [facility] MED & PEDS 505 [place] [address] Dora Matute, YOSHI 505 [place] [address] documented as of this encounter Visit Diagnoses Not on filedocumented in this encounter Additional Health Concerns Assessment Noted Time PHQ-9 Depression Total Score: 6 02/26/20 24 11:09 AM EDT documented as of this encounter Care Teams Camp Dining Room Attendant Relationship Specialty Start Date End Date Helen Marte MD 505 [place] [address] PCP - General Family Medicine 11/04/18 Malka Travis PharmD [address] [place] [address] Pharmacist Internal Medicine 01/14/25 documented as of this encounter
== END 2025-02-04 12:30 | disposition home or self-care (01) ==
LOC: HO.HGI 11:27
PROVIDERS: PCP Pediatrics; Visit Provider Nurse Practitioner
DX: K59.04 Chronic idiopathic constipation (principal); K31.84 Gastroparesis; K21.9 Gastro-esophageal reflux disease without esophagitis; K80.20 Calculus of gallbladder without cholecystitis without obstruction
CPT/HCPCS: 99213

== ENCOUNTER → 2025-02-04 11:26 | Outpatient (BNVA) | payer OTHER, SELFPAY | PROVIDERS: PCP Pediatrics; Visit Provider Nurse Practitioner | DX: K59.04 Chronic idiopathic constipation (principal); K21.9 Gastro-esophageal reflux disease without esophagitis; K22.4 Dyskinesia of esophagus; K31.84 Gastroparesis; K80.20 Calculus of gallbladder without cholecystitis without obstruction | CPT/HCPCS: 99212 ==

== ENCOUNTER 2025-03-17 11:03 | Outpatient (REF) | payer OTHER, SELFPAY ==
--- OUTSIDE RECORDS SUMMARY | 2025-03-17 12:08 | XMS_ITS | Encounter Summary ---
Author Organization [employer] Address 75 [facility] 7 [place] [address] Care Team Providers Care Interior Design Coordinator Name Role Phone Helen Marte MD Primary Care Provider [phone] Malka Travis PharmD Unavailable [phone] Reason for Visit * Reason Onset Date Comments Med Refill 11/17/2024 Encounter Details Date Type Department Care Team (Late st Contact Info) Description 11/17/2024 Telephone [facility] MEDICINE [address] [place] [address] Helen Marte MD 505 [place] [address] Med Refill Social History Tobacco Use Types [...] : LORazepam (Ativan) 0.5 MG tablet HYDROcodone-acetaminophen ([place]) 7.5-325 MG tablet To be sent to: [facility] - [place], [place] - [address] [place] [address] documented in this encounter Plan of Treatment Upcoming Encounters Date Type Department Care Team ([facility] st Contact Info) Description 04/20/2025 11:00 AM EDT Clinical Support [facility] MED & PEDS [address] [place] [address] Dora Matute RN 505 [place] [address] documented as of this encounter Visit Diagnoses Not on filedocumented in this encounter Additional Health Concerns Assessment Noted Time PHQ-9 Depression Total Score: 6 02/26/20 24 11:09 AM EDT documented as of this encounter Care Teams Interior Design Coordinator Relationship Specialty Start Date End Date Helen Marte MD 505 [place] [address] PCP - General Family Medicine 11/04/18 Malka Travis PharmD [address] [place] [address] Pharmacist Internal Medicine 01/14/25 documented as of this encounter
--- OUTSIDE RECORDS SUMMARY | 2025-03-17 12:08 | XMS_ITS | Encounter Summary ---
Author Organization [employer] Address 75 [facility] 7 [place] [address] Care Team Providers Care Art Tracer Name Role Phone Helen Marte MD Primary Care Provider [phone] Malka Travis PharmD Unavailable [phone] Reason for Visit * Reason Comments Med Refill Encounter Details Date Type Department Care Team ([facility] st Contact Info) Description 06/24/2024 Refill [facility] MEDICINE 230 [place] [address] Helen Marte MD 505 [place] [address] Back pain, unspecified back location, unspecified back [...] Care Team (Late st Contact Info) Description 04/20/2025 11:00 AM EDT Clinical Support [facility] CH[facility] MED & PEDS 505 [place] [address] Dora Matute, YOSHI 505 [place] [address] documented as of this encounter Visit Diagnoses Diagnosis Back pain, unspecified back location, unspecified back pain laterality, unspecified chronicity Anxiety state Anxiety state, unspecified documented in this encounter Additional Health Concerns Assessment Noted Time PHQ-9 Depression Total Score: 6 02/26/20 24 11:09 AM EDT documented as of this encounter Care Teams Art Tracer Relationship Specialty Start Date End Date Helen Marte MD 505 [place] [address] PCP - General Family Medicine 11/04/18 Malka Travis PharmD 230 [place] [address] Pharmacist Internal Medicine 01/14/25 documented as of this encounter
--- OUTSIDE RECORDS SUMMARY | 2025-03-17 12:08 | XMS_ITS | Encounter Summary ---
Author Organization [employer] Address 75 [facility] 7t [place] [address] Care Team Providers Care Duct Installer Name Role Phone Helen Marte MD Primary Care Provider [phone] Malka Travis PharmD Unavailable [phone] Encounter Details Date Type Department Care Team (Late st Contact Info) Description 04/30/2023 Orders Only [facility] MED & PEDS 505 [place] [address] Chioma Neely LPN Social History Tobacco Use [...] Description 04/20/2025 11:00 AM EDT Clinical Support [facility] MED & PEDS 505 [place] [address] Dora Matute, YOSHI 505 [place] [address] documented as of this encounter Visit Diagnoses Not on filedocumented in this encounter Additional Health Concerns Assessment Noted Time PHQ-9 Depression Total Score: 3 01/24/20 23 10:25 AM EDT documented as of this encounter Care Teams Duct Installer Relationship Specialty Start Date End Date Helen Marte MD [address] [place] [address] PCP - General Family Medicine 11/04/18 Malka Travis PharmD [address] [place] [address] Pharmacist Internal Medicine 01/14/25 documented as of this encounter
--- OUTSIDE RECORDS SUMMARY | 2025-03-17 12:08 | XMS_ITS | Encounter Summary ---
Author Organization [employer] Address [address] [place] [address] 7 [place] [address] Care Team Providers Care Manufacturer Agent Name Role Phone Helen Marte MD Primary Care Provider Malka Travis PharmD Unavailable [phone] Reason for Visit * Reason Onset Date Comments Results 02/04/2023 Encounter Details Date Type Department Care Team ([facility] st Contact Info) Description 02/04/2023 Telephone [facility] CHC MED & PEDS [address] [place], [place] [id number] Helen Marte MD 505 [place] [address] Results Social History Tobacco Use Types Packs/Day [...] she wants to. RN called pt via [employer] protocol manager ID# [id number] and inform of above message, pt verbalizes [...] - 02/04/2023 10:24 AM EDT Tc from [facility] with N requesting for pt to be call with her X-ray results. Please contact pt at [phone] documented in this encounter Plan of Treatment Upcoming Encounters Date Type Department Care Team ([facility] st Contact Info) Description 04/20/2025 11:00 AM EDT Clinical Support [facility] CHC MED & PEDS 505 [place] [address] Dora Matute RN 505 [place] [address] documented as of this encounter Visit Diagnoses Not on filedocumented in this encounter Additional Health Concerns Assessment Noted Time PHQ-9 Depression Total Score: 3 01/24/20 23 10:25 AM EDT documented as of this encounter Care Teams Manufacturer Agent Relationship Specialty Start Date End Date Helen Marte MD 505 [place] [address] PCP - General Family Medicine 11/04/18 Malka Travis, StefanoD [address] [place] [address] Pharmacist Internal Medicine 01/14/25 documented as of this encounter
--- OUTSIDE RECORDS SUMMARY | 2025-03-17 12:08 | XMS_ITS | Encounter Summary ---
Author Organization [employer] Address 75 [facility] 7t [place] [address] Care Team Providers Care Getterer Name Role Phone Helen Marte MD Primary Care Provider [phone] Malka Travis PharmD Unavailable [phone] Reason for Visit * Reason Onset Date Comments Reschedule 11/15/2023 Encounter Details Date Type Department Care Team (Late st Contact Info) Description 11/15/2023 Telephone [facility] MEDICINE 230 [place] [address] Helen Marte MD 505 [place] [address] Reschedule Social History Tobacco Use Types Packs/Day [...] clinic if she would like to.Acupuncture at [facility] could also help.Thanks * Telephone Encounter - Nuria Vail - 11/15/2023 12:05 PM EST 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 documented in this encounter Plan of Treatment Upcoming Encounters Date Type Department Care Team (Late st Contact Info) Description 04/20/2025 11:00 AM EDT Clinical Support [facility] MED & PEDS 505 [place] [address] Dora Matute, RN 505 [place] [address] documented as of this encounter Visit Diagnoses Not on filedocumented in this encounter Additional Health Concerns Assessment Noted Time PHQ-9 Depression Total Score: 3 01/24/20 23 10:25 AM EDT documented as of this encounter Care Teams Getterer Relationship Specialty Start Date End Date Helen Marte MD 505 [place] [address] PCP - General Family Medicine 11/04/18 Malka Travis PharmD 230 [place] [address] Pharmacist Internal Medicine 01/14/25 documented as of this encounter
--- OUTSIDE RECORDS SUMMARY | 2025-03-17 12:08 | XMS_ITS | Encounter Summary ---
Author Organization [employer] Address 75 [facility] 7 [place] [address] Care Team Providers Care Store Keeper Name Role Phone Helen Marte MD Primary Care Provider [phone] Malka Travis PharmD Unavailable [phone] Reason for Visit * Reason Onset Date Comments Med Refill 11/06/2022 Encounter Details Date Type Department Care Team (Late Contact Info) Description 11/06/2022 Telephone [facility] MEDICINE 230 [place] [address] Helen Marte MD 505 [place] [address] Med Refill Social History Tobacco Use Types [...] Department Care Team (Late Contact Info) Description 04/20/2025 11:00 AM EDT Clinical Support [facility] MED & PEDS 505 [place] [address] Dora Matute, YOSHI 505 [place] [address] documented as of this encounter Visit Diagnoses Not on filedocumented in this encounter Care Teams Store Keeper Relationship Specialty Start Date End Date Helen Marte MD 505 [place] [address] PCP - General Family Medicine 11/04/18 Malka Travis PharmD [address] [place] [address] Pharmacist Internal Medicine 01/14/25 documented as of this encounter
--- OUTSIDE RECORDS SUMMARY | 2025-03-17 12:08 | XMS_ITS | Encounter Summary ---
Author Organization [employer] Address 75 [facility] 7 [place] [address] Care Team Providers Care Geodesist Name Role Phone Helen Marte MD Primary Care Provider [phone] Malka Travis PharmD Unavailable [phone] Reason for Visit * Reason Comments Med Refill Encounter Details Date Type Department Care Team ([facility] st Contact Info) Description 09/17/2024 Refill [facility] MEDICINE 230 [place] [address] Helen Marte MD 505 [place] [address] Primary fibromyalgia syndrome; Anxiety state; Back pain, [...] Description 04/20/2025 11:00 AM EDT Clinical Support [facility] CHC MED & PEDS 505 [place] [address] Dora Matute, YOSHI 505 [place] [address] documented as of this encounter Visit Diagnoses Diagnosis Primary fibromyalgia syndrome Unspecified myalgia and myositis Anxiety state Anxiety state, unspecified Back pain, unspecified back location, unspecified back pain laterality, unspecified chronicity documented in this encounter Additional Health Concerns Assessment Noted Time PHQ-9 Depression Total Score: 6 02/26/20 24 11:09 AM EDT documented as of this encounter Care Teams Geodesist Relationship Specialty Start Date End Date Helen Marte MD 505 [place] [address] PCP - General Family Medicine 11/04/18 Malka Travis PharmD 230 [place] [address] Pharmacist Internal Medicine 01/14/25 documented as of this encounter
--- OUTSIDE RECORDS SUMMARY | 2025-03-17 12:08 | XMS_ITS | Encounter Summary ---
Author Organization [employer] Address 75 [facility] 7 [place] [address] Care Team Providers Care Film Laboratory Technician Name Role Phone Helen Marte MD Primary Care Provider [phone] Malka Travis PharmD Unavailable [phone] Reason for Visit * Reason Onset Date Comments Med Refill 09/17/2024 Encounter Details Date Type Department Care Team (Late st Contact Info) Description 09/17/2024 Telephone [facility] MEDICINE 230 [place] [address] Helen Marte MD 505 [place] [address] Med Refill Social History Tobacco Use Types [...] tomorrow LORazepam (Ativan) 0.5 MG tablet HYDROcodone-acetaminophen ([place]) 7.5-325 MG tablet * Telephone Encounter - Miguel Reina - 09/17/2024 9:38 AM EST TC from pt requesting medication refill. Medications needing refill : LORazepam (Ativan) 0.5 MG tablet HYDROcodone-acetaminophen ([place]) 7.5-325 MG tablet To be sent to: [facility] - [place] - 505 [facility] documented in this encounter Plan of Treatment Upcoming Encounters Date Type Department Care Team (Late st Contact Info) Description 04/20/2025 11:00 AM EDT Clinical Support [facility] CHC MED & PEDS [address] [place] [address] Dora Matute, RN [address] [place] [address] documented as of this encounter Visit Diagnoses Not on filedocumented in this encounter Additional Health Concerns Assessment Noted Time PHQ-9 Depression Total Score: 6 02/26/20 24 11:09 AM EDT documented as of this encounter Care Teams Film Laboratory Technician Relationship Specialty Start Date End Date Helen Marte MD 505 [place] [address] PCP - General Family Medicine 11/04/18 Malka Travis PharmD [address] [place] [address] Pharmacist Internal Medicine 01/14/25 documented as of this encounter
--- OUTSIDE RECORDS SUMMARY | 2025-03-17 12:08 | XMS_ITS | Encounter Summary ---
Author Organization [employer] Address 75 [facility] 7 [place] [address] Care Team Providers Care Shot Polisher Name Role Phone Helen Marte MD Primary Care Provider [phone] Malka Travis PharmD Unavailable [phone] Reason for Visit * Reason Onset Date Comments Med Refill 04/28/2024 Encounter Details Date Type Department Care Team (Late st Contact Info) Description 04/28/2024 Telephone [facility] MEDICINE 230 [place] [address] Helen Marte MD 505 [place] [address] Med Refill Social History Tobacco Use Types [...] medication refill. Medications needing refill : HYDROcodone-acetaminophen ([place]) 7.5-325 MG tablet and LORazepam (Ativan) 0.5 MG tablet To be sent to: [facility] - [place], [place] - 505 [facility] documented in this encounter Plan of Treatment Upcoming Encounters Date Type Department Care Team ([facility] st Contact Info) Description 04/20/2025 11:00 AM EDT Clinical Support [facility] MED & PEDS 505 [place] [address] Dora Matute RN 505 [place] [address] documented as of this encounter Visit Diagnoses Not on filedocumented in this encounter Additional Health Concerns Assessment Noted Time PHQ-9 Depression Total Score: 6 02/26/20 24 11:09 AM EDT documented as of this encounter Care Teams Shot Polisher Relationship Specialty Start Date End Date Helen Marte MD 505 [place] [address] PCP - General Family Medicine 11/04/18 Malka Travis PharmD 230 [place] [address] Pharmacist Internal Medicine 01/14/25 documented as of this encounter
--- OUTSIDE RECORDS SUMMARY | 2025-03-17 12:08 | XMS_ITS | Encounter Summary ---
Author Organization [employer] Address 75 [facility] 7t [place] [address] Care Team Providers Care Community Music Therapist Name Role Phone Helen Marte MD Primary Care Provider [phone] Malka Travis PharmD Unavailable [phone] Reason for Visit * Reason Comments Med Refill Encounter Details Date Type Department Care Team ([facility] st Contact Info) Description 12/11/2023 Refill [facility] MED & PEDS 505 [place], [place] [phone] Helen Marte MD 505 [place] [address] Back pain, unspecified back location, unspecified back [...] Description 04/20/2025 11:00 AM EDT Clinical Support [facility] MED & PEDS 505 [place] [address] Dora Matute RN 505 [place] [address] documented as of this encounter Visit Diagnoses Diagnosis Back pain, unspecified back location, unspecified back pain laterality, unspecified chronicity documented in this encounter Additional Health Concerns Assessment Noted Time PHQ-9 Depression Total Score: 3 01/24/20 23 10:25 AM EDT documented as of this encounter Care Teams Community Music Therapist Relationship Specialty Start Date End Date Helen Marte MD 505 [place] [address] PCP - General Family Medicine 11/04/18 Malka Travis PharmD 230 [place] [address] Pharmacist Internal Medicine 01/14/25 documented as of this encounter
--- OUTSIDE RECORDS SUMMARY | 2025-03-17 12:08 | XMS_ITS | Encounter Summary ---
Author Organization [employer] Address [address] [place] [address] 7 [place] [address] Care Team Providers Care Staff Nurse Anesthetist Name Role Phone Helen Marte MD Primary Care Provider [phone] Malka Travis PharmD Unavailable [phone] Encounter Details Date Type Department Care Team ([facility] Contact Info) Description 06/10/2023 Orders Only [facility] MED & PEDS 505 [place] [address] Helen Marte MD 505 [place] [address] Back pain, unspecified back location, unspecified back [...] Description 04/20/2025 11:00 AM EDT Clinical Support [facility] MED & PEDS 505 [place] [address] Dora Matute, RN 505 [place] [address] documented as of this encounter Visit Diagnoses Diagnosis Back pain, unspecified back location, unspecified back pain laterality, unspecified chronicity- Primary documented in this encounter Additional Health Concerns Assessment Noted Time PHQ-9 Depression Total Score: 3 01/24/20 23 10:25 AM EDT documented as of this encounter Care Teams Staff Nurse Anesthetist Relationship Specialty Start Date End Date Helen Marte MD 505 [place] [address] PCP - General Family Medicine 11/04/18 Malka Travis PharmD 230 [place] [address] Pharmacist Internal Medicine 01/14/25 documented as of this encounter
--- OUTSIDE RECORDS SUMMARY | 2025-03-17 12:08 | XMS_ITS | Encounter Summary ---
Author Organization [employer] Address 75 [facility] 7t [place] [address] Care Team Providers Care Felt Hooker Name Role Phone Helen Marte MD Primary Care Provider [phone] Malka Travis PharmD Unavailable [phone] Encounter Details Date Type Department Care Team (Late st Contact Info) Description 11/15/2023 Telephone [facility] MEDICINE 230 [place] [address] Helen Marte MD 505 [place] [address] Social History Tobacco Use Types Packs/Day Years [...] Description 04/20/2025 11:00 AM EDT Clinical Support [facility] MED & PEDS 505 [place] [address] Dora Matute, YOSHI 505 [place] [address] documented as of this encounter Visit Diagnoses Not on filedocumented in this encounter Additional Health Concerns Assessment Noted Time PHQ-9 Depression Total Score: 3 01/24/20 23 10:25 AM EDT documented as of this encounter Care Teams Felt Hooker Relationship Specialty Start Date End Date Helen Marte MD 505 [place] [address] PCP - General Family Medicine 11/04/18 Malka Travis PharmD 230 [place] [address] Pharmacist Internal Medicine 01/14/25 documented as of this encounter
--- OUTSIDE RECORDS SUMMARY | 2025-03-17 12:08 | XMS_ITS | Encounter Summary ---
Author Organization [employer] Address 75 [facility] 7t [place] [address] Care Team Providers Care Flume Tender Name Role Phone Helen aMrte MD Primary Care Provider [phone] Malka Travis PharmD Unavailable [phone] Encounter Details Date Type Department Care Team (Late st Contact Info) Description 09/13/2023 Abstract [facility] MEDICINE 230 [place] [address] Maritza Dinero Social History Tobacco Use Types [...] Description 04/20/2025 11:00 AM EDT Clinical Support [facility] CHC MED & PEDS [address] [place] [address] Dora Matute, YOSHI 505 [place] [address] documented as of this encounter Procedures Procedure [...] documented as of this encounter Care Teams Flume Tender Relationship Specialty Start Date End Date Helen Marte MD 505 [place] [address] PCP - General Family Medicine 11/04/18 Malka Travis PharmD 230 [place] [address] Pharmacist Internal Medicine 01/14/25 documented as of this encounter
--- OUTSIDE RECORDS SUMMARY | 2025-03-17 12:08 | XMS_ITS | Encounter Summary ---
Author Organization [employer] Address 75 [facility] 7t [place] [address] Care Team Providers Care Facing Cutting Machine Operator Name Role Phone Helen Marte MD Primary Care Provider [phone] Malka Travis PharmD Unavailable [phone] Reason for Visit * Reason Comments Med Refill Encounter Details Date Type Department Care Team ([facility] st Contact Info) Description 08/22/2023 Refill [facility] MEDICINE 230 [place] [address] Helen Marte MD 505 [place] [address] Primary fibromyalgia syndrome Social History Tobacco Use [...] Description 04/20/2025 11:00 AM EDT Clinical Support [facility] CHC MED & PEDS 505 [place] [address] Dora Matute, YOSHI 505 [place] [address] documented as of this encounter Visit Diagnoses Diagnosis Primary fibromyalgia syndrome Unspecified myalgia and myositis documented in this encounter Additional Health Concerns Assessment Noted Time PHQ-9 Depression Total Score: 3 01/24/20 23 10:25 AM EDT documented as of this encounter Care Teams Facing Cutting Machine Operator Relationship Specialty Start Date End Date Helen Marte MD 505 [place] [address] PCP - General Family Medicine 11/04/18 Malka Travis PharmD [address] [place] [address] Pharmacist Internal Medicine 01/14/25 documented as of this encounter
--- OUTSIDE RECORDS SUMMARY | 2025-03-17 12:08 | XMS_ITS | Encounter Summary ---
Author Organization [employer] Address 75 [facility] 7 [place] [address] Care Team Providers Care Rhythmic Gymnastics Coach Name Role Phone Helen Marte MD Primary Care Provider [phone] Malka Travis PharmD Unavailable [phone] Reason for Visit * Reason Onset Date Comments Med Refill 03/08/2025 Encounter Details Date Type Department Care Team (Late st Contact Info) Description 03/08/2025 Telephone [facility] MEDICINE [address] [place] [address] Helen Marte MD 505 [place] [address] Med Refill Social History Tobacco Use Types [...] * Telephone Encounter - Stef Cazares - 03/08/2025 10:07 AM EDT TC from pt requesting medication refill. Medications needing refill : HYDROcodone-acetaminophen ([place]) 7.5-325 MG tablet LORazepam (Ativan) 0.5 MG tablet [facility] be sent to: [facility] documented in this encounter Plan of Treatment Upcoming Encounters Date Type Department Care Team ([facility] st Contact Info) Description 04/20/2025 11:00 AM EDT Clinical Support [facility] MED & PEDS 505 [place] [address] Dora Matute RN 505 [place] [address] documented as of this encounter Visit Diagnoses Not on filedocumented in this encounter Additional Health Concerns Assessment Noted Time PHQ-9 Depression Total Score: 7 12/17/19 25 1:03 PM EST documented as of this encounter Care Teams Rhythmic Gymnastics Coach Relationship Specialty Start Date End Date Helen Marte MD 505 [place] [address] PCP - General Family Medicine 11/04/18 Malka Travis, PharmD 230 [place] [address] Pharmacist Internal Medicine 01/14/25 documented as of this encounter
--- OUTSIDE RECORDS SUMMARY | 2025-03-17 12:08 | XMS_ITS | Encounter Summary ---
Author Organization [employer] Address 75 [facility] 7t [place] [address] Care Team Providers Care Food Service Aide Name Role Phone Helen Marte MD Primary Care Provider [phone] Malka Travis PharmD Unavailable Reason for Visit * Reason Comments Med Refill Encounter Details Date Type Department Care Team (Late st Contact Info) Description 12/11/2023 Refill [facility] MEDICINE 230 [place] [address] Pacheco Green MD 505 [place] [address] Back pain, unspecified back location, unspecified back [...] Description 04/20/2025 11:00 AM EDT Clinical Support [facility] MED & PEDS 505 [place] [address] Dora Matute RN 505 [place] [address] documented as of this encounter Visit Diagnoses Diagnosis Back pain, unspecified back location, unspecified back pain laterality, unspecified chronicity documented in this encounter Additional Health Concerns Assessment Noted Time PHQ-9 Depression Total Score: 3 01/24/20 23 10:25 AM EDT documented as of this encounter Care Teams Food Service Aide Relationship Specialty Start Date End Date Helen Marte MD 505 [place] [address] PCP - General Family Medicine 11/04/18 Malka Travis PharmD [address] [place] [address] Pharmacist Internal Medicine 01/14/25 documented as of this encounter
--- OUTSIDE RECORDS SUMMARY | 2025-03-17 12:08 | XMS_ITS | Encounter Summary ---
Author Organization [employer] Address 75 [facility] 7t [place] [address] Care Team Providers Care Account Development Associate Name Role Phone Helen Marte MD Primary Care Provider [phone] Malka Travis PharmD Unavailable [phone] Reason for Visit * Reason Comments Med Refill Encounter Details Date Type Department Care Team ([facility] st Contact Info) Description 01/30/2024 Refill [facility] MED & PEDS 505 [place], [place] [phone] Helen Marte MD 505 [place] [address] Back pain, unspecified back location, unspecified back [...] [facility] 505 [place] [address] Dora Matute, YOSHI 505 [place] [address] documented as of this encounter Visit Diagnoses Diagnosis Back pain, unspecified back location, unspecified back pain laterality, unspecified chronicity Anxiety state Anxiety state, unspecified documented in this encounter Additional Health Concerns Assessment Noted Time PHQ-9 Depression Total Score: 3 01/24/20 23 10:25 AM EDT documented as of this encounter Care Teams Account Development Associate Relationship Specialty Start Date End Date Helen Marte MD 505 [place] [address] PCP - General Family Medicine 11/04/18 Malka Travis PharmD 230 [place] [address] Pharmacist Internal Medicine 01/14/25 documented as of this encounter
--- OUTSIDE RECORDS SUMMARY | 2025-03-17 12:08 | XMS_ITS | Encounter Summary ---
Author Organization [employer] Address [address] [place] [address] 7 [place] [address] Care Team Providers Care Associate Professor Of Criminal Justice Name Role Phone Helen Marte MD Primary Care Provider [phone] Malka Travis PharmD Unavailable [phone] Encounter Details Date Type Department Care Team (Late st Contact Info) Description 11/16/2022 Orders Only [facility] MED & PEDS 505 [place] [address] Chioma Neely LPN Social History Tobacco Use [...] 04/20/2025 11:00 AM EDT Clinical Support [facility] MED & PEDS 505 [place] [address] Dora Matute, YOSHI 505 [place] [address] documented as of this encounter Visit Diagnoses Not on filedocumented in this encounter Care Teams Associate Professor Of Criminal Justice Relationship Specialty Start Date End Date Helen Marte MD 505 [place] [address] PCP - General Family Medicine 11/04/18 Malka Travis, Afshin 230 [place] [address] Pharmacist Internal Medicine 01/14/25 documented as of this encounter
--- OUTSIDE RECORDS SUMMARY | 2025-03-17 12:08 | XMS_ITS | Encounter Summary ---
Author Organization [employer] Address 75 [facility] 7t [place] [address] Care Team Providers Care Business Development Manager Name Role Phone Helen Marte MD Primary Care Provider [phone] Malka Travis PharmD Unavailable [phone] Reason for Visit * Reason Onset Date Comments Med Refill 01/29/2023 Encounter Details Date Type Department Care Team (Late st Contact Info) Description 01/29/2023 Telephone [facility] MEDICINE 230 [place] [address] Helen Marte MD 505 [place] [address] Med Refill Social History Tobacco Use Types [...] Upcoming Encounters Date Type Department Care Team ([facility] st Contact Info) Description 04/20/2025 11:00 AM EDT Clinical Support [facility] MED & PEDS 505 [place] [address] Dora Matute, YOSHI 505 [place] [address] documented as of this encounter Visit Diagnoses Not on filedocumented in this encounter Additional Health Concerns Assessment Noted Time PHQ-9 Depression Total Score: 3 01/24/20 23 10:25 AM EDT documented as of this encounter Care Teams Business Development Manager Relationship Specialty Start Date End Date Helen Marte MD 505 [place] [address] PCP - General Family Medicine 11/04/18 Malka Travis PharmD 230 [place] [address] Pharmacist Internal Medicine 01/14/25 documented as of this encounter
--- OUTSIDE RECORDS SUMMARY | 2025-03-17 12:08 | XMS_ITS | Encounter Summary ---
Author Organization [employer] Address [address] [facility] 7 [place] [address] Care Team Providers Care Shaker Operator Name Role Phone Helen Marte MD Primary Care Provider [phone] Malka Travis PharmD Unavailable [phone] Reason for Visit * Reason Comments Med Refill Encounter Details Date Type Department Care Team ([facility] st Contact Info) Description 04/16/2024 Refill [facility] 505 [place], [place] [phone] Helen Marte MD 505 [place] [address] Social History Tobacco Use Types Packs/Day Years [...] Description 04/20/2025 11:00 AM EDT Clinical Support [facility] 505 [place] [address] Dora Matute RN 505 [place] [address] documented as of this encounter Visit Diagnoses Not on filedocumented in this encounter Additional Health Concerns Assessment Noted Time PHQ-9 Depression Total Score: 6 02/26/20 24 11:09 AM EDT documented as of this encounter Care Teams Shaker Operator Relationship Specialty Start Date End Date Helen Marte MD 505 [place] [address] PCP - General Family Medicine 11/04/18 Malka Travis PharmD [address] [place] [address] Pharmacist Internal Medicine 01/14/25 documented as of this encounter
--- OUTSIDE RECORDS SUMMARY | 2025-03-17 12:08 | XMS_ITS | Encounter Summary ---
Author Organization [employer] Address [address] [facility] 7t [place] [address] Care Team Providers Care Switchboard Manager Name Role Phone Helen Marte MD Primary Care Provider [phone] Malka Travis PharmD Unavailable [phone] Reason for Visit * Reason Comments Med Refill Encounter Details Date Type Department Care Team ([facility] st Contact Info) Description 10/19/2024 Refill [facility] MED & PEDS 505 [place], [place] [phone] Connie Yepez MD 505 [place] [address] Anxiety state; Back pain, unspecified back location, [...] Description 04/20/2025 11:00 AM EDT Clinical Support [facility] MED & PEDS 505 [place] [address] Dora Matute, YOSHI 505 [place] [address] documented as of this encounter Visit Diagnoses Diagnosis Anxiety state Anxiety state, unspecified Back pain, unspecified back location, unspecified back pain laterality, unspecified chronicity documented in this encounter Additional Health Concerns Assessment Noted Time PHQ-9 Depression Total Score: 6 02/26/20 24 11:09 AM EDT documented as of this encounter Care Teams Switchboard Manager Relationship Specialty Start Date End Date Helen Marte MD 505 [place] [address] PCP - General Family Medicine 11/04/18 Malka Travis PharmD 230 [place] [address] Pharmacist Internal Medicine 01/14/25 documented as of this encounter
--- OUTSIDE RECORDS SUMMARY | 2025-03-17 12:08 | XMS_ITS | Encounter Summary ---
Author Organization [employer] Address [address] [facility] 7t [place] [address] Care Team Providers Care In Store Banker Name Role Phone Helen Marte MD Primary Care Provider [phone] Malka Travis PharmD Unavailable [phone] Reason for Visit * Reason Comments Med Refill Encounter Details Date Type Department Care Team ([facility] st Contact Info) Description 09/03/2023 Refill [facility] MED & PED[facility] 505 [place], [place] [phone] Helen Marte MD 505 [place] [address] Back pain, unspecified back location, unspecified back [...] Description 04/20/2025 11:00 AM EDT Clinical Support [facility] 505 [place] [address] Dora Matute RN 505 [place] [address] documented as of this encounter Visit Diagnoses Diagnosis Back pain, unspecified back location, unspecified back pain laterality, unspecified chronicity documented in this encounter Additional Health Concerns Assessment Noted Time PHQ-9 Depression Total Score: 3 01/24/20 23 10:25 AM EDT documented as of this encounter Care Teams In Store Banker Relationship Specialty Start Date End Date Helen Marte MD 505 [place] [address] PCP - General Family Medicine 11/04/18 Malka Travis PharmD 230 [place] [address] Pharmacist Internal Medicine 01/14/25 documented as of this encounter
--- OUTSIDE RECORDS SUMMARY | 2025-03-17 12:08 | XMS_ITS | Encounter Summary ---
Author Organization [employer] Address [address] [facility] 7 [place] [address] Care Team Providers Care Dried Yeast Supervisor Name Role Phone Helen Marte MD Primary Care Provider [phone] Malka Travis PharmD Unavailable [phone] Reason for Visit * Reason Comments Med Refill Encounter Details Date Type Department Care Team ([facility] st Contact Info) Description 05/26/2024 Refill [facility] MED & PEDS 505 [place], [place] [phone] Helen Marte MD 505 [place] [address] Back pain, unspecified back location, unspecified back [...] Description 04/20/2025 11:00 AM EDT Clinical Support [facility] MED [facility]EDS 505 [place] [address] Dora Matute, YOSHI 505 [place] [address] documented as of this encounter Visit Diagnoses Diagnosis Back pain, unspecified back location, unspecified back pain laterality, unspecified chronicity Anxiety state Anxiety state, unspecified documented in this encounter Additional Health Concerns Assessment Noted Time PHQ-9 Depression Total Score: 6 02/26/20 24 11:09 AM EDT documented as of this encounter Care Teams Dried Yeast Supervisor Relationship Specialty Start Date End Date Helen Marte MD 505 [place] [address] PCP - General Family Medicine 11/04/18 Malka Travis PharmD 230 [place] [address] Pharmacist Internal Medicine 01/14/25 documented as of this encounter
--- OUTSIDE RECORDS SUMMARY | 2025-03-17 12:08 | XMS_ITS | Encounter Summary ---
Author Organization [employer] Address [address] [facility] 7 [place] [address] Care Team Providers Care Government Service Executive Name Role Phone Helen Maret MD Primary Care Provider [phone] Malka Travis PharmD Unavailable [phone] Reason for Visit * Reason Onset Date Comments Med Refill 12/15/2024 Encounter Details Date Type Department Care Team (Late st Contact Info) Description 12/15/2024 Telephone [facility] MEDICINE 230 [place] [address] Helen Marte MD 505 [place] [address] Med Refill Social History Tobacco Use Types [...] AM EDT documented as of this encounter Functional Status * Over the past 2 weeks, how often have you been bothered by any of the following problems? Question Answer Date of Assessment Author Patient Health Questionnaire -2 Score 2 12/17/2024 1:03 PM Gideon Mccauley [place] * Little interest or pleasure in doing things Answer Date of Assessment Author Not at all 12/17/2024 1:03 PM Kasey Mccauley [place] * Feeling down, depressed, or hopeless Answer Date of Assessment Author More than half the days 12/17/2024 1:03 PM Kasey [place] * Trouble falling or staying asleep, or sleeping too much Answer Date of Assessment Author More than half the days 12/17/2024 1:03 PM Kasey [place] * Feeling tired or having little energy Answer Date of Assessment Author Several days 12/17/2024 1:03 PM Kasey Mccauley [place] * Poor appetite or overeating Answer Date of Assessment Author More than half the days 12/17/2024 1:03 PM Kasey [place] * Feeling bad about yourself - or that you are a failure or have let yourself or your family down Answer Date of Assessment Author Not at all 12/17/2024 1:03 PM Kasey Mccauley [place] * Trouble concentrating on things, such as reading the newspaper or watching television Answer Date of Assessment Author Not at all 12/17/2024 1:03 PM Kasey Mccauley [place] * Moving or speaking so slowly that other people could have noticed? Or the opposite - being so fidgety or restless that you have been moving around a lot more than usual. Answer Date of Assessment Author Not at all 12/17/2024 1:03 PM Kasey Mccauley [place] * Thoughts that you would be better off or hurting yourself in some way Answer Date of Assessment Author Not at all 12/17/2024 1:03 PM Kasey Mccauley [place] * Patient Health Questionnaire-9 Score Answer Date of Assessment Author 7 12/17/2024 1:03 PM Kasey Mccauley [place] documented as of this encounter Miscellaneous Notes * Telephone Encounter - Mali Dawkisn - 12/15/2024 1:36 PM EST TC from pt requesting medication refill. Medications needing refill : - LORazepam (Ativan) 0.5 MG tablet - HYDROcodone-acetaminophen ([place]) 7.5-325 MG tablet To be sent to: [facility] documented in this encounter Plan of Treatment Upcoming Encounters Date Type Department Care Team ([facility] st Contact Info) Description 04/20/2025 11:00 AM EDT Clinical Support [facility] MED & PEDS 505 [place] [address] Dora Matute RN 505 [place] [address] documented as of this encounter Visit Diagnoses Not on filedocumented in this encounter Additional Health Concerns Assessment Noted Time PHQ-9 Depression Total Score: 6 02/26/20 24 11:09 AM EDT documented as of this encounter Care Teams Government Service Executive Relationship Specialty Start Date End Date Helen Marte MD 505 [place] [address] PCP - General Family Medicine 11/04/18 Malka Travis, PharmD 230 [place] [address] Pharmacist Internal Medicine 01/14/25 documented as of this encounter
--- OUTSIDE RECORDS SUMMARY | 2025-03-17 12:08 | XMS_ITS | Encounter Summary ---
Author Organization [employer] Address [address] [facility] 7 [place] [address] Care Team Providers Care Newspaper Delivery Counselor Name Role Phone Helen Marte MD Primary Care Provider [phone] Malka Travis PharmD Unavailable [phone] Encounter Details Date Type Department Care Team (Late st Contact Info) Description 09/18/2024 Orders Only [facility] MED & PEDS 505 [place], [place] [phone] NegronPacheco Noel MD 505 [place] [address] Social History Tobacco Use Types Packs/Day Years [...] 04/20/2025 11:00 AM EDT Clinical Support [facility] 505 [place] [address] Dora Matute, YOSHI 505 [place] [address] documented as of this encounter Visit Diagnoses Not on filedocumented in this encounter Additional Health Concerns Assessment Noted Time PHQ-9 Depression Total Score: 6 02/26/20 24 11:09 AM EDT documented as of this encounter Care Teams Newspaper Delivery Counselor Relationship Specialty Start Date End Date Helen Marte MD 505 [place] [address] PCP - General Family Medicine 11/04/18 Malka Travis PharmD 230 [place] [address] Pharmacist Internal Medicine 01/14/25 documented as of this encounter
--- OUTSIDE RECORDS SUMMARY | 2025-03-17 12:08 | XMS_ITS | Encounter Summary ---
Author Organization [employer] Address [address] [facility] 7t [place] [address] Care Team Providers Care Computer System Validation Specialist Name Role Phone Helen Marte MD Primary Care Provider Malka Travis PharmD Unavailable [phone] Reason for Visit * Reason Comments Med Refill Encounter Details Date Type Department Care Team (Late st Contact Info) Description 01/30/2023 Refill [facility] MEDICINE 230 [place] [address] Helen Marte MD 505 [place] [address] Social History Tobacco Use Types Packs/Day Years [...] Description 04/20/2025 11:00 AM EDT Clinical Support [facility] MED [facility]EDS 505 [place] [address] Dora Matute, RN 505 [place], [place] [phone] documented as of this encounter Visit Diagnoses Not on filedocumented in this encounter Additional Health Concerns Assessment Noted Time PHQ-9 Depression Total Score: 3 01/24/20 23 10:25 AM EDT documented as of this encounter Care Teams Computer System Validation Specialist Relationship Specialty Start Date End Date Helen Marte MD 505 [place] [address] PCP - General Family Medicine 11/04/18 Malka Travis PharmD [address] [place] [address] Pharmacist Internal Medicine 01/14/25 documented as of this encounter
--- OUTSIDE RECORDS SUMMARY | 2025-03-17 12:08 | XMS_ITS | Clinical Summary ---
Author Organization [employer] Address [address] [facility] 7t [place] [address] Care Team Providers Care Base Engineer Name Role Phone Helen Marte MD Primary Care Provider Malka Travis PharmD Unavailable [phone] Allergies Active Allergy Reactions Criticality Noted Date [...] BEDTIME 12/10/19 23 Active TRUEplus Lancets 33G misc TEST BLOOD SUGAR THREE TIMES DAILY 100 [...] EVENING 90 tablet 3 09/25/20 24 Active cholecalciferol VITAMIN D (Vitamin D-3) 50 MCG (1999 UT) capsule TAKE ONE CAPSULE TWICE DAILY IN THE MORNING AND AT BEDTIME 180 capsule 3 10/19/20 24 Active metFORMIN (Glucophage) 500 MG tablet TAKE ONE TABLET TWICE DAILY WITH BREAKFAST AND SUPPER 60 tablet 11 11/17/19 25 Active metoprolol tartrate (Lopressor) 100 [...] 12/17/19 25 Active Blood Glucose Monitoring Suppl (Weekdone Lite) w/Device kit TEST BLOOD SUGAR TWICE DAILY 1 kit 12/23/19 25 Active Tirzepatide (Mounjaro) 7.5 MG/0.5ML solution auto-injector Inject 7.5 mg under the skin 1 (one) time per week. 2 mL 2 01/15/20 25 Active albuterol 108 (90 Base) MCG/ACT inhalerIndicati ons:Mild intermittent asthma, unspecified whether complicated Inhale 1-2 puffs every 6 hours as needed for shortness of breath 18 g 1 01/15/20 25 Active ketoconazole (NIZOral) 2 % cream APPLY TO THE AFFECTED AREA(S) EVERY MORNING 60 g 3 02/09/20 25 Active traZODone (Desyrel) 100 MG tabletIndicatio ns:Chronic recurrent major depressive disorder (CMS/HCC) TAKE ONE TABLET EVERY NIGHT AT BEDTIME 30 tablet 5 03/01/20 25 Active HYDROcodone-sriram taminophen ([place]) 7.5-325 MG tabletIndicatio ns:Back pain, unspecified back location, unspecified back pain laterality, unspecified chronicity Take 1 tablet by mouth every 8 (eight) hours if needed for severe pain. 84 tablet 03/08/20 25 Active LORazepam (Ativan) 0.5 MG tabletIndicatio ns:Anxiety state TAKE ONE TABLET EVERY DAY NEEDED FOR ANXIETY 28 tablet 03/08/20 25 Active traZODone (Desyrel) 100 MG tabletIndicatio ns:Chronic recurrent major depressive disorder (CMS/HCC) TAKE ONE TABLET EVERY NIGHT AT BEDTIME 30 tablet 3 11/17/19 25 2024 Discontinued LORazepam (Ativan) 0.5 MG tabletIndicatio ns:Anxiety state TAKE ONE TABLET EVERY DAY NEEDED FOR ANXIETY 28 tablet 02/09/20 25 2024 Discontinued(R eorder (will not trigger notification to Pharmacy)) HYDROcodone-sriram taminophen ([place]) 7.5-325 MG tabletIndicatio ns:Back pain, unspecified back location, unspecified back pain laterality, unspecified chronicity Take 1 tablet by mouth every 8 (eight) hours if needed for severe pain. 84 tablet 02/09/20 25 2024 Discontinued(R eorder (will not trigger notification to Pharmacy)) Active Problems Problem Noted Date Diagnosed Date Chronic coccygeal pain 02/11/2025 Long-term current use of opiate analgesic 2024 [...] organization. Date Type Department Care Team Description 03/08/2025 Refill [facility] MED & PEDS [address] [place] [address] Dora Matute RN Back pain, unspecified back location, unspecified back pain laterality, unspecified chronicity; Anxiety state 03/08/2025 Telephone [facility] [address] [place] [address] Helen Marte MD Med Refill 03/03/2025 Orders Only [facility] [address] [place] [address] Pacheco Green MD Irritable bowel syndrome with constipation (Primary Dx) 03/01/2025 Refill [facility] P[facility] [address] [place] [address] Pacheco Green MD Chronic recurrent major depressive disorder (CMS/HCC) 02/11/2025 11:00 AM EDT Office Visit [facility] [address] [place] [address] Helen Marte MD Diabetes mellitus without complication (CMS/HCC) (Primary Dx); Presence of permanent cardiac pacemaker; Primary dilated cardiomyopathy (CMS/HCC); Chronic coccygeal pain 02/11/2025 Travel 02/10/2025 Telephone [facility] [address] [place] [address] Helen Marte MD Chart Prep 02/08/2025 Refill [facility] [address] [place] [address] Helen Marte MD Anxiety state; Back pain, unspecified back location, unspecified back pain laterality, unspecified chronicity 02/07/2025 Refill [facility] [address] [place] [address] Helen Marte MD 02/01/2025 10:30 AM EDT Telemedicine [facility] [address] [place] [address] Dora Matute RN Long-term current use of opiate analgesic 02/01/2025 Telephone [facility] [address] [place] [address] Dora Matute RN 02/01/2025 Travel 01/15/2025 Telephone [facility] [address] [place] [address] Helen Marte MD Durable Medical Equipment 01/14/2025 Travel 01/11/2025 Refill [facility] [address] [place] [address] Helen Marte MD Back pain, unspecified back location, unspecified back pain laterality, unspecified chronicity; Anxiety state 01/11/2025 Refill [facility] [address] [place] [address] Helen Marte MD Back pain, unspecified back location, unspecified back pain laterality, unspecified chronicity; Anxiety state 12/23/2024 Refill [facility] [address] [place] [address] Helen Marte MD from Last 3 Months Immunizations Immunization Administration Dates Next Due Influenza injectable quadriv [...] Sign Reading Time Taken Comments Blood Pressure 119/73 02/11/2025 11:19 AM EDT Pulse 84 02/11/2025 11:19 AM EDT Temperature 36.7 ??C (98 ??F) 02/11/2025 11:19 AM EDT Respiratory Rate 20 02/11/2025 11:19 AM EDT Oxygen Saturation 95% 02/11/2025 11:19 AM EDT Inhaled Oxygen Concentration - - Weight 89.4 kg (197 lb) 02/11/2025 11:19 AM EDT Height 165.1 cm (5' 5 ) 02/11/2025 11:19 AM EDT Body Mass Index 32.78 02/11/2025 11:19 AM EDT Plan of Treatment Upcoming Encounters Date Type Department Care Team (Late st Contact Info) Description 04/20/2025 11:00 AM EDT Clinical Support [facility] P[facility] [address] [place] [address] Dora Matute, YOSHI 505 [place] [address] Health Maintenance Due Date Last Done Comments [...] 12/05 COVID-19 Vaccine ( season) 2024 Diabetes: Foot Exam 02/25/2025 02/26/2024, 02/26/2024, 02/26/2024, Additional history exists Diabetes: Urine Protein Screening 02/25/2025 02/26/2024, 08/21/2022, 12/07/2020, Additional history exists Lipid Panel 02/25/2025 02/26/2024, 08/04, 12/07/2020 Diabetes: Hemoglobin A1C 05/13/2025 025, 08/25/2024, 02/26/2024, Additional history exists Dental X-Ray: Bitewings 08/13/2025 08/12/20 24, 04/22/2019, 03/02/2019, Additional history exists Alcohol/Substance Use Screening 12/17/2025 12/17/2024 Depression Screening 12/17/2025 12/17/2024, 12/17/19 SDOH Screening 12/17/2025 12/17/2024 Tobacco Screening 02/11/2026 02/11/2025 Mammogram 09/25/2026 09/25/2024, 11/05, 11/05/2017 Colonoscopy 10/20/2028 [...] Name Priority Date/Time Associated Diagnosis Comments POCT GLYCATED HEMOGLOBIN, TOTAL Routine 02/11/2025 1:28 PM EDT Diabetes mellitus without complication (CMS/HCC) POCT GLUCOSE Routine 02/11/2025 1:28 PM EDT Diabetes mellitus without complication (CMS/HCC) BI MAMMOGRAM SCREENING TOMOSYNTHESIS BILATERAL Routine 09/25/2024 12:00 PM EST Breast cancer screening by mammogram BITEWING - SINGLE RADIOGRAPHIC IMAGE Routine 08/12/2024 [...] Recently Relevant to Health Maintenance Results * (ABNORMAL) POCT HGB A1C (02/11/2025 1:28 PM EDT) Hemoglobin A1C 7.4(A) 4.0 - 6.0 % QC Media Lot # [id number] Lot# Expiration Date Blood 02/11/2025 1:28 PM EDT Helen Marte MD POINT OF CARE TEST ENTER/EDIT ORDERABLES Final Result * POCT Glucose (02/11/2025 1:28 PM EDT) Glucose Blood, POC 161 60 - 200 mg/dL QC Media Lot # [id number] Lot# Expiration Date Blood Capillary blood specimen / Unknown 02/11/2025 1:28 PM EDT Helen Marte MD POINT OF CARE TEST ENTER/EDIT ORDERABLES Final Result * BI Mammogram Screening Tomosynthesis Bilateral (09/25/2024 12:00 PM EST) Anatomical Region Laterality Modality Breast Bilateral Mammography 09/25/2024 12:0 0 PM EST Narrative 10/06/2024 12:50 PM EST ? [facility] [place] ? [address] ?[place] [address] ? Mammography Report ? Signed ? Patient: Louise,Reba ?MR#: [id number] ?? 2 ? : 1965 ?Acct:[id number] ? Age/Sex: 59 / F ?ADM Date: 11/22/24 ? Loc: HO.MAMMO ? Attending Dr: Helen Marte MD ? Ordering Physician: Helen Marte MD ?Results: 2Be ?? nign Findings ? Date of Service: 09/25/24 ?Follow Up: 1 Year From Orig ?? inal Mammogram ? Procedure(s): MM tomosynthesis screening BI ?? Accession Number(s): [id number] ? cc: Helen Marte MD ? EXAMINATION: [...] DD/ 1200 ? TD/TT: 09/25/24 1218 ? Size Tester: ? Procedure Note Donaubreykylahmoisester, Image - 10/06/2024 [facility] [address] [place] [address] Mammography Report Signed Patient: Carisa Louise#: [id number] 2 : 1965Acct:[id number] Age/Sex: 59 / FADM Date: 09/25/24 Loc: HO.MAMMO Attending Dr: Helen Marte MD Ordering Physician: Helen Marte MDResults: 2Be nign Findings Date of Service: 09/25/24Follow Up: 1 Year From Orig ina Mammogram Procedure(s): MM tomosynthesis screening BI Accession Number(s): [id number] cc: Helen Marte MD EXAMINATION: MM SCREENING [...] by: María Smalls DO 10/06/2024 12:47 PM EST RP Dictated By: María Smalls DO Signed By: <Electronically signed by María Smalls DO in OV> 10/06/24 1247 DD/ 1200 TD/TT: 09/25/24 1218 Size Tester: us Helen Marte MD IMG BI PROCEDURES Final Resul t * Albumin, Random Urine W/Creatinine (02/26/2024 11:30 AM EDT) Creatinine, Urine 309.93 mg/dL [facility] Microalbumin Urine 49.0 mg/L [facility] Microalbum Creatinine Ratio Ur 15.8 <30 ug/mg cr [facility] Comment:Albumin/Creatinine R atio Reference Ranges: Normal: < 30 ug/mg creatinine Microalbuminuria: 30 - 300 ug/mg creatinineClinical Albuminuria: > 300 ug/mg creatinine Urine (Urine, Random) 02/26/2024 11:30 AM EDT 02/26/2024 2:46 PM EDT us Helen Marte MD LAB URINE ORDERABLES Final Re sult [facility] [address] [place] [phone] * (ABNORMAL) Lipid Panel, Standard (02/26/2024 11:24 AM EDT) Triglycerides 166(H) <150 mg/dL [facility] Comment:Desirable Triglyceri de: less than 150 mg/dLBorderline High Triglyceride 150-199 mg/dLHigh Triglyceride: 200-499 mg/dLVery High Triglyceride: greater than or equal to 5OO mg/dL Cholesterol 151 <200 mg/dL [facility] Comment:Desirable Cholestero l: less than 200 mg/dLBorderline High Cholesterol: 200-239 mg/dLHigh Cholesterol: greater than 239 mg/dL LDL Cholesterol Calculated 78 <100 mg/dL [facility] Comment:Desirable LDL: less than 100 mg/dLNear Optimal/Above Optimal LDL: 110- 129 mg/dLBorderline High LDL: 130-159 mg/dLHigh LDL: 160-189 mg/dLVery High LDL: greater than or equal to 190 mg/dL HDL Cholesterol 40(L) >40 mg/dL [facility] Comment:Desirable HDL: great er than 40 mg/dL Note: This HDL assay may give artificially low results in patients with liver disease. Blood Venous blood specimen / Unknown 02/26/2024 11:24 AM EDT 02/26/2024 2:49 PM EDT Helen Marte MD LAB BLOOD ORDERABLES Final Re sult [facility] [address] [place] [phone] * Colonoscopy (10/20/2018) Colonoscopy Normal Normal Narrative Maritza Dinero - 10/20/2018 Recommended 10 year follow up Historical Provider HEALTH MAINTENANCE Final Result from Last 3 Months or Most Recently Relevant to Health Maintenance Insurance [id number] < 65 [place] [id number] Care Teams Base Engineer Relationship Specialty Start Date End Date Helen Marte MD [address] [place] [address] PCP - General Family Medicine 11/04/18 Malka Travis, StefanoD [address] [place] [address] Pharmacist Internal Medicine 01/14/25
--- OUTSIDE RECORDS SUMMARY | 2025-03-17 12:08 | XMS_ITS | Encounter Summary ---
Author Organization [employer] Address [address] [place] [address] 7 [place] [address] Care Team Providers Care Arson Investigator Name Role Phone Helen Marte MD Primary Care Provider [phone] Malka Travis PharmD Unavailable [phone] Encounter Details Date Type Department Care Team ([facility] Contact Info) Description 12/19/2022 Telephone [facility] P[facility] [address] [place] [address] Helen Marte MD [address] [place] [address] Social History Tobacco Use Types Packs/Day Years [...] Upcoming Encounters Date Type Department Care Team ([facility] Contact Info) Description 04/20/2025 11:00 AM EDT Clinical Support [facility] [address] [place] [address] Dora Matute RN 505 [place], [place] [phone] documented as of this encounter Visit Diagnoses Not on filedocumented in this encounter Care Teams Arson Investigator Relationship Specialty Start Date End Date Helen Marte MD [address] [place] [address] PCP - General Family Medicine 11/04/18 Malka Travis, StefanoD [address] [place] [address] Pharmacist Internal Medicine 01/14/25 documented as of this encounter
[2025-03-17 15:30] LABS: Alanine Aminotransferase 20 U/L (0-31); Albumin Level 3.7 g/dL (3.5-5.0); Anion Gap 13 (12-20); Aspartate Amino Transferase 24 U/L (5-31); Bilirubin Total 0.4 mg/dL (0.0-1.0); Blood Urea Nitrogen 17 mg/dL (9-16); Calcium 9.1 mg/dL (8.4-10.2); Carbon Dioxide 28 mmol/L (22-29); Chloride 105 mmol/L (96-108); Cholesterol 134 mg/dL (<200); Estimated Glomerular Filt Rate 48; Glucose Random 180 mg/dL (60-115); HDL Cholesterol 45 mg/dL (>40); LDL Cholesterol Calculated 71 mg/dL (<100); Potassium 3.7 mmol/L (3.3-5.1); Sodium 142 mmol/L (135-145); Total Protein 6.1 g/dL (6.5-8.0); Triglycerides 90 mg/dL (<150)
[2025-03-17 15:40] LABS: Vitamin B12 446 pg/mL (200-900)
[2025-03-17 15:46] LABS: Creatinine Urine 92.33 mg/dL; Microalbumin Urine < 5.0 mg/L
[2025-03-17 16:51] LABS: Alkaline Phosphatase 72 U/L (39-117)
== END 2025-03-17 11:04 | disposition home or self-care (01) ==
LOC: HO.CHCLDS 11:03
PROVIDERS: Visit Provider Pediatrics
DX: E11.9 Type 2 diabetes mellitus without complications (principal)
CPT/HCPCS: 36415; 80053; 80061; 82043; 82570; 82607

== ENCOUNTER 2025-08-03 11:59 | Outpatient (AMB) | payer OTHER, SELFPAY ==
--- NOTE | 2025-08-03 12:02 | A.OFFVIS_ITS ---
Vital Signs 08/03/25 12:06 Height 5 ft 6 in Weight 182 lb 15.739 oz BMI 29.5 BP 114/71 Blood Pressure Location Lt brachial Position Sitting Pulse 87 Intake Visit Reasons: CIC, GERD, SIBO 6 mo f/u Intake Note: Reba presents in the office as a follow up for CIC, SIBO and GERD. CC: States that she is feeling okay but still having the reflux and the constipation. Superintendent [employer] Required: No Allergies lamotrigine (LAMOTRIGINE) Allergy (Unknown, Verified 08/23/23 13:07) SEVERE RASH sumatriptan (SUMATRIPTAN) Allergy (Unknown, Verified 08/23/23 13:07) SEVERE RASH adhesive tape Allergy (Unknown, Uncoded 12/14/21 10:37) Rash HPI HPI CIC, GERD, SIBO 6 mo f/u: Details: Assessment & Plan (1) Chronic idiopathic constipation: Code(s): K59.04 - Chronic idiopathic constipation Category: Medical (2) Gastroparesis: Comment: 2022 GES=mild but significant delay Code(s): K31.84 - Gastroparesis Category: Medical (3) GERD (gastroesophageal reflux disease): Code(s): K21.9 - Gastro-esophageal reflux disease without esophagitis Category: Medical (4) Gallstones: Comment: 2022- HIDA scan Code(s): K80.20 - Calculus of gallbladder without cholecystitis without obstruction Category: Medical Plan Serbian #declines She is c/o malodorous flatulance. Will tx for SIBO and recommend a probiotic. She continues to do well on her medications. She continues on her pantoprazole twice a day, Linzess 145 micro g, Colace, simethicone, dicyclomine, and Reglan 5 mg 4 times a day. ROV 6 mos per pt preference. Medications: New metronidazole 500 mg PO TID 10 days 30 tabs 0RF Refilled dicyclomine 20 mg (2 x 10 mg) PO QID 30 days 240 caps 6RF K22.4 - Dyskinesia of esophagus, R13.10 - Dysphagia, unspecified simethicone 180 mg PO QID 120 caps 6RF R14.0 - Abdominal distension (gaseous) linaclotide (Linzess) 145 mcg PO QAM 30 caps 6RF K59.04 - Chronic idiopathic constipation bisacodyl 10 mg (2 x 5 mg) PO BEDTIME 60 tabs 6RF K59.00 - Constipation, unspecified docusate sodium 100 mg PO BID 60 caps 6RF K59.00 - Constipation, unspecified metoclopramide HCl 5 mg PO QID 120 tabs 6RF K31.84 - Gastroparesis pantoprazole 40 mg PO BID 60 tabs 6RF K21.9 - Gastro-esophageal reflux disease without esophagitis TODAYS VISIT Serbian #declines PFSH Medical History Weight loss RUQ abdominal pain Early satiety Acute diarrhea Abnormal x-ray examination Constipation Constipation Surgical History Hx of endoscopy Hx of colonoscopy Hx of section Family History Mother Thyroid condition Asthma Heart problem Diabetes Migraines Sister Thyroid condition Asthma Diabetes Migraines Father Asthma Diabetes Migraines Brother Asthma Diabetes Migraines Heart problem Social History Household Members: Children Alcohol intake: current Alcohol intake frequency: does not drink Current occupational status: disabled Review of Systems Const Denies fatigue, Denies fever(s), Denies night sweats, Denies poor appetite and Denies weight loss ENT Reports Normal hearing present, Denies dental pain, Denies dysphagia, Denies hearing loss, Denies mouth pain, Denies odynophagia, Denies throat swelling, Denies tongue swelling and Reports other (Dentition adequate) Card Reports no additional complaints Resp Reports no additional complaints GI Details: Denies abdominal pain, Denies melena, Reports bloating, Denies hematochezia, Reports constipation, Denies GI cramping, Denies dysphagia, Denies excessive flatus, Denies early satiety, Reports heartburn, Denies diarrhea, Denies nausea, Denies odynophagia, Denies vomiting and Denies hematemesis Skin/Breast Denies pruritus, Denies lesions, Denies rash and Denies jaundice Neuro Reports Normal hearing present and Denies Abnormal speech present Endo Denies fatigue Aller/Immun Denies throat swelling and Denies tongue swelling Physical Exam Vital Signs: Last Vital Signs Pulse 87 08/03/25 12:06 BP 114/71 08/03/25 12:06 BMI result Body Mass Index 29.5 Const General: cooperative, no acute distress, well developed and well groomed Nutritional Appearance: well nourished and overweight Orientation/consciousness: oriented to person, oriented to place and oriented to time Limitations: No language barrier HEENT Head: Yes normocephalic and Yes atraumatic Eyes General: appearance normal, both eyes and all related structures Pupils: Equal, round and reactive pupils present Neck Neck: Yes normal visual inspection and Yes no lymphadenopathy Thyroid: Thyroid normal Resp Effort & Inspection: normal respiratory effort and able to speak in complete sentences Auscultation: clear to auscultation bilaterally Cardio Rate: regular rate Rhythm: regular rhythm Heart sounds: Normal, physiologic split S2 sound present Peripheral pulses: radial pulses present and posterior tibial pulses present GI Inspection: No distended, No Abdominal panniculus present and Yes obesity Palpation (GI): Soft to palpation, nontender, no guarding, not rigid and No hepatosplenomegaly present Percussion: Yes normal to percussion Auscultation: normal bowel sounds Rectal Exam - Female: deferred Skin General skin exam: no rashes or lesions noted, turgor normal, skin not dry, no jaundice, No spider nevi and no striae Rashes: no rashes Nails: normal Neuro General: oriented to person, oriented to place and oriented to time Cranial nerves: Yes Equal, round and reactive pupils present and Yes Normal hearing present Speech: No Abnormal speech present Extrem General: Yes normal to inspection, No clubbing, No cyanosis and No edema Psych Appearance: grossly normal and well kempt Mental Status: mental status grossly normal Speech and movement: Normal speech and movement present Affect: normal affect Attitude: cooperative Thought process: Normal thought process present and not confabulating Thought content: Normal thought content present Insight: Good insight present (Psych) Judgement: Good judgement present (Psych) Assessment & Plan Assessment & Plan (1) GERD (gastroesophageal reflux disease): Code(s): K21.9 - Gastro-esophageal reflux disease without esophagitis Category: Medical (2) Gastroparesis: Comment: 2022 GES=mild but significant delay Code(s): K31.84 - Gastroparesis Category: Medical (3) Chronic idiopathic constipation: Code(s): K59.04 - Chronic idiopathic constipation Category: Medical (4) Abdominal bloating: Code(s): R14.0 - Abdominal distension (gaseous) Category: Medical Plan Serbian #declines She continues on bisacodyl, Colace, Linzess 145, pantoprazole twice a day, simethicone, dicyclomine, and Reglan 5 mg 4 times a day. She found the Flagyl quite effective for helping her with her gas and for her malodorous flatulence. She is quite happy with this. With this she is now quite satisfied with her GI regimen. Return office visit in 6 months Medications: Refilled bisacodyl 10 mg (2 x 5 mg) PO BEDTIME 60 tabs 6RF K59.00 - Constipation, unspecified docusate sodium 100 mg PO BID 60 caps 6RF K59.00 - Constipation, unspecified linaclotide (Linzess) 145 mcg PO QAM 30 caps 6RF K59.04 - Chronic idiopathic constipation pantoprazole 40 mg PO BID 60 tabs 6RF K21.9 - Gastro-esophageal reflux disease without esophagitis simethicone 180 mg PO QID 120 caps 6RF R14.0 - Abdominal distension (gaseous) dicyclomine 20 mg (2 x 10 mg) PO QID 240 caps 6RF 30 days K22.4 - Dyskinesia of esophagus, R13.10 - Dysphagia, unspecified metoclopramide HCl 5 mg PO QID 120 tabs 6RF K31.84 - Gastroparesis Discontinued metronidazole Discontinued Reason: Patient Completed Course 500 mg PO TID 10 days 30 tabs 0RF Coding Level of Care Code Est Pt Level 3 (01209) Diagnoses GERD (gastroesophageal reflux disease) K21.9 Gastroparesis K31.84 Chronic idiopathic constipation K59.04 Abdominal bloating R14.0
[2025-08-03 12:06] VITALS: BP 114/71; PULSE 87; BMI 29.5
--- OUTSIDE RECORDS SUMMARY | 2025-08-03 13:15 | XMS_ITS | Encounter Summary ---
Author Organization [employer] Address [address] [place] [address] [place] [address] Care Team Providers Care Payroll Administrator Name Role Phone Helen Marte MD Primary Care Provider [phone] Malka Travis PharmD Unavailable [phone] Encounter Details Date Type Department Care Team (Late Contact Info) Description 06/10/2023 Orders Only [facility] MED & PEDS [address] [place] [address] Helen Marte MD [address] [place] [address] Back pain, unspecified back location, unspecified back [...] Department Care Team (Late Contact Info) Description 08/05/2025 2:00 PM EDT Medication Management [facility] PEDS [address] [place] [address] Malka Travis PharmD [address] [place] [address] 10/19/2025 1:30 PM EST Clinical Support [facility]S [address] [place] [address] Dora Matute, RN [address] [place], [place] [phone] documented as of this encounter Visit Diagnoses Diagnosis Back pain, unspecified back location, unspecified back pain laterality, unspecified chronicity- Primary documented in this encounter Additional Health Concerns Assessment Noted Time PHQ-9 Depression Total Score: 3 01/24/20 23 10:25 AM EDT documented as of this encounter Care Teams Payroll Administrator Relationship Specialty Start Date End Date Helen Marte MD [address] [place] [address] PCP - General Family Medicine 11/04/18 Malka Travis, PharmD [address] [place] [address] Pharmacist Internal Medicine 01/14/25 documented as of this encounter
--- OUTSIDE RECORDS SUMMARY | 2025-08-03 13:15 | XMS_ITS | Encounter Summary ---
Author Organization [employer] Address [address] [place] [address] 7 [place] [address] Care Team Providers Care Strategic Client Executive Name Role Phone Helen Marte MD Primary Care Provider [phone] Malka Travis PharmD Unavailable [phone] Reason for Visit * Reason Comments Med Refill Encounter Details Date Type Department Care Team ([facility] st Contact Info) Description 04/16/2024 Refill [facility] MED & PEDS [address] [place], [place] [phone] Helen Marte MD [address] [place] [address] Social History Tobacco Use Types Packs/Day Years [...] Care Team (Late st Contact Info) Description 08/05/2025 2:00 PM EDT Medication Management [facility] MED & PEDS [address] [place] [address] Malka Travis PharmD [address] [place] [address] 10/19/2025 1:30 PM EST Clinical Support [facility] MED & PEDS [address] [place] [address] Dora Matute, RN 505 [place] [address] documented as of this encounter Visit Diagnoses Not on filedocumented in this encounter Additional Health Concerns Assessment Noted Time PHQ-9 Depression Total Score: 6 02/26/20 24 11:09 AM EDT documented as of this encounter Care Teams Strategic Client Executive Relationship Specialty Start Date End Date Helen Marte MD [address] [place] [address] PCP - General Family Medicine 11/04/18 Malka Travis, StefanoD [address] [place] [address] Pharmacist Internal Medicine 01/14/25 documented as of this encounter
--- OUTSIDE RECORDS SUMMARY | 2025-08-03 13:15 | XMS_ITS | Encounter Summary ---
Author Organization [employer] Address [address] [place] [address] 7 [place] [address] Care Team Providers Care Production Zone Leader Name Role Phone Helen Marte MD Primary Care Provider [phone] Malka Travis PharmD Unavailable [phone] Reason for Visit * Reason Comments Med Refill Encounter Details Date Type Department Care Team ([facility] st Contact Info) Description 10/19/2024 Refill [facility] MED & PEDS [address] [place], [place] [phone] Connie Yepez MD [address] [place] [address] Anxiety state; Back pain, unspecified back location, [...] Description 08/05/2025 2:00 PM EDT Medication Management [facility] MED & PEDS [address] [place] [address] Malka Travis PharmD [address] [place] [address] 10/19/2025 1:30 PM EST Clinical Support [facility] MED [facility] PEDS [address] [place] [address] Dora Matute, RN [address] [place] [address] documented as of this encounter Visit Diagnoses Diagnosis Anxiety state Anxiety state, unspecified Back pain, unspecified back location, unspecified back pain laterality, unspecified chronicity documented in this encounter Additional Health Concerns Assessment Noted Time PHQ-9 Depression Total Score: 6 02/26/20 24 11:09 AM EDT documented as of this encounter Care Teams Production Zone Leader Relationship Specialty Start Date End Date Helen Marte MD [address] [place] [address] PCP - General Family Medicine 11/04/18 Malka Travis, PharmD [address] [place] [address] Pharmacist Internal Medicine 01/14/25 documented as of this encounter
--- OUTSIDE RECORDS SUMMARY | 2025-08-03 13:15 | XMS_ITS | Encounter Summary ---
Author Organization [employer] Address [address] [facility] 7 [place] [address] Care Team Providers Care Digital Assistant Name Role Phone Helen Marte MD Primary Care Provider [phone] Malka Travis PharmD Unavailable [phone] Encounter Details Date Type Department Care Team ([facility] st Contact Info) Description 11/15/2023 Telephone [facility] MEDICINE [address] [place] [address] Helen Marte MD 505 [place] [address] Social History Tobacco Use Types Packs/Day Years [...] 08/05/2025 2:00 PM EDT Medication Management [facility] MED & PEDS [address] [place] [address] Malka Travis PharmD 230 [place] [address] 10/19/2025 1:30 PM EST Clinical Support [facility] MED [facility] PED[facility] [address] [place] [address] Dora Matute, RN 505 [place] [address] documented as of this encounter Visit Diagnoses Not on filedocumented in this encounter Additional Health Concerns Assessment Noted Time PHQ-9 Depression Total Score: 3 01/24/20 23 10:25 AM EDT documented as of this encounter Care Teams Digital Assistant Relationship Specialty Start Date End Date Helen Marte MD [address] [place] [address] PCP - General Family Medicine 11/04/18 Malka Travis PharmD [address] [place] [address] Pharmacist Internal Medicine 01/14/25 documented as of this encounter
--- OUTSIDE RECORDS SUMMARY | 2025-08-03 13:15 | XMS_ITS | Encounter Summary ---
Author Organization [employer] Address [address] [facility] 7 [place] [address] Care Team Providers Care Supervisor Hanging And Trimming Name Role Phone Helen Marte MD Primary Care Provider [phone] Malka Travis PharmD Unavailable Reason for Visit * Reason Onset Date Comments Med Refill 09/17/2024 Encounter Details Date Type Department Care Team (Late st Contact Info) Description 09/17/2024 Telephone [facility] MEDICINE [address] [place] [address] Helen Marte MD [address] [place] [address] Med Refill Social History Tobacco Use Types [...] tomorrow LORazepam (Ativan) 0.5 MG tablet HYDROcodone-acetaminophen (Jefferson) 7.5-325 MG tablet * Telephone Encounter - Miguel Reina - 09/17/2024 9:38 AM EST TC from pt requesting medication refill. Medications needing refill : LORazepam (Ativan) 0.5 MG tablet HYDROcodone-acetaminophen (Jeff[place]) 7.5-325 MG tablet To be sent to: [facility] [place] - [address] [facility] documented in this encounter Plan of Treatment Upcoming Encounters Date Type Department Care Team (Late st Contact Info) Description 08/05/2025 2:00 PM EDT Medication Management [facility] MED & PEDS [address] [place] [address] Malka Travis, PharmD [address] [place] [address] 10/19/2025 1:30 PM EST Clinical Support [facility] MED & PEDS [address] [place] [address] Dora Matute, RN [address] [place] [address] documented as of this encounter Visit Diagnoses Not on filedocumented in this encounter Additional Health Concerns Assessment Noted Time PHQ-9 Depression Total Score: 6 02/26/20 24 11:09 AM EDT documented as of this encounter Care Teams Supervisor Hanging And Trimming Relationship Specialty Start Date End Date Helen Marte MD [address] [place] [address] PCP - General Family Medicine 11/04/18 Malka Travis PharmD [address] [place] [address] Pharmacist Internal Medicine 01/14/25 documented as of this encounter
--- OUTSIDE RECORDS SUMMARY | 2025-08-03 13:15 | XMS_ITS | Encounter Summary ---
Author Organization [employer] Address [address] [facility] 7 [place] [address] Care Team Providers Care Thermoforming Operator Name Role Phone Helen Marte MD Primary Care Provider [phone] Malka Travis PharmD Unavailable [phone] Reason for Visit * Reason Comments Med Refill Encounter Details Date Type Department Care Team (Late st Contact Info) Description 12/11/[address] [facility] MEDICINE [address] [place] [address] Pacheco Green MD [address] [place] [address] Back pain, unspecified back location, unspecified back [...] 08/05/2025 2:00 PM EDT Medication Management [facility] MED & PEDS [address] [place] [address] Malka Travis PharmD [address] [place] [address] 10/19/2025 1:30 PM EST Clinical Support [facility] PEDS [address] [place] [address] Dora Matute RN 505 [place] [address] documented as of this encounter Visit Diagnoses Diagnosis Back pain, unspecified back location, unspecified back pain laterality, unspecified chronicity documented in this encounter Additional Health Concerns Assessment Noted Time PHQ-9 Depression Total Score: 3 01/24/20 23 10:25 AM EDT documented as of this encounter Care Teams Thermoforming Operator Relationship Specialty Start Date End Date Helen Marte MD [address] [place] [address] PCP - General Family Medicine 11/04/18 Malka Travis PharmD [address] [place] [address] Pharmacist Internal Medicine 01/14/25 documented as of this encounter
--- OUTSIDE RECORDS SUMMARY | 2025-08-03 13:15 | XMS_ITS | Encounter Summary ---
Author Organization [employer] Address [address] [place] [address] 7 [place] [address] Care Team Providers Care Tank Maker Wood Name Role Phone Helen Marte MD Primary Care Provider [phone] Malka Travis PharmD Unavailable [phone] Reason for Visit * Reason Comments Med Refill Encounter Details Date Type Department Care Team ([facility] Contact Info) Description 01/30/2023 Refill [facility] MEDICINE [address] [place] [address] Helen Marte MD [address] [place] [address] Social History Tobacco Use Types Packs/Day Years [...] Upcoming Encounters Date Type Department Care Team ([facility] Contact Info) Description 08/05/2025 2:00 PM EDT Medication Management [facility] MED & PEDS [address] [place] [address] Malka Travis PharmD [address] [place] [address] 10/19/2025 1:30 PM EST Clinical Support [facility] MED & PEDS [address] [place] [address] Dora Matute, YOSHI 505 [place] [address] documented as of this encounter Visit Diagnoses Not on filedocumented in this encounter Additional Health Concerns Assessment Noted Time PHQ-9 Depression Total Score: 3 01/24/20 23 10:25 AM EDT documented as of this encounter Care Teams Tank Maker Wood Relationship Specialty Start Date End Date Helen Marte MD [address] [place] [address] PCP - General Family Medicine 11/04/18 Malka Travis, PharmD [address] [place] [address] Pharmacist Internal Medicine 01/14/25 documented as of this encounter
--- OUTSIDE RECORDS SUMMARY | 2025-08-03 13:15 | XMS_ITS | Encounter Summary ---
Author Organization [employer] Address [address] [place] [address] 7 [place] [address] Care Team Providers Care Allergist Immunologist Name Role Phone Helen Marte MD Primary Care Provider Malka Travis PharmD Unavailable [phone] Encounter Details Date Type Department Care Team ([facility] Contact Info) Description 12/19/2022 Telephone [facility] MED & PEDS [address] [place], [place] [phone] Helen Marte MD [address] [place] [address] Social History Tobacco Use Types Packs/Day Years [...] Upcoming Encounters Date Type Department Care Team ([facility] Contact Info) Description 08/05/2025 2:00 PM EDT Medication Management [facility] MED & PEDS [address] [place], [place] [phone] Malka Travis, PharmD 230 [place] [address] 10/19/2025 1:30 PM EST Clinical Support [facility] MED & PEDS [address] [place] [address] Dora Matute, RN [address] [place], [place] [phone] documented as of this encounter Visit Diagnoses Not on filedocumented in this encounter Care Teams Allergist Immunologist Relationship Specialty Start Date End Date Helen Marte MD [address] [place] [address] PCP - General Family Medicine 11/04/18 Malka Travis, StefanoD [address] [place] [address] Pharmacist Internal Medicine 01/14/25 documented as of this encounter
--- OUTSIDE RECORDS SUMMARY | 2025-08-03 13:15 | XMS_ITS | Encounter Summary ---
Author Organization [employer] Address [address] [place] [address] 7 [place] [address] Care Team Providers Care Oxidized Finish Plater Name Role Phone Helen Marte MD Primary Care Provider [phone] aMlka Travis PharmD Unavailable [phone] Reason for Visit * Reason Comments Med Refill Encounter Details Date Type Department Care Team ([facility] st Contact Info) Description 01/30/2024 Refill [facility] MED & PEDS [address] [place], [place] [phone] Helen Marte MD [address] [place] [address] Back pain, unspecified back location, unspecified back [...] Description 08/05/2025 2:00 PM EDT Medication Management [facility] MED & PEDS [address] [place] [address] Malka Travis PharmD 230 [place] [address] 10/19/2025 1:30 PM EST Clinical Support [facility] MED & PEDS [address] [place] [address] Dora Matute RN [address] [place], [place] documented as of this encounter Visit Diagnoses Diagnosis Back pain, unspecified back location, unspecified back pain laterality, unspecified chronicity Anxiety state Anxiety state, unspecified documented in this encounter Additional Health Concerns Assessment Noted Time PHQ-9 Depression Total Score: 3 01/24/20 23 10:25 AM EDT documented as of this encounter Care Teams Oxidized Finish Plater Relationship Specialty Start Date End Date Helen Marte MD [address] [place] [address] PCP - General Family Medicine 11/04/18 Malka Travis PharmD [address] [place] [address] Pharmacist Internal Medicine 01/14/25 documented as of this encounter
--- OUTSIDE RECORDS SUMMARY | 2025-08-03 13:15 | XMS_ITS | Encounter Summary ---
Author Organization [employer] Address [address] [place] [address] 7 [place] [address] Care Team Providers Care Pawn Shop Keeper Name Role Phone Helen Marte MD Primary Care Provider [phone] Malka Travis PharmD Unavailable [phone] Reason for Visit * Reason Onset Date Comments Results 02/04/2023 Encounter Details Date Type Department Care Team ([facility] st Contact Info) Description 02/04/2023 Telephone [facility] MED & PEDS [address] [place], [place] [id number] Helen Marte MD 505 [place], [place] [id number] Results Social History Tobacco Use Types Packs/Day [...] she wants to. RN called pt via play140 emt b ID# [id number] and inform of above message, pt verbalizes [...] - 02/04/2023 10:24 AM EDT Tc from Anne with N requesting for pt to be call with her X-ray results. Please contact pt at [phone] documented in this encounter Plan of Treatment Upcoming Encounters Date Type Department Care Team ([facility] st Contact Info) Description 08/05/2025 2:00 PM EDT Medication Management [facility] MED & PEDS [address] [place] [address] Malka Travis, StefanoD 230 [place] [address] 10/19/2025 1:30 PM EST Clinical Support [facility] MED & PEDS [address] [place] [address] Dora Matute, YOSHI 505 [place] [address] documented as of this encounter Visit Diagnoses Not on filedocumented in this encounter Additional Health Concerns Assessment Noted Time PHQ-9 Depression Total Score: 3 01/24/20 23 10:25 AM EDT documented as of this encounter Care Teams Pawn Shop Keeper Relationship Specialty Start Date End Date Helen Marte MD 505 [place] [address] PCP - General Family Medicine 11/04/18 Malka Travis PharmD 230 [place] [address] Pharmacist Internal Medicine 01/14/25 documented as of this encounter
--- OUTSIDE RECORDS SUMMARY | 2025-08-03 13:15 | XMS_ITS | Encounter Summary ---
Author Organization [employer] Address [address] [place] [address] 7 [place] [address] Care Team Providers Care Commercial Credit Head Name Role Phone Helen Marte MD Primary Care Provider [phone] Malka Travis PharmD Unavailable [phone] Reason for Visit * Reason Onset Date Comments Med Refill 11/06/2022 Encounter Details Date Type Department Care Team (Late Contact Info) Description 11/06/2022 Telephone [facility] MEDICINE 230 [place] [address] Helen Marte MD 505 [place] [address] Med Refill Social History Tobacco Use Types [...] Description 08/05/2025 2:00 PM EDT Medication Management [facility] MED & PEDS 505 [place] [address] Malka Travis PharmD 230 [place] [address] 10/19/2025 1:30 PM EST Clinical Support [facility] MED & PEDS 505 [place] [address] Dora Matute, YOSHI 505 [place] [address] documented as of this encounter Visit Diagnoses Not on filedocumented in this encounter Care Teams Commercial Credit Head Relationship Specialty Start Date End Date Helen Marte MD 505 [place] [address] PCP - General Family Medicine 11/04/18 Malka Travis PharmD 230 [place] [address] Pharmacist Internal Medicine 01/14/25 documented as of this encounter
--- OUTSIDE RECORDS SUMMARY | 2025-08-03 13:15 | XMS_ITS | Encounter Summary ---
Author Organization [employer] Address [address] [place] [address] 7 [place] [address] Care Team Providers Care Heating And Ventilating Tender Name Role Phone Helen Marte MD Primary Care Provider [phone] Malka Travis PharmD Unavailable [phone] Reason for Visit * Reason Onset Date Comments Med Refill 01/29/2023 Encounter Details Date Type Department Care Team (Late st Contact Info) Description 01/29/2023 Telephone [facility] MEDICINE 230 [place] [address] Helen Marte MD 505 [place] [address] Med Refill Social History Tobacco Use Types [...] Description 08/05/2025 2:00 PM EDT Medication Management [facility] MED & PEDS 505 [place] [address] Malka Travis PharmD 230 [place] [address] 10/19/2025 1:30 PM EST Clinical Support [facility] MED & PEDS 505 [place] [address] Dora Matute, RN 505 [place] [address] documented as of this encounter Visit Diagnoses Not on filedocumented in this encounter Additional Health Concerns Assessment Noted Time PHQ-9 Depression Total Score: 3 01/24/20 23 10:25 AM EDT documented as of this encounter Care Teams Heating And Ventilating Tender Relationship Specialty Start Date End Date Helen Marte MD 505 [place] [address] PCP - General Family Medicine 11/04/18 Malka Travis PharmD 230 [place] [address] Pharmacist Internal Medicine 01/14/25 documented as of this encounter
--- OUTSIDE RECORDS SUMMARY | 2025-08-03 13:15 | XMS_ITS | Encounter Summary ---
Author Organization [employer] Address 75 [facility] 7 [place] [address] Care Team Providers Care Brand Marketing Specialist Name Role Phone Helen Marte MD Primary Care Provider [phone] Malka Travis PharmD Unavailable [phone] Reason for Visit * Reason Comments Med Refill Encounter Details Date Type Department Care Team ([facility] st Contact Info) Description 08/22/2023 Refill [facility] MEDICINE [address] [place] [address] Helen Marte MD 505 [place] [address] Primary fibromyalgia syndrome Social History Tobacco Use [...] Description 08/05/2025 2:00 PM EDT Medication Management [facility] MED & PEDS 505 [place] [address] Malka Travis PharmD 230 [place] [address] 10/19/2025 1:30 PM EST Clinical Support [facility] MED & PEDS 505 [place] [address] Dora Matute, YOSHI 505 [place] [address] documented as of this encounter Visit Diagnoses Diagnosis Primary fibromyalgia syndrome Unspecified myalgia and myositis documented in this encounter Additional Health Concerns Assessment Noted Time PHQ-9 Depression Total Score: 3 01/24/20 23 10:25 AM EDT documented as of this encounter Care Teams Brand Marketing Specialist Relationship Specialty Start Date End Date Helen Marte MD 505 [place] [address] PCP - General Family Medicine 11/04/18 Malka Travis PharmD 230 [place] [address] Pharmacist Internal Medicine 01/14/25 documented as of this encounter
--- OUTSIDE RECORDS SUMMARY | 2025-08-03 13:15 | XMS_ITS | Encounter Summary ---
Author Organization [employer] Address 75 [facility] 7 [place] [address] Care Team Providers Care Escalation Engineer Name Role Phone Helen Marte MD Primary Care Provider [phone] Malka Travis PharmD Unavailable [phone] Reason for Visit * Reason Onset Date Comments Med Refill 11/17/2024 Encounter Details Date Type Department Care Team (Late st Contact Info) Description 11/17/2024 Telephone [facility] MEDICINE 230 [place] [address] Helen Marte MD 505 [place] [address] Med Refill Social History Tobacco Use Types [...] : LORazepam (Ativan) 0.5 MG tablet HYDROcodone-acetaminophen ([place]) 7.5-325 MG tablet To be sent to: [facility] - [place], [place] - [address] [place] [address] documented in this encounter Plan of Treatment Upcoming Encounters Date Type Department Care Team ([facility] st Contact Info) Description 08/05/2025 2:00 PM EDT Medication Management [facility] MED & PEDS 505 [place] [address] Malka Travis PharmD 230 [place] [address] 10/19/2025 1:30 PM EST Clinical Support [facility] MED & PEDS [address] [place] [address] Dora Matute, YOSHI 505 [place] [address] documented as of this encounter Visit Diagnoses Not on filedocumented in this encounter Additional Health Concerns Assessment Noted Time PHQ-9 Depression Total Score: 6 02/26/20 24 11:09 AM EDT documented as of this encounter Care Teams Escalation Engineer Relationship Specialty Start Date End Date Helen Marte MD 505 [place] [address] PCP - General Family Medicine 11/04/18 Malka Travis PharmD 230 [place] [address] Pharmacist Internal Medicine 01/14/25 documented as of this encounter
--- OUTSIDE RECORDS SUMMARY | 2025-08-03 13:15 | XMS_ITS | Encounter Summary ---
Author Organization [employer] Address [address] [facility] 7 [place] [address] Care Team Providers Care Gas Pumper Name Role Phone Helen Marte MD Primary Care Provider [phone] Malka Travis PharmD Unavailable [phone] Reason for Visit * Reason Comments Med Refill Encounter Details Date Type Department Care Team (Late st Contact Info) Description 06/24/2024 Refill [facility] MEDICINE 230 [place] [address] Helen Marte MD 505 [place] [address] Back pain, unspecified back location, unspecified back [...] Description 08/05/2025 2:00 PM EDT Medication Management [facility] MED & PEDS 505 [place] [address] Malka Travis PharmD 230 [place] [address] 10/19/2025 1:30 PM EST Clinical Support [facility] MED & PEDS 505 [place] [address] Dora Matute, RN 505 [place] [address] documented as of this encounter Visit Diagnoses Diagnosis Back pain, unspecified back location, unspecified back pain laterality, unspecified chronicity Anxiety state Anxiety state, unspecified documented in this encounter Additional Health Concerns Assessment Noted Time PHQ-9 Depression Total Score: 6 02/26/20 24 11:09 AM EDT documented as of this encounter Care Teams Gas Pumper Relationship Specialty Start Date End Date Helen Marte MD 505 [place] [address] PCP - General Family Medicine 11/04/18 Malka Travis PharmD 230 [place] [address] Pharmacist Internal Medicine 01/14/25 documented as of this encounter
--- OUTSIDE RECORDS SUMMARY | 2025-08-03 13:15 | XMS_ITS | Encounter Summary ---
Author Organization [employer] Address 75 [facility] 7 [place] [address] Care Team Providers Care Cloth Colorer Name Role Phone Helen Marte MD Primary Care Provider [phone] Malka Travis PharmD Unavailable [phone] Reason for Visit * Reason Comments Med Refill Encounter Details Date Type Department Care Team (Late st Contact Info) Description 09/17/2024 Refill [facility] MEDICINE 230 [place] [address] Helen Marte MD 505 [place] [address] Primary fibromyalgia syndrome; Anxiety state; Back pain, [...] Medication Management [facility] MED & PEDS 505 [place] [address] Malka Travis PharmD 230 [place] [address] 10/19/2025 1:30 PM EST Clinical Support [facility] MED & PEDS 505 [place] [address] Dora Matute, RN 505 [place] [address] documented as of this encounter Visit Diagnoses Diagnosis Primary fibromyalgia syndrome Unspecified myalgia and myositis Anxiety state Anxiety state, unspecified Back pain, unspecified back location, unspecified back pain laterality, unspecified chronicity documented in this encounter Additional Health Concerns Assessment Noted Time PHQ-9 Depression Total Score: 6 02/26/20 24 11:09 AM EDT documented as of this encounter Care Teams Cloth Colorer Relationship Specialty Start Date End Date Helen Marte MD 505 [place] [address] PCP - General Family Medicine 11/04/18 Malka Travis PharmD 230 [place] [address] Pharmacist Internal Medicine 01/14/25 documented as of this encounter
--- OUTSIDE RECORDS SUMMARY | 2025-08-03 13:15 | XMS_ITS | Encounter Summary ---
Author Organization [employer] Address [address] [facility] 7 [place] [address] Care Team Providers Care Health Program Manager Name Role Phone Helen Marte MD Primary Care Provider [phone] Malka Travis PharmD Unavailable [phone] Reason for Visit * Reason Onset Date Comments Med Refill 07/26/2025 Encounter Details Date Type Department Care Team (Late st Contact Info) Description 07/26/2025 Telephone [facility] MEDICINE 230 [place] [address] Helen Marte MD 505 [place] [address] Med Refill Social History Tobacco Use Types [...] encounter Miscellaneous Notes * Telephone Encounter - Shirin Padron - 07/26/2025 10:19 AM EDT TC from pt requesting medication refill. Medications needing refill : - HYDROcodone-acetaminophen ([place]) 7.5-325 MG tablet - LORazepam (Ativan) 0.5 MG tablet To be sent to: - [facility] - [place] - [address] [facility] documented in this encounter Plan of Treatment Upcoming Encounters Date Type Department Care Team ([facility] st Contact Info) Description 08/05/2025 2:00 PM EDT Medication Management [facility] MED & PEDS 505 [place] [address] Malka Travis, PharmD 230 [place] [address] 10/19/2025 1:30 PM EST Clinical Support [facility] MED & PEDS 505 [place] [address] Dora Matute, RN 505 [place] [address] documented as of this encounter Visit Diagnoses Not on filedocumented in this encounter Additional Health Concerns Assessment Noted Time PHQ-9 Depression Total Score: 7 12/17/19 25 1:03 PM EST documented as of this encounter Care Teams Health Program Manager Relationship Specialty Start Date End Date Helen Marte MD 505 [place] [address] PCP - General Family Medicine 11/04/18 Malka Travis PharmD 230 [place] [address] Pharmacist Internal Medicine 01/14/25 documented as of this encounter
--- OUTSIDE RECORDS SUMMARY | 2025-08-03 13:15 | XMS_ITS | Encounter Summary ---
Author Organization [employer] Address [address] [place] [address] 7 [place] [address] Care Team Providers Care Stone Grader Name Role Phone Helen Marte MD Primary Care Provider [phone] Malka Travis PharmD Unavailable Reason for Visit * Reason Comments Med Refill Encounter Details Date Type Department Care Team ([facility] st Contact Info) Description 05/26/2024 Refill [facility] CHC MED & PEDS 505 [place], [place] [phone] Helen Marte MD 505 [place] [address] Back pain, unspecified back location, unspecified back [...] 08/05/2025 2:00 PM EDT Medication Management [facility] MED & PEDS 505 [place] [address] Malka Travis PharmD 230 [place] [address] 10/19/2025 1:30 PM EST Clinical Support [facility] MED & PEDS 505 [place] [address] Dora Matute, RN 505 [place] [address] documented as of this encounter Visit Diagnoses Diagnosis Back pain, unspecified back location, unspecified back pain laterality, unspecified chronicity Anxiety state Anxiety state, unspecified documented in this encounter Additional Health Concerns Assessment Noted Time PHQ-9 Depression Total Score: 6 02/26/20 24 11:09 AM EDT documented as of this encounter Care Teams Stone Grader Relationship Specialty Start Date End Date Helen Marte MD 505 [place] [address] PCP - General Family Medicine 11/04/18 Malka Travis, StefanoD 230 [place] [address] Pharmacist Internal Medicine 01/14/25 documented as of this encounter
--- OUTSIDE RECORDS SUMMARY | 2025-08-03 13:15 | XMS_ITS | Encounter Summary ---
Author Organization [employer] Address 75 [facility] 7 [place] [address] Care Team Providers Care Certified Indoor Environmentalist Name Role Phone Helen Marte MD Primary Care Provider [phone] Malka Travis PharmD Unavailable [phone] Reason for Visit * Reason Onset Date Comments Reschedule 11/15/2023 Encounter Details Date Type Department Care Team (Late st Contact Info) Description 11/15/2023 Telephone [facility] MEDICINE 230 [place] [address] Helen Marte MD 505 [place] [address] Reschedule Social History Tobacco Use Types Packs/Day [...] clinic if she would like to.Acupuncture at [facility] could also help.Thanks * Telephone Encounter - Nuria Vail - 11/15/2023 12:05 PM EST Tc from pt requesting r/s JUDICIAL REGISTRAR appt. documented in this encounter Plan of Treatment Upcoming Encounters Date Type Department Care Team ([facility] st Contact Info) Description 08/05/2025 2:00 PM EDT Medication Management [facility] MED & PEDS 505 [place] [address] Malka Travis PharmD 230 [place] [address] 10/19/2025 1:30 PM EST Clinical Support [facility] MED & PEDS 505 [place] [address] Dora Matute, YOSHI 505 [place] [address] documented as of this encounter Visit Diagnoses Not on filedocumented in this encounter Additional Health Concerns Assessment Noted Time PHQ-9 Depression Total Score: 3 01/24/20 23 10:25 AM EDT documented as of this encounter Care Teams Certified Indoor Environmentalist Relationship Specialty Start Date End Date Helen Marte MD 505 [place] [address] PCP - General Family Medicine 11/04/18 Malka Travis PharmD 230 [place] [address] Pharmacist Internal Medicine 01/14/25 documented as of this encounter
--- OUTSIDE RECORDS SUMMARY | 2025-08-03 13:15 | XMS_ITS | Encounter Summary ---
Author Organization [employer] Address 75 [facility] 7 [place] [address] Care Team Providers Care Electric Well Logging Operator Name Role Phone Helen Marte MD Primary Care Provider [phone] Malka Trvais PharmD Unavailable [phone] Reason for Visit * Reason Onset Date Comments Med Refill 06/28/2025 Encounter Details Date Type Department Care Team (Late st Contact Info) Description 06/28/2025 Telephone [facility] MEDICINE 230 [place] [address] Helen Marte MD 505 [place] [address] Med Refill Social History Tobacco Use Types [...] encounter Miscellaneous Notes * Telephone Encounter - Jonh Kikr - 06/28/2025 12:07 PM EDT TC from pt requesting medication refill. Medications needing refill: LORazepam (Ativan) 0.5 MG tablet HYDROcodone-acetaminophen ([place]) 7.5-325 MG tablet To be sent to: [facility] - [address] documented in this encounter Plan of Treatment Upcoming Encounters Date Type Department Care Team ([facility] st Contact Info) Description 08/05/2025 2:00 PM EDT Medication Management [facility] MED & PEDS 505 [place] [address] Malka Travis, StefanoD 230 [place] [address] 10/19/2025 1:30 PM EST Clinical Support [facility] MED & PEDS 505 [place] [address] Dora Matute, RN 505 [place], [place] documented as of this encounter Visit Diagnoses Not on filedocumented in this encounter Additional Health Concerns Assessment Noted Time PHQ-9 Depression Total Score: 7 12/17/19 25 1:03 PM EST documented as of this encounter Care Teams Electric Well Logging Operator Relationship Specialty Start Date End Date Helen Marte MD 505 [place] [address] PCP - General Family Medicine 11/04/18 Malka Travis PharmD [address] [place] [address] Pharmacist Internal Medicine 01/14/25 documented as of this encounter
--- OUTSIDE RECORDS SUMMARY | 2025-08-03 13:15 | XMS_ITS | Encounter Summary ---
Author Organization [employer] Address 75 [facility] 7 [place] [address] Care Team Providers Care Policy Advisor Name Role Phone Helen Marte MD Primary Care Provider [phone] Malka Travis PharmD Unavailable [phone] Reason for Visit * Reason Onset Date Comments Med Refill 04/28/2024 Encounter Details Date Type Department Care Team (Late st Contact Info) Description 04/28/2024 Telephone [facility] MEDICINE 230 [place] [address] Helen Marte MD 505 [place] [address] Med Refill Social History Tobacco Use Types [...] medication refill. Medications needing refill : HYDROcodone-acetaminophen ([place]) 7.5-325 MG tablet and LORazepam (Ativan) 0.5 MG tablet To be sent to: [facility] - [place], [place] - [address] [place] [address] documented in this encounter Plan of Treatment Upcoming Encounters Date Type Department Care Team ([facility] st Contact Info) Description 08/05/2025 2:00 PM EDT Medication Management [facility] MED & PEDS 505 [place] [address] Malka Travis, Afshin 230 [place] [address] 10/19/2025 1:30 PM EST Clinical Support [facility] MED & PEDS 505 [place] [address] Dora Matute, RN 505 [place] [address] documented as of this encounter Visit Diagnoses Not on filedocumented in this encounter Additional Health Concerns Assessment Noted Time PHQ-9 Depression Total Score: 6 02/26/20 24 11:09 AM EDT documented as of this encounter Care Teams Policy Advisor Relationship Specialty Start Date End Date Helen Marte MD 505 [place] [address] PCP - General Family Medicine 11/04/18 Malka Travis PharmD 230 [place] [address] Pharmacist Internal Medicine 01/14/25 documented as of this encounter
--- OUTSIDE RECORDS SUMMARY | 2025-08-03 13:15 | XMS_ITS | Encounter Summary ---
Author Organization [employer] Address 75 [facility] 7 [place] [address] Care Team Providers Care Industrial Controller Name Role Phone Helen Marte MD Primary Care Provider [phone] Malka Travis PharmD Unavailable [phone] Reason for Visit * Reason Onset Date Comments Med Refill 04/05/2025 Encounter Details Date Type Department Care Team (Late st Contact Info) Description 04/05/2025 Telephone [facility] MEDICINE 230 [place] [address] Helen Marte MD 505 [place] [address] Med Refill Social History Tobacco Use Types [...] encounter Miscellaneous Notes * Telephone Encounter - Page Beckford - 04/05/2025 9:12 AM EDT TC from pt requesting medication refill. Medications needing refill : HYDROcodone-acetaminophen ([place]) 7.5-325 MG tablet To be sent to: [facility] documented in this encounter Plan of Treatment Upcoming Encounters Date Type Department Care Team ([facility] st Contact Info) Description 08/05/2025 2:00 PM EDT Medication Management [facility] MED & PEDS 505 [place] [address] Malka Travis, PharmD 230 [place] [address] 10/19/2025 1:30 PM EST Clinical Support [facility] MED & PEDS 505 [place] [address] Dora Matute, RN 505 [place] [address] documented as of this encounter Visit Diagnoses Not on filedocumented in this encounter Additional Health Concerns Assessment Noted Time PHQ-9 Depression Total Score: 7 12/17/19 25 1:03 PM EST documented as of this encounter Care Teams Industrial Controller Relationship Specialty Start Date End Date Helen Marte MD 505 [place] [address] PCP - General Family Medicine 11/04/18 Malka Travis PharmD 230 [place] [address] Pharmacist Internal Medicine 01/14/25 documented as of this encounter
--- OUTSIDE RECORDS SUMMARY | 2025-08-03 13:15 | XMS_ITS | Encounter Summary ---
Author Organization [employer] Address [address] [place] [address] 7 [place] [address] Care Team Providers Care Air Cargo Agent Name Role Phone Helen Marte MD Primary Care Provider [phone] Malka Travis PharmD Unavailable [phone] Encounter Details Date Type Department Care Team (Late st Contact Info) Description 11/16/2022 Orders Only [facility]C MED & PEDS [address] [place] [address] Chioma Neely LPN Social History Tobacco Use [...] 08/05/2025 2:00 PM EDT Medication Management [facility] MED & PEDS 505 [place] [address] Malka Travis, PharmD 230 [place] [address] 10/19/2025 1:30 PM EST Clinical Support [facility] MED & PEDS 505 [place] [address] Dora Matute, RN 505 [place] [address] documented as of this encounter Visit Diagnoses Not on filedocumented in this encounter Care Teams Air Cargo Agent Relationship Specialty Start Date End Date Helen Marte MD 505 [facility] [place] [address] PCP - General Family Medicine 11/04/18 Malka Travis, StefanoD [address] [place] [address] Pharmacist Internal Medicine 01/14/25 documented as of this encounter
--- OUTSIDE RECORDS SUMMARY | 2025-08-03 13:15 | XMS_ITS | Encounter Summary ---
Author Organization [employer] Address [address] [place] [address] 7 [place] [address] Care Team Providers Care Classroom Technology Coach Name Role Phone Helen Marte MD Primary Care Provider [phone] Malka Travis PharmD Unavailable [phone] Encounter Details Date Type Department Care Team (Late st Contact Info) Description 07/28/2025 Orders Only [facility] [address] [place] [address] Provider, MD Humphrey Social History Tobacco Use Types Packs/Day Years [...] Upcoming Encounters Date Type Department Care Team ([facility] st Contact Info) Description 08/05/2025 2:00 PM EDT Medication Management [facility] MED & PEDS [address] [place] [address] Malka Travis PharmD [address] [place] [address] 10/19/2025 1:30 PM EST Clinical Support [facility] [address] [place] [address] Dora Matute, YOSHI [address] [place], [place] [phone] documented as of this encounter Procedures Procedure Name Priority Date/Time Associated Diagnosis Comments TRANSTHORACIC ECHO (TTE) COMPLETE Routine 07/22/2025 3:28 PM EDT documented in this encounter Results * Transthoracic echo (TTE) complete (07/22/2025 3:28 PM EDT) us Historical Provider CV ECHO PROCEDURES Final Result documented in this encounter Visit Diagnoses Not on filedocumented in this encounter Additional Health Concerns Assessment Noted Time PHQ-9 Depression Total Score: 7 12/17/19 25 1:03 PM EST documented as of this encounter Care Teams Classroom Technology Coach Relationship Specialty Start Date End Date Helen Marte MD [address] [place] [address] PCP - General Family Medicine 11/04/18 Malka Travis, Afshin [address] [place] [address] Pharmacist Internal Medicine 01/14/25 documented as of this encounter
--- OUTSIDE RECORDS SUMMARY | 2025-08-03 13:15 | XMS_ITS | Clinical Summary ---
Author Organization [employer] Address [address] [place] [address] 7 [place] [address] Care Team Providers Care Channeling Machine Runner Name Role Phone Helne Marte MD Primary Care Provider [phone] Malka Travis PharmD Unavailable [phone] Allergies Active Allergy Reactions Criticality Noted Date [...] noon, in the evening, and at bedtime 023 Active pantoprazole (ProtoNix) 40 MG EC tablet TAKE ONE TABLET TWICE DAILY IN THE MORNING AND AT BEDTIME 023 Active ondansetron (Zofran) 4 MG tablet TAKE 1 TABLET EVERY 8 HOURS NEEDED NAUSEA TAKE FOR NAUSEA RELATED MIGRAINE HEADACHES. 023 Active nortriptyline (Pamelor) 10 MG capsule Take 10 mg by mouth 2 times daily. 023 Active losartan (Cozaar) 50 MG tablet Take 50 mg by mouth in the morning. 023 Active Emgality 120 MG/ML auto-injector 023 Active furosemide (Lasix) 40 MG tablet Take 40 mg by mouth in the morning. 023 Active flecainide (Tambocor) 100 MG tablet Take 100 mg by mouth 2 times daily. 023 Active docusate sodium (Colace) 100 MG capsule TAKE ONE CAPSULE IN THE MORNING AND EVENING 023 Active dicyclomine (Bentyl) 10 MG capsule TAKE TWO CAPSULES FOUR TIMES DAILY IN THE MORNING, AT NOON, IN THE EVENING AND AT BEDTIME 023 Active calcitonin, salmon, (Miacalcin) 200 UNIT/ACT nasal spray INHALE ONE SPRAY nasally daily, altrenating nostrils 023 Active Eliquis 5 MG tablet TAKE ONE TABLET TWICE DAILY IN THE MORNING AND AT BEDTIME 023 Active TRUEplus Lancets 33G misc TEST BLOOD SUGAR THREE TIMES DAILY 100 each 1 023 Active metoclopramide (Reglan) 5 MG tablet Take 5 mg by mouth 4 times daily. Active Bisacodyl EC 5 MG EC tablet TAKE TWO TABLETS EVERY DAY AT BEDTIME 024 Active Linzess 145 MCG capsule Take 145 mcg by mouth in the morning. 023 Active nystatin (Mycostatin) creamIndications :Diabetes mellitus without complication (HCC) APPLY TO THE AFFECTED AREA(S) TWICE DAILY 90 g 3 024 Active atorvastatin (Lipitor) 20 MG tabletIndication s:Benign essential hypertension TAKE 1 TABLET EVERY EVENING 90 tablet 3 024 Active cholecalciferol VITAMIN D (Vitamin D-3) 50 MCG (1999 UT) capsule TAKE ONE CAPSULE TWICE DAILY IN THE MORNING AND AT BEDTIME 180 capsule 3 024 Active metFORMIN (Glucophage) 500 MG tablet TAKE ONE TABLET TWICE DAILY WITH BREAKFAST AND SUPPER 60 tablet 11 025 Active Nutritional Supplements (Glucerna 1.0 Wilder) liquidIndication s:Diabetes mellitus without complication (HCC) Take 1 Bottle by mouth 2 times daily. 1000 mL 11 025 Active Blood Glucose Monitoring Suppl (FreeStyle [place] Lite) w/Device kit TEST BLOOD SUGAR TWICE DAILY 1 kit 025 Active albuterol 108 (90 Base) MCG/ACT inhalerIndicatio ns:Mild intermittent asthma, unspecified whether complicated Inhale 1-2 puffs every 6 hours as needed for shortness of breath 18 g 1 025 Active traZODone (Desyrel) 100 MG tabletIndication s:Chronic recurrent major depressive disorder (CMS/HCC) TAKE ONE TABLET EVERY NIGHT AT BEDTIME 30 tablet 5 Active Continuous Glucose Sensor (FreeStyle Miguel A 2 Sensor) miscIndications: Primary dilated cardiomyopathy (CMS/HCC) ([facility]),Type 2 diabetes mellitus associated with morbid obesity ([facility]) CHECK BLOOD SUGAR THREE TIMES DAILY 2 each Active naloxone (Narcan) 4 mg/0.1 mL nasal spray Administer 1 spray (4 mg) into affected nostril(s) if needed for opioid reversal. May repeat every 2-3 minutes if needed, alternating nostrils, until medical assistance becomes available. 2 each 2025 Active glipiZIDE (Glucotrol) 5 MG tablet Take 1 tablet by mouth daily before dinner 90 tablet Active metoprolol tartrate (Lopressor) 100 MG tablet TAKE ONE TABLET TWICE DAILY IN THE MORNING AND AT BEDTIME 180 tablet Active dilTIAZem CD (Cardizem CD) 180 MG 24 hr capsule TAKE ONE CAPSULE EVERY MORNING 90 capsule Active loratadine (Claritin) 10 MG tablet TAKE ONE TABLET DAILY 90 tablet Active citalopram (CeleXA) 40 MG tablet TAKE 1 TABLET EVERY MORNING 30 tablet Active ketoconazole (NIZOral) 2 % cream APPLY TO THE AFFECTED AREA(S) EVERY MORNING 60 g Active glucose blood (FREESTYLE LITE) test stripIndications :Diabetes mellitus without complication ([facility]) Check bs tid 100 strip Active Mounjaro 7.5 MG/0.5ML solution auto-injector INJECT ONE PEN (=7.5MG) SUBCUTANEOUSLY ONCE A WEEK DIRECTED 2 mL Active Jardiance 25 MG TAKE ONE TABLET EVERY MORNING 30 tablet Active lidocaine-priloc josh (Emla) 2.5-2.5 % creamIndications :Primary fibromyalgia syndrome APPLY TO THE AFFECTED AREA(S) EVERY DAY NEEDED 60 g Active Alcohol Swabs (Alcohol Prep) 70 % pads USE TWO DAILY 100 each 025 Active LORazepam (Ativan) 0.5 MG tabletIndication s:Anxiety state TAKE ONE TABLET ONCE DAILY NEEDED FOR ANXIETY 28 tablet Active HYDROcodone-acet aminophen ([place]) 7.5-325 MG tabletIndication s:Back pain, unspecified back location, unspecified back pain laterality, unspecified chronicity TAKE ONE TABLET EVERY 8 HOURS NEEDED FOR SEVERE PAIN 84 tablet 025 Active Alcohol Swabs (Alcohol Prep) 70 % pads USE TWO DAILY 100 each 024 2024 Discontinued(R eorder (will not trigger notification to Pharmacy)) empagliflozin (Jardiance) 25 MG Take 1 tablet (25 mg) by mouth Once per day. 30 tablet 024 2024 Discontinued lidocaine-priloc josh (Emla) 2.5-2.5 % creamIndications :Primary fibromyalgia syndrome APPLY TO THE AFFECTED AREA(S) EVERY DAY NEEDED 60 g 3 024 2024 Discontinued Mounjaro 7.5 MG/0.5ML solution auto-injector Inject 7.5 mg under the skin 1 (one) time per week. 2 mL 2 025 2024 Discontinued FREESTYLE LITE test stripIndications :Diabetes mellitus without complication (HCC) TEST BLOOD SUGAR FOUR TIMES DAILY 100 strip 025 2024 Discontinued(R eorder (will not trigger notification to Pharmacy)) LORazepam (Ativan) 0.5 MG tabletIndication s:Anxiety state TAKE ONE TABLET DAILY NEEDED FOR ANXIETY 28 tablet 025 2024 Discontinued HYDROcodone-acet aminophen ([place]) 7.5-325 MG tabletIndication s:Back pain, unspecified back location, unspecified back pain laterality, unspecified chronicity Take 1 tablet by mouth every 8 (eight) hours if needed for severe pain. 84 tablet 025 2024 Discontinued Active Problems Problem Noted Date Diagnosed Date Chronic coccygeal pain 02/11/2025 Long-term current use of opiate analgesic 2024 Asthma 08/12/2024 Gastroesophageal reflux disease 08/12/2024 Hypertension 08/12/2024 Anxiety 08/12/2024 Nonischemic cardiomyopathy ([facility]/HCC) 08/12/2024 Severe obesity ([facility]/HCC) 08/12/2024 Presence of permanent cardiac pacemaker 01/05/20 20 Cardiomyopathy 11/12/2019 Primary dilated cardiomyopathy ([facility]/HCC) 019 Chronic recurrent major depressive disorder 03/05 Diabetes [...] organization. Date Type Department Care Team Description 07/28/2025 [facility] Information Management [address] [place] [address] ProviderHumphrey MD 07/26/2025 Refill [facility] [address] [place] [address] Eneida Connelly MD Anxiety state; Back pain, unspecified back location, unspecified back pain laterality, unspecified chronicity 07/26/2025 Refill [facility] & PEDS [address] [place] [address] Helen Marte MD 07/26/2025 Telephone [facility] MEDICINE [address] [place] [address] Helen Marte MD Med Refill 07/25/2025 Refill [facility] MED [facility] PEDS [address] [place], [place] [phone] Connie Yepez MD Primary fibromyalgia syndrome 07/23/2025 Refill [facility] P[facility]S [address] [place] [address] Helen Marte MD 07/14/2025 Refill [facility] & PEDS [address] [place] [address] Malka Travis PharmD 07/12/2025 11:00 AM EDT Telemedicine [facility] P[facility]S [address] [place] [address] Dora Matute RN Back pain, unspecified back location, unspecified back pain laterality, unspecified chronicity 07/12/2025 Travel 06/28/2025 Refill [facility] & PEDS [address] [place] [address] Eneida Connelly MD Anxiety state; Back pain, unspecified back location, unspecified back pain laterality, unspecified chronicity; Diabetes mellitus without complication ([facility]) 06/28/2025 Refill [facility] [address] [place] [address] Dora Matute RN Anxiety state; Back pain, unspecified back location, unspecified back pain laterality, unspecified chronicity 06/28/2025 Telephone [facility] MEDICINE [address] [place] [address] Helen Marte MD Med Refill 06/25/2025 Refill [facility] [address] [place] [address] Helen Marte MD Diabetes mellitus without complication ([facility]) 06/03/2025 Travel 05/31/2025 Refill [facility] [address] [place] [address] Dora Matute RN Back pain, unspecified back location, unspecified back pain laterality, unspecified chronicity; Anxiety state 05/31/2025 Telephone [facility] [address] [place] [address] Helen Marte MD Med Refill 05/27/2025 Refill [facility] [address] [place] [address] Helen Marte MD 05/06/2025 Travel 05/03/2025 Refill [facility] [address] [place] [address] Dora Matute RN Back pain, unspecified back location, unspecified back pain laterality, unspecified chronicity; Anxiety state 05/03/2025 Telephone [facility] MEDICINE 230 [facility], [place] [phone] Helen Marte MD Med Refill from Last 3 Months Immunizations Immunization Administration Dates Next Due HepB-CpG 06/03/2025 Influenza injectable quadriv alent preservative free 08/21/2022,10/06/2021,07/27/2020 Influenza, seasonal, injecta ble, preservative free 08/25/2024 Pneumococcal Conjugate PCV 20 01/14/2025 TD (adult), 2 Lf tetanus tox oid, preservative free, adsorbed 03/04/1995 Tdap 06/03/2025 Social History Tobacco Use Types Packs/Day Years [...] 84 02/11/2025 11:19 AM EDT Temperature 36.7 C (98 F) 02/11/2025 11:19 AM EDT Respiratory Rate 20 [...] Description 08/05/2025 2:00 PM EDT Medication Management [facility] [address] [place] [address] Malka Travis, PharmD [address] [place] [address] 10/19/2025 1:30 PM EST Clinical Support [facility] [address] [place] [address] Dora Matute, YOSHI [address] [place] [address] Health Maintenance Due Date Last Done Comments CT Colonography 1966 FIT DNA/Cologuard 1966 FIT 1966 FOBT 1966 HIV Screening 1966 Sigmoidoscopy 1966 Eye Exam 1976 Hepatitis C Screening 1984 Pap Smear 1987 Cervical Cancer Screening 1996 HPV/Cotest 1996 Zoster Vaccines (1 of 2) 2016 Dental Prophylaxis 02/15/2017 08/16/2016, 1 11/19/2014, 02/11/2015 Dental Oral Exam 10/23/2019 04/22/2019, , 12/22/2014 Dental X-Ray: Full Mouth 04/23/2022 04/22/2019, 12/05 Diabetes: Foot Exam 02/25/2025 02/26/2024, 02/26/2024, 02/26/2024, Additional history exists Hepatitis B Vaccines (2 of 2 - CpG 2-dose series) 07/01/2025 06/03/2025 COVID-19 Vaccine ( season) 2025 Influenza Vaccine (#1) 2025 , 08/21/2022, 10/06/2021, Additional history exists Dental X-Ray: Bitewings 08/13/2025 08/12/20, 04/22/2019, 03/02/2019, Additional history exists Diabetes: Hemoglobin A1C 11/06/2025 025, 02/11/2025, 08/25/2024, Additional history exists Alcohol/Substance Use Screening 12/17/2025 12/17/2024 Depression Screening 12/17/2025 12/17/2024, 12/17/19 Disability Screening 12/17/2025 12/17/2024 SDOH Screening 12/17/2025 12/17/2024 Tobacco Screening 02/11/2026 02/11/2025 Diabetes: Urine Protein Screening 03/17/2026 03/17/2025, 02/26/2024, 08/21/2022, Additional history exists Lipid Panel 03/17/2026 03/17/2025, 02/03, 08/21/2022, Additional history exists Mammogram 09/25/2026 09/25/2024, 11/05, 11/05/2017 Colonoscopy 10/20/2028 10/20/2018 Colorectal Cancer Screening 10/20/2028 DTaP/Tdap/Td Vaccines (2 - Td or Tdap) 06/03/2035 06/03/2025, 03/04/1995 RSV Patients and Patients Aged 60 years or older (1 - 1-dose 75+ series) 2041 Pneumococcal Vaccine: 50+ Years Completed 01/14/2025 HIB [...] patient's age to complete this topic Meningococcal B Vaccine Aged Out No l onger eligible based on patient's age to complete [...] (TTE) COMPLETE Routine 07/22/2025 3:28 PM EDT POCT GLYCATED HEMOGLOBIN, TOTAL Routine 05/06/2025 2:27 PM EDT Diabetes mellitus without complication (CMS/HCC) ALBUMIN, RANDOM URINE W/CREATININE Routine 03/17/2025 11:12 AM EDT LIPID PANEL, STANDARD Routine 03/17/2025 11:04 AM EDT BI MAMMOGRAM SCREENING TOMOSYNTHESIS BILATERAL Routine 09/25/2024 12:00 PM EST Breast cancer screening by mammogram BITEWING - SINGLE RADIOGRAPHIC IMAGE Routine 08/12/2024 11:30 AM EDT Closed fracture of tooth, initial encounter INTRAORAL - COMPLETE SERIES OF RADIOGRAPHIC IMAGES Routine 04/22/2019 12:00 AM EDT PERIODIC ORAL EVALUATION - ESTABLISHED PATIENT Routine 04/22/2019 12:00 AM EDT HM COLONOSCOPY Routine 10/20/2018 PROPHYLAXIS - ADULT Routine 08/16/2016 1 2:00 AM EDT from Last 3 Months or Most Recently Relevant to Health Maintenance Results * Transthoracic echo (TTE) complete (07/22/2025 3:28 PM EDT) Historical Provider CV ECHO PROCEDURES Final Result * (ABNORMAL) POCT A1C (05/06/2025 2:27 PM EDT) Hemoglobin A1C 6.9(A) 4.0 - 5.7 % QC Media Lot # [id number] Lot# Expiration Date Blood 05/06/2025 2:27 PM EDT Helen Marte MD POINT OF CARE TEST ENTER/EDIT ORDERABLES Final Result * Albumin, Random Urine W/Creatinine (03/17/2025 11:12 AM EDT) Creatinine, Urine 92.33 mg/dL [facility] Microalbumin Urine <5.0 mg/L [facility] Microalbum Creatinine Ratio Ur TNP <30 ug/mg cr [facility] Comment:Unable to calculate albumin/creatinine ratio due to lowmicroalbumin or creatinine result. 03/17/2025 11:1 2 AM EDT 03/17/2025 2:48 PM EDT Helen Marte MD LAB URINE ORDERABLES Final Re sult [facility] [address] [place] [phone] * Lipid Panel, Standard (03/17/2025 11:04 AM EDT) Triglycerides 90 <150 mg/dL [facility] Comment:Desirable Triglyceri de: less than 150 mg/dLBorderline High Triglyceride 150-199 mg/dLHigh Triglyceride: 200-499 mg/dLVery High Triglyceride: greater than or equal to 5OO mg/dL Cholesterol 134 <200 mg/dL [facility] Comment:Desirable Cholestero l: less than 200 mg/dLBorderline High Cholesterol: 200-239 mg/dLHigh Cholesterol: greater than 239 mg/dL LDL Cholesterol Calculated 71 <100 mg/dL [facility] Comment:Desirable LDL: less than 100 mg/dLNear Optimal/Above Optimal LDL: 110- 129 mg/dLBorderline High LDL: 130-159 mg/dLHigh LDL: 160-189 mg/dLVery High LDL: greater than or equal to 190 mg/dL HDL Cholesterol 45 >40 mg/dL [facility] Comment:Desirable HDL: great er than 40 mg/dL Note: This HDL assay may give artificially low results in patients with liver disease. 03/17/2025 11:0 4 AM EDT 03/17/2025 2:49 PM EDT us Helen Marte MD LAB BLOOD ORDERABLES Final Re sult [facility] [address] [place] [phone] * BI Mammogram Screening Tomosynthesis Bilateral (09/25/2024 12:00 PM EST) Anatomical Region Laterality Modality Breast Bilateral Mammography 09/25/2024 12:0 0 PM EST Narrative 10/06/2024 12:50 PM EST [address] [place] [address] Mammography Report Signed Patient: Reba Louise MR#: [id number] 2 : 1965 Acct:[id number] Age/Sex: 59 / F ADM Date: 09/25/24 Loc: HO.MAMMO Attending Dr: Helen Marte MD Ordering Physician: Helen Marte MD Results: 2Be nign Findings Date of Service: 09/25/24 Follow Up: 1 Year From Orig inal Mammogram Procedure(s): MM tomosynthesis screening BI Accession Number(s): [id number] cc: Helen Marte MD EXAMINATION: MM SCREENING [...] by: María Smalls DO 10/06/2024 12:47 PM [facility] Dictated By: María Smalls DO Signed By: <Electronically signed by María Smalls DO in OV> 10/06/24 1247 DD/ 1200 TD/TT: 09/25/24 1218 [place] Closer: Procedure Note Donotuseinterpreter, Image - 10/06/2024 [facility] [address] [place] [address] Mammography Report Signed Patient: Reba LouiseMR#: [id number] 2 : 1965Acct:[id number] Age/Sex: 59 / FADM Date: 09/25/24 Loc: HO.MAMMO Attending Dr: Helen Marte MD Ordering Physician: Helen Marte MDResults: 2Be nign Findings Date of Service: 09/25/24Follow Up: 1 Year From Orig inal Mammogram Procedure(s): MM tomosynthesis screening BI Accession Number(s): [id number] cc: Helen Marte MD EXAMINATION: MM SCREENING [...] María Smalls DO 10/06/2024 12:47 PM EST Dictated By: María Smalls DO Signed By: <Electronically signed by María Smalls DO in OV> 10/06/24 1247 DD/ 1200 TD/TT: 09/25/24 1218 [place] Closer: Helen Marte MD IMG BI PROCEDURES Final Resul t * Hm Colonoscopy (10/20/2018) Colonoscopy Normal Normal Narrative Maritza Dinero - 10/20/2018 Recommended 10 year follow up Historical Provider HEALTH MAINTENANCE Final Result from Last 3 Months or Most Recently Relevant to Health Maintenance Insurance [facility] STANDARD [facility] < 65 DENTAL - [facility] Care Teams Channeling Machine Runner Relationship Specialty Start Date End Date Helen Marte MD [address] [place] [address] PCP - General Family Medicine 11/04/18 Malka Travis, Afshin [address] [place] [address] Pharmacist Internal Medicine 01/14/25
--- OUTSIDE RECORDS SUMMARY | 2025-08-03 13:15 | XMS_ITS | Encounter Summary ---
Author Organization [employer] Address [address] [facility] 7 [place] [address] Care Team Providers Care Slicing Machine Tender Name Role Phone Helen Marte MD Primary Care Provider [phone] Malka Travis PharmD Unavailable [phone] Reason for Visit * Reason Onset Date Comments Med Refill 04/05/2025 Encounter Details Date Type Department Care Team (Late st Contact Info) Description 04/05/2025 Telephone [facility] MEDIC[facility] [address] [place] [address] Helen Marte MD [address] [place] [address] Med Refill Social History Tobacco Use Types [...] Telephone Encounter - Page Beckford - 04/05/2025 9:13 AM EDT TC from pt requesting medication refill. Medications needing refill : HYDROcodone-acetaminophen (Humphrey) 7.5-325 MG tablet To be sent to: [facility] pharmacy documented in this encounter Plan of Treatment Upcoming Encounters Date Type Department Care Team ([facility] st Contact Info) Description 08/05/2025 2:00 PM EDT Medication Management [facility] MED & PEDS [address] [place] [address] Malka Travis, PharmD [address] [place] [address] 10/19/2025 1:30 PM EST Clinical Support [facility] MED [facility] PED[facility] [address] [place] [address] Dora Matute, RN [address] [place] [address] documented as of this encounter Visit Diagnoses Not on filedocumented in this encounter Additional Health Concerns Assessment Noted Time PHQ-9 Depression Total Score: 7 12/17/19 25 1:03 PM EST documented as of this encounter Care Teams Slicing Machine Tender Relationship Specialty Start Date End Date Helen Marte MD [address] [place] [address] PCP - General Family Medicine 11/04/18 Malka Travis PharmD [address] [place] [address] Pharmacist Internal Medicine 01/14/25 documented as of this encounter
--- OUTSIDE RECORDS SUMMARY | 2025-08-03 13:15 | XMS_ITS | Encounter Summary ---
Author Organization [employer] Address [address] [facility] 7 [place] [address] Care Team Providers Care Client Services Account Manager Name Role Phone Helen Marte MD Primary Care Provider [phone] Malka Travis PharmD Unavailable [phone] Reason for Visit * Reason Onset Date Comments Med Refill 12/15/2024 Encounter Details Date Type Department Care Team (Late st Contact Info) Description 12/15/[address] [facility] MEDICINE [address] [place] [address] Helen Marte MD [address] [place] [address] Med Refill Social History Tobacco Use Types [...] LORazepam (Ativan) 0.5 MG tablet - HYDROcodone-acetaminophen ([place]) 7.5-325 MG tablet To be sent to: [facility] Pharmacy documented in this encounter Plan of Treatment Upcoming Encounters Date Type Department Care Team (Late st Contact Info) Description 08/05/2025 2:00 PM EDT Medication Management [facility] MED & PEDS [address] [place] [address] Malka Travis, PharmD [address] [place] [address] 10/19/2025 1:30 PM EST Clinical Support [facility] MED & PEDS [address] [place] [address] Dora Matute, RN [address] [place] [address] documented as of this encounter Visit Diagnoses Not on filedocumented in this encounter Additional Health Concerns Assessment Noted Time PHQ-9 Depression Total Score: 6 02/26/20 24 11:09 AM EDT documented as of this encounter Care Teams Client Services Account Manager Relationship Specialty Start Date End Date Helen Marte MD [address] [place] [address] PCP - General Family Medicine 11/04/18 Malka Travis PharmD [address] [place] [phone] Pharmacist Internal Medicine 01/14/25 documented as of this encounter
--- OUTSIDE RECORDS SUMMARY | 2025-08-03 13:15 | XMS_ITS | Encounter Summary ---
Author Organization [employer] Address [address] [place] [address] 7 [place] [address] Care Team Providers Care Deckhand Name Role Phone Helen Marte MD Primary Care Provider [phone] Malka Travis PharmD Unavailable Reason for Visit * Reason Comments Med Refill Encounter Details Date Type Department Care Team ([facility] st Contact Info) Description 12/11/2023 Refill [facility] [address] [place], [place] [phone] Helen Marte MD [address] [place] [address] Back pain, unspecified back location, unspecified back [...] [facility] [address] [place] [address] Malka Travis PharmD [address] [place] [address] 10/19/2025 1:30 PM EST Clinical Support [facility] [address] [place] [address] Dora Matute RN [address] [place] [address] documented as of this encounter Visit Diagnoses Diagnosis Back pain, unspecified back location, unspecified back pain laterality, unspecified chronicity documented in this encounter Additional Health Concerns Assessment Noted Time PHQ-9 Depression Total Score: 3 01/24/20 23 10:25 AM EDT documented as of this encounter Care Teams Deckhand Relationship Specialty Start Date End Date Helen Marte MD [address] [place] [address] PCP - General Family Medicine 11/04/18 Malka Travis PharmD [address] [place] [address] Pharmacist Internal Medicine 01/14/25 documented as of this encounter
--- OUTSIDE RECORDS SUMMARY | 2025-08-03 13:15 | XMS_ITS | Encounter Summary ---
Author Organization [employer] Address [address] [facility] [address]t [place] [address] Care Team Providers Care Etl Programmer Name Role Phone Helen Marte MD Primary Care Provider [phone] Malka Travis PharmD Unavailable [phone] Encounter Details Date Type Department Care Team (Late st Contact Info) Description 09/13/2023 Abstract [facility] [address] [place] [address] Maritza Dinero Social History Tobacco Use Types [...] Description 08/05/2025 2:00 PM EDT Medication Management [facility] [address] [place], [place] [phone] Malka Travis PharmD [address] [place], [place] [phone] 10/19/2025 1:30 PM EST Clinical Support [facility] [address] [place], [place] [phone] Dora Matute RN [address] [place], [place] [phone] documented as of this encounter Procedures Procedure Name Priority Date/Time Associated Diagnosis Comments COLONOSCOPY Routine 10/20/2018 documented in this encounter Results * Colonoscopy (10/20/2018) Colonoscopy Normal Normal Narrative Maritza Dinero - 10/20/2018 Recommended 10 year follow up Historical Provider HEALTH MAINTENANCE Final Result documented in this encounter Visit Diagnoses Not on filedocumented in this encounter Additional Health Concerns Assessment Noted Time PHQ-9 Depression Total Score: 3 01/24/20 23 10:25 AM EDT documented as of this encounter Care Teams Etl Programmer Relationship Specialty Start Date End Date Helen Marte MD [address] [place], [place] [phone] PCP - General Family Medicine 11/04/18 Malka Travis PharmD [address] [place], [place] [phone] Pharmacist Internal Medicine 01/14/25 documented as of this encounter
--- OUTSIDE RECORDS SUMMARY | 2025-08-03 13:15 | XMS_ITS | Encounter Summary ---
Author Organization [employer] Address [address] [place] [address] 7 [place] [address] Care Team Providers Care Wire Rigger Name Role Phone Helen Marte MD Primary Care Provider [phone] Malka Travis PharmD Unavailable [phone] Reason for Visit * Reason Comments Med Refill Encounter Details Date Type Department Care Team ([facility] st Contact Info) Description 09/03/2023 Refill [facility] [address] [place], [place] [phone] Helen Marte MD [address] [place] [address] Back pain, unspecified back location, unspecified back [...] [facility] [address] [place] [address] Malka Travis PharmD [address] [place] [address] 10/19/2025 1:30 PM EST Clinical Support [facility] [address] [place] [address] Dora Matute RN [address] [place] [address] documented as of this encounter Visit Diagnoses Diagnosis Back pain, unspecified back location, unspecified back pain laterality, unspecified chronicity documented in this encounter Additional Health Concerns Assessment Noted Time PHQ-9 Depression Total Score: 3 01/24/20 23 10:25 AM EDT documented as of this encounter Care Teams Wire Rigger Relationship Specialty Start Date End Date Helen Marte MD [address] [place] [address] PCP - General Family Medicine 11/04/18 Malka Travis PharmD [address] [place] [address] Pharmacist Internal Medicine 01/14/25 documented as of this encounter
--- OUTSIDE RECORDS SUMMARY | 2025-08-03 13:16 | XMS_ITS | Encounter Summary ---
Author Organization [employer] Address [address] [place] [address] 7 [place] [address] Care Team Providers Care Carpenter Refrigerator Name Role Phone Helen Marte MD Primary Care Provider [phone] Malka Travis PharmD Unavailable [phone] Encounter Details Date Type Department Care Team ([facility] st Contact Info) Description 09/18/2024 Orders Only [facility] [address] [place], [place] [phone] NegronPacheco Noel MD [address] [place] [address] Social History Tobacco Use Types Packs/Day Years [...] PM EDT Medication Management [facility] [address] [place] [address] Malka Travis PharmD [address] [place] [address] 10/19/2025 1:30 PM EST Clinical Support [facility] [address] [place], [place] [phone] Dora Matute, YOSHI [address] [place] [address] documented as of this encounter Visit Diagnoses Not on filedocumented in this encounter Additional Health Concerns Assessment Noted Time PHQ-9 Depression Total Score: 6 02/26/20 24 11:09 AM EDT documented as of this encounter Care Teams Carpenter Refrigerator Relationship Specialty Start Date End Date Helen Marte MD [address] [place] [address] PCP - General Family Medicine 11/04/18 Malka Travis PharmD [address] [place] [address] Pharmacist Internal Medicine 01/14/25 documented as of this encounter
--- OUTSIDE RECORDS SUMMARY | 2025-08-03 13:16 | XMS_ITS | Encounter Summary ---
Author Organization [employer] Address [address] [place] [address] 7 [place] [address] Care Team Providers Care Installer Interior Assemblies Name Role Phone Helen Marte MD Primary Care Provider [phone] Malka Travis PharmD Unavailable [phone] Encounter Details Date Type Department Care Team (Late st Contact Info) Description 04/30/2023 Orders Only [facility] [address] [place] [address] Chioma Neely LPN Social History Tobacco Use [...] [facility] [address] [place] [address] Malka Travis, PharmD [address] [place] [address] 10/19/2025 1:30 PM EST Clinical Support [facility] [address] [place] [address] Dora Matute, RN [address] [place], [place] [phone] documented as of this encounter Visit Diagnoses Not on filedocumented in this encounter Additional Health Concerns Assessment Noted Time PHQ-9 Depression Total Score: 3 01/24/20 23 10:25 AM EDT documented as of this encounter Care Teams Installer Interior Assemblies Relationship Specialty Start Date End Date Helen Marte MD [address] [place] [address] PCP - General Family Medicine 11/04/18 Malka Travis PharmD [address] [place] [address] Pharmacist Internal Medicine 01/14/25 documented as of this encounter
== END 2025-08-03 12:50 | disposition home or self-care (01) ==
LOC: HO.HGI 11:59
PROVIDERS: PCP Pediatrics; Visit Provider Nurse Practitioner
DX: K21.9 Gastro-esophageal reflux disease without esophagitis (principal); K31.84 Gastroparesis; K59.04 Chronic idiopathic constipation; R14.0 Abdominal distension (gaseous)
CPT/HCPCS: 99213

== ENCOUNTER → 2025-08-03 11:59 | Outpatient (BNVA) | payer OTHER, SELFPAY | PROVIDERS: PCP Pediatrics; Visit Provider Nurse Practitioner | DX: K21.9 Gastro-esophageal reflux disease without esophagitis (principal); K31.84 Gastroparesis; K59.04 Chronic idiopathic constipation; R14.0 Abdominal distension (gaseous) | CPT/HCPCS: 99212 ==